=== PATIENT | male | born 1935 | race Caucasian/White ===

== ENCOUNTER 2016-08-19 02:28 | Emergency (ER) | payer MEDICARE, OTHER ==
[2016-08-19 02:38] VITALS: PULSE 72; O2SAT 96
[2016-08-19] MEDS ORDERED: ULTRAM 50 MG PO ONE (02:46)
--- NOTE | 2016-08-19 02:54 | ERPHSYRPT ---
- History of Present Illness Time Seen by Provider: 08/19/16 02:35 Source: patient Exam Limitations: no limitations Patient Subjective Stated Complaint: pt states approx 1/2 hour [employer] he was checking on something and missed a step and fell -he is co right knee pain and right upper back and scapular pain -there are no obvious signs of injury on he back and a scrape on the right knee -he is takative and ambulatory without difficulty on arr Triage Nursing Assessment: pt is awake and alert and able to answer questions- he undressed himself Physician History: ABOUT 30 MINUTES AGO PT MISSED A BASEMENT STEP AND FELL WITH RESULTANT PAIN IN THE RIGHT SHOULDER POSTERIORLY, RIGHT KNEE AND NECK. PT DENIES LOC, VOMITING, CHEST PAIN, SHORTNESS OF AIR, NUMBNESS, WEAKNESS. Allergies/Adverse Reactions: No Known Drug Allergies Allergy (Verified 08/19/16 02:45) Home Medications: Albuterol 8 gm Mdi Hfa [Ventolin Hfa MDI] 8 gm IH Q4HPRN PRN 04/12/14 [ History] Albuterol/Ipratropium cc [Combivent Inhaler COMMON CANISTER] 15 gm IH DAILY 04/12/14 [History] Ascorbic Acid [Vitamin C] 1,000 mg PO DAILY 04/12/14 [History] Aspirin 81 mg PO DAILY 04/12/14 [History] Atorvastatin Calcium [Lipitor] 10 mg PO QPM 04/12/14 [History] Calcium & Magnesium Carbonate [Antacid Gelatin Caplet] 1 each PO DAILY 04/12/14 [History] Lorazepam 0.5 mg [Ativan 0.5 MG] 0.5 mg PO HS 04/12/14 [History] Methylcellulose (with Sugar) [Citrucel Clear-Mix Powder] 539 gm PO DAILY [History] Multivitamin [Multi Vitamin Daily] 1 each PO DAILY 04/12/14 [History] Rabeprazole Sodium [Aciphex] 20 mg PO DAILY 04/12/14 [History] Hydrocodone Bit/Acetaminophen [[place] 10-325 Tablet] 1 tab DAILY PRN PRN [History] Hx Tetanus, Diphtheria Vaccination/Date Given: Yes Hx Influenza Vaccination/Date Given: Yes Hx Pneumococcal Vaccination/Date Given: Yes - Review of Systems Respiratory: No Dyspnea Cardiac: No Chest Pain Abdominal/Gastrointestinal: No Abdominal Pain, No Vomiting Musculoskeletal: Neck Pain, Joint Pain (RIGHT SHOULDER AND RIGHT KNEE PAIN ) All Other Systems: Reviewed and Negative - Past Medical History Pertinent Past Medical History: Yes Neurological History: No Pertinent History ENT History: No Pertinent History Cardiac History: No Pertinent History, Other Respiratory History: Bronchitis, COPD, Other Endocrine Medical History: No Pertinent History Musculoskeletal History: Osteoarthritis, Other GI Medical History: Hernia History: No Pertinent History Psycho-Social History: No Pertinent History Male Reproductive Disorders: No Pertinent History Other Medical History: heart murmur, Rheumatic fever - Past Surgical History Past Surgical History: Yes Neuro Surgical History: No Pertinent History Cardiac: No Pertinent History Respiratory: Other Gastrointestinal: Hernia Repair Genitourinary: No Pertinent History Musculoskeletal: No Pertinent History Male Surgical History: Prostate Surgery, Testicular Surgery Other Surgical History: sinus surgery - Social History Smoking Status: Never smoker How long have you smoked: 4 years Exposure to second hand smoke: No Drug Use: none Patient Lives Alone: No - Nursing Vital Signs Nursing Vital Signs: Initial Vital Signs Temperature 99.1 F Temperature Source Oral Pulse Rate 72 Respiratory Rate 16 Pain Intensity 4 - Debra Coma Score Best Eye Response ([place]): (4) open spontaneously Best Verbal Response ([place]): (5) oriented Best Motor Response ([place]): (6) obeys commands [place] Total: 15 - Physical Exam General Appearance: alert Head Injury: no evidence of injury Eye Exam: PERRL/EOMI, eyes nml inspection ENT Exam: airway nml, nml ext.inspection, hearing grossly normal, other ( CERUMEN OCCLUSION OF LEFT EAR) Neck Exam: trachea midline, full range of motion, No tenderness Respiratory/Chest Exam: normal breath sounds Cardiovascular Exam: normal heart sounds Gastrointestinal Exam: soft, normal bowel sounds, No tenderness Back Exam: normal range of motion Extremity Exam: normal range of motion, pelvis stable, tenderness (MILD TENDERNESS OF POSTERIOR ASPECT OF THE RIGHT SHOULDER.), No motor deficit, No pedal edema Peripheral Pulses: dorsalis-pedis (R): 3+, dorsalis-pedis (L): 3+ Neurologic Exam: alert, cooperative Skin Exam: abrasion (MILD TENDERNESS OVER AN ABRASION OF THE RIGHT KNEE) SpO2 Interpretation: normal SpO2: 96 Oxygen Delivery: Room Air - Course Nursing assessment & vital signs reviewed: Yes - Radiology Exams Right Knee X-ray Interpretation: Interpreted by me, No Fracture Right Shoulder X-ray Interpretation: Interpreted by me, No Fracture - CT Exams Cervical Spine CT Interpretation: Tele-radiologist Report (NO ACUTE OSSEOUS ABNORMALITY.) Ordered Tests: Active Orders 24 hr Category Date Time Status Cervical Collar Application STAT Care 08/19/16 03:55 Active Ear Irrigation STAT Care 08/19/16 02:46 Active Wound Care STAT Care 08/19/16 03:48 Active CERVICAL SPINE WO CONTRAST [CT] Stat Exams 08/19/16 02:48 Taken KNEE (3 VIEWS) Stat Exams 08/19/16 02:47 Taken SHOULDER Stat Exams 08/19/16 02:47 Taken Medication Summary Discontinued Medications Generic Name Dose Route Start Last Admin Trade Name Freq PRN Reason Stop Dose Admin Bacitracin Confirm 08/19/16 03:47 Baciguent Packet Administered 08/19/16 03:48 Dose 1 gm .ROUTE .STK-MED ONE Tramadol HCl 50 mg 08/19/16 02:46 08/19/16 03:21 Ultram 50 Mg PO 08/19/16 02:47 50 mg STAT ONE Administration Tramadol HCl Confirm 08/19/16 03:16 Ultram 50 Mg Administered 08/19/16 03:17 Dose 50 mg .ROUTE .STK-MED ONE - Progress Progress Note: 08/19/16 03:49 AFTER ER NURSE REMOVED CERUMEN BY IRRIGATION OF LEFT EAR LEFT TM IS WNL. - Departure Time of Disposition: 03:57 Departure Disposition: Home Clinical Impression: RIGHT SHOULDER SPRAIN, ABRASION/CONTUSION OF RIGHT KNEE, CERVICAL STRAIN, CERUMEN IMPACTION OF LEFT EAR Condition: Fair Critical Care Time: No Referrals: JESUS ALBERTO YEAGER [Primary Care Provider] - Instructions: Contusion, Prevent Falls, Cervical Strain Additional Instructions: FOLLOW UP WITH PRIVATE DOCTOR TOMORROW. NEOSPORIN & BANDAGE DAILY TO ABRASION ON RIGHT KNEE. WEAR SOFT C-COLLAR FOR 2 WEEKS ONLY WHILE AWAKE. Prescriptions: Naproxen 375 mg [Naprosyn 375 mg] 375 mg PO Q12H PRN PRN #20 tablet PRN Reason: Pain
[2016-08-19] MEDS ORDERED: ULTRAM 50 MG ONE (03:16)
[2016-08-19] MEDS ORDERED: BACIGUENT PACKET ONE (03:47)
[2016-08-19 04:22] VITALS: BP 150/80
[2016-08-19] MEDS ORDERED: BACIGUENT PACKET TP ONE (05:05)
--- NOTE | 2016-08-19 08:41 | XRAY ---
Indication: Neck and shoulder pain following fall. Multiple contiguous axial images obtained through the cervical spine. Sagittal and coronal reformatted images obtained. Comparison: April 19, 2014. Axial images again negative for acute fracture, suspicious bony lesions, or spinal canal stenosis. There remains multilevel bilateral degenerative facet arthropathy and atlantoaxial degenerative changes. Sagittal and coronal reformatted images demonstrates normal alignment. Again very minimal C5-C6 disc space narrowing. No acute compression fracture, subluxation, or jumped facet. Visualized noncontrasted soft tissues including base of the brain and lung apices are unremarkable. Impression: 1. Again negative for acute fracture/subluxation. 2. Stable multilevel degenerative changes. Comment: Preliminary interpretation was made by [facility]. No critical discrepancy. CT DI 108.27
--- NOTE | 2016-08-19 08:43 | XRAY ---
Indication: Pain following fall. Comparison: August 06, 2014 3 views of the right shoulder again demonstrates mild osteopenia and moderate AC degenerative arthropathy. No new/acute bony, articular, or soft tissue findings.
--- NOTE | 2016-08-19 08:45 | XRAY ---
Indication: Pain following fall. Comparison: September 28, 2013 3 views of the right knee again demonstrates mild osteopenia, minimal medial joint space narrowing, and tiny patellar spurring. No new/acute bony, articular, or soft tissue abnormalities.
== END 2016-08-19 04:15 | disposition home or self-care (01) ==
LOC: ED 02:28
DX: S43.401A Unspecified sprain of right shoulder joint, initial encounter (principal); S80.01XA Contusion of right knee, initial encounter; S80.211A Abrasion, right knee, initial encounter; S16.1XXA Strain of muscle, fascia and tendon at neck level, initial encounter; H61.22 Impacted cerumen, left ear; W10.9XXA Fall (on) (from) unspecified stairs and steps, initial encounter
CPT/HCPCS: 69210; 72125; 73030; 73562; 99283; 99284; L0120

== ENCOUNTER 2016-11-21 15:11 | Emergency (ER) | payer MEDICARE, OTHER ==
[2016-11-21 15:30] VITALS: BP 142/88; PULSE 50; O2SAT 98
--- NOTE | 2016-11-21 15:47 | ERPHSYRPT ---
- History of Present Illness Time Seen by Provider: 11/21/16 15:31 Source: patient Patient Subjective Stated Complaint: soreness in right ear. states if off balance Triage Nursing Assessment: right ear pain for three days. no drainage noted. states gets off balance when he has an earache. sees dr. jack. Physician History: CC: right ear pain Hx: 81 y/o patient of Dr Myrna Daly. He has some right ear pain and some vertigo when rolls in the bed. He has been on drops but not sure what they are. Has seen Dr Jack. No headache, N/T/W. Some soreness in the right ear. No chest or abd pain. No V/D. Severity: mild ENT Location: ear (R) Allergies/Adverse Reactions: No Known Drug Allergies Allergy (Verified 08/19/16 02:45) Home Medications: Albuterol 8 gm Mdi Hfa [Ventolin Hfa MDI] 8 gm IH Q4HPRN PRN 04/12/14 [ History] Albuterol/Ipratropium cc [Combivent Inhaler COMMON CANISTER] 15 gm IH DAILY 04/12/14 [History] Ascorbic Acid [Vitamin C] 1,000 mg PO DAILY 04/12/14 [History] Aspirin 81 mg PO DAILY 04/12/14 [History] Atorvastatin Calcium [Lipitor] 10 mg PO QPM 04/12/14 [History] Calcium & Magnesium Carbonate [Antacid Gelatin Caplet] 1 each PO DAILY 04/12/14 [History] Lorazepam 0.5 mg [Ativan 0.5 MG] 0.5 mg PO HS 04/12/14 [History] Methylcellulose (with Sugar) [Citrucel Clear-Mix Powder] 539 gm PO DAILY [History] Multivitamin [Multi Vitamin Daily] 1 each PO DAILY 04/12/14 [History] Rabeprazole Sodium [Aciphex] 20 mg PO DAILY 04/12/14 [History] Hydrocodone Bit/Acetaminophen [[place] 10-325 Tablet] 1 tab DAILY PRN PRN [History] Hx Tetanus, Diphtheria Vaccination/Date Given: Yes Hx Influenza Vaccination/Date Given: Yes Hx Pneumococcal Vaccination/Date Given: No - Review of Systems Constitutional: No Fever Eyes: No Symptoms Ears, Nose, & Throat: Ear Pain (right), No Nose Discharge Respiratory: Cough (on abtx for bronchitis) Abdominal/Gastrointestinal: No Abdominal Pain, No Nausea, No Vomiting Skin: No Rash Neurological: No Focal Weakness, No Headache, No Parasthesia - Past Medical History Pertinent Past Medical History: Yes Neurological History: No Pertinent History ENT History: No Pertinent History Cardiac History: No Pertinent History, Other Respiratory History: Bronchitis, COPD, Other Endocrine Medical History: No Pertinent History Musculoskeletal History: Osteoarthritis, Other GI Medical History: Hernia History: No Pertinent History Psycho-Social History: No Pertinent History Male Reproductive Disorders: No Pertinent History Other Medical History: heart murmur, Rheumatic fever - Past Surgical History Past Surgical History: Yes Neuro Surgical History: No Pertinent History Cardiac: No Pertinent History Respiratory: Other Gastrointestinal: Hernia Repair Genitourinary: No Pertinent History Musculoskeletal: No Pertinent History Male Surgical History: Prostate Surgery, Testicular Surgery Other Surgical History: sinus surgery - Social History Smoking Status: Never smoker How long have you smoked: 4 years Exposure to second hand smoke: No Drug Use: none Patient Lives Alone: No - Nursing Vital Signs Nursing Vital Signs: Initial Vital Signs Temperature 98.1 F Temperature Source Oral Pulse Rate 50 Respiratory Rate 18 Blood Pressure [Right Arm] 142/88 Pain Intensity 8 - Physical Exam General Appearance: alert Eye Exam: bilateral eye: PERRL, EOMI (no nystagmus) Throat Exam: normal Neck Exam: normal inspection, non-tender, supple Cardiovascular/Respiratory Exam: normal breath sounds Abdominal Exam: non-tender, soft Neurologic Exam: alert, oriented x 3, cooperative Skin Exam: warm, dry, No rash SpO2 Interpretation: normal SpO2: 98 Oxygen Delivery: Room Air Comments: right ear: pain with movement of the pinna. Some canal edema, erythema, debris. Not swollen shut. - Course Nursing assessment & vital signs reviewed: Yes - Progress Progress Note: 11/21/16 15:46 Normal tandem walk, normal FTN, normal exam. Will Rx right OE and he will follow up with Dr Jack. Counseled pt/family regarding: diagnosis, need for follow-up - Departure Time of Disposition: 15:46 Departure Disposition: Home Clinical Impression: Otitis externa of right ear Condition: Stable Critical Care Time: No Referrals: JESUS ALBERTO DALY [Primary Care Provider] - ALIREZA JACK MD [CONSULTING PHYSICIAN] - Instructions: Otitis Externa Additional Instructions: Nothing in ear except Rx drops. Rx antivert if needed for dizzines- no driving or operating machinery if you take it. Follow up next week with Dr Jack. Return for problems or concerns. Prescriptions: Meclizine HCl 12.5 mg PO Q8H PRN PRN #10 tablet PRN Reason: Dizziness Fernando/Baci/Poly/Hc Ear Solution* [CORTISPORIN EAR DROPS Solution 1OML] 10 ml OT UD #1 bottle
== END 2016-11-21 16:05 | disposition home or self-care (01) ==
LOC: ED 15:11
DX: H66.91 Otitis media, unspecified, right ear (principal); R05 Cough; R42 Dizziness and giddiness
CPT/HCPCS: 99281; 99283

== ENCOUNTER 2017-11-02 14:43 | Emergency (ER) | payer MEDICARE, OTHER ==
[2017-11-02 15:08] VITALS: BP 138/81; PULSE 78; O2SAT 95
[2017-11-02] MEDS ORDERED: Zofran 4 MG/2 ML VIAL IV ONE (15:15)
[2017-11-02] MEDS ORDERED: MORPHINE SULFATE 4 MG INJ IV ONE (15:15)
[2017-11-02] MEDS ORDERED: Sodium Chloride 0.9% 1000 ML 1,000 ML IV SCH (15:15)
--- NOTE | 2017-11-02 15:22 | ERPHSYRPT ---
- History of Present Illness Time Seen by Provider: 11/02/17 15:00 Historian: patient Exam Limitations: no limitations Patient Subjective Stated Complaint: pt reports abd pain upon waking this morning. states his pain comes and goes. denies any n/v or toileting difficulty. Triage Nursing Assessment: pt is aox3, pupils perrl, resps easy and non labored , radial pulses are strong and equal, abd is soft and tender with palpation to the lower left and right quadrants. abd is slightly distended. bowel sounds are present and normoactive x4. no edema appreciated. cap refill < 3 sec. skin is pink warm dry. pt afebrile. Physician History: Pt started c/o diffuse abdominal pain, distension since 8 AM today. He states, it feels like " I was ". He denies injury, no nausea, vomiting, fever, chills, no diarrhea or urinary complaints. He denies abdominal surgery in the past, but one testicle was removed because of a "nodule", but denies cancer. Timing/Duration: hour(s) (7) Activities at Onset: none Quality: fullness, pressure Abdominal Pain Onset Location: generalized abdomen Pain Radiation: no radiation Severity of Pain-Max: severe Severity of Pain-Current: moderate Modifying Factors: Improves With: nothing Associated Symptoms: denies symptoms Previous symptoms: no prior history Allergies/Adverse Reactions: No Known Drug Allergies Allergy (Verified 11/02/17 15:08) Home Medications: Albuterol 8 gm Mdi Hfa [Ventolin Hfa MDI] 8 gm IH Q4HPRN PRN 04/12/14 [ History] Albuterol/Ipratropium cc [Combivent Inhaler COMMON CANISTER] 15 gm IH DAILY 04/12/14 [History] Ascorbic Acid [Vitamin C] 1,000 mg PO DAILY 04/12/14 [History] Aspirin 81 mg PO DAILY 04/12/14 [History] Atorvastatin Calcium [Lipitor] 10 mg PO QPM 04/12/14 [History] Calcium & Magnesium Carbonate [Antacid Gelatin Caplet] 1 each PO DAILY 04/12/14 [History] Lorazepam 0.5 mg [Ativan 0.5 MG] 0.5 mg PO HS 04/12/14 [History] Methylcellulose (with Sugar) [Citrucel Clear-Mix Powder] 539 gm PO DAILY [History] Multivitamin [Multi Vitamin Daily] 1 each PO DAILY 04/12/14 [History] Rabeprazole Sodium [Aciphex] 20 mg PO DAILY 04/12/14 [History] Hydrocodone Bit/Acetaminophen [[place] 10-325 Tablet] 1 tab DAILY PRN PRN [History] Hx Tetanus, Diphtheria Vaccination/Date Given: Yes Hx Influenza Vaccination/Date Given: Yes Hx Pneumococcal Vaccination/Date Given: Yes Immunizations Up to Date: Yes - Review of Systems Constitutional: No Symptoms Abdominal/Gastrointestinal: Abdominal Pain All Other Systems: Reviewed and Negative - Past Medical History Pertinent Past Medical History: Yes Neurological History: No Pertinent History ENT History: No Pertinent History Cardiac History: No Pertinent History, Other Respiratory History: Bronchitis, COPD, Other Endocrine Medical History: No Pertinent History Musculoskeletal History: Osteoarthritis, Other GI Medical History: Hernia History: No Pertinent History Psycho-Social History: No Pertinent History Male Reproductive Disorders: No Pertinent History Other Medical History: heart murmur, Rheumatic fever - Past Surgical History Past Surgical History: Yes Neuro Surgical History: No Pertinent History Cardiac: No Pertinent History Respiratory: Other Gastrointestinal: Hernia Repair Genitourinary: No Pertinent History Musculoskeletal: No Pertinent History Male Surgical History: Prostate Surgery, Testicular Surgery Other Surgical History: sinus surgery - Social History Smoking Status: Never smoker How long have you smoked: 4 years Exposure to second hand smoke: No Drug Use: none Patient Lives Alone: No - Nursing Vital Signs Nursing Vital Signs: Initial Vital Signs Temperature 97.4 F 11/02/17 14:59 Pulse Rate 78 11/02/17 14:59 Respiratory Rate 20 11/02/17 14:59 Blood Pressure 138/81 11/02/17 14:59 O2 Sat by Pulse Oximetry 95 11/02/17 14:59 Pain Scale Pain Intensity 0 - Physical Exam General Appearance: no apparent distress Eye Exam: eyes nml inspection Ears, Nose, Throat Exam: normal ENT inspection Neck Exam: normal inspection, non-tender, supple Respiratory Exam: normal breath sounds, lungs clear, airway intact Cardiovascular Exam: regular rate/rhythm, normal heart sounds, normal peripheral pulses, No murmur Gastrointestinal/Abdomen Exam: soft, tenderness (diffuse), distention, other ( hyperactive bowel sounds), No mass, No guarding, No ecchymosis, No pulsatile mass Male Genitalia Exam: normal genitalia, testicular tenderness (mild left testicular tenderness, no mass, no scrotal edema, redness, no inguinal mass, or enlarged lynph node.), No hernia, No testicular mass, No prostate tenderness Rectal Exam: normal exam, No mass Back Exam: normal inspection, No CVA tenderness Extremity Exam: normal inspection Neurologic Exam: alert, oriented x 3, normal mood/affect Skin Exam: normal color, warm, dry, No rash Lymphatic Exam: No adenopathy SpO2 Interpretation: normal SpO2: 95 Oxygen Delivery: Room Air - Course Nursing assessment & vital signs reviewed: Yes - CT Exams Abdomen/Pelvis CT Interpretation: Other (Mild fluid distended small and large bowel loops with synchronous fluid levelinmg, ileus vs enterocolitis, no obstruction.) Ordered Tests: Active Orders 24 hr Category Date Time Status IV Insertion STAT Care 11/02/17 15:15 Active NPO (ED) STAT Care 11/02/17 15:15 Active ABDOMEN AND PELVIS W CONTRAST [CT] Stat Exams 11/02/17 15:15 Taken AMYLASE Stat Lab 11/02/17 15:00 Completed CBC W DIFF Stat Lab 11/02/17 15:00 Completed CMP Stat Lab 11/02/17 15:00 Completed LIPASE Stat Lab 11/02/17 15:00 Completed PROTIME WITH INR Stat Lab 11/02/17 15:00 Completed UA W/RFX UR CULTURE Stat Lab 11/02/17 18:12 Completed Medication Summary Generic Name Dose Route Start Last Admin Trade Name Freq PRN Reason Stop Dose Admin Sodium Chloride 1,000 mls @ 100 mls/hr 11/02/17 15:15 11/02/17 15:37 Sodium Chloride 0.9% 1000 Ml IV 12/02/17 15:14 100 mls/hr .Q10H HOMER Administration Discontinued Medications Generic Name Dose Route Start Last Admin Trade Name Freq PRN Reason Stop Dose Admin Morphine Sulfate 4 mg 11/02/17 15:15 11/02/17 15:37 Morphine Sulfate 4 Mg Inj IV 11/02/17 15:16 4 mg STAT ONE Administration Morphine Sulfate Confirm 11/02/17 15:36 Morphine Sulfate 4 Mg Inj Administered 11/02/17 15:37 Dose 4 mg .ROUTE .STK-MED ONE Ondansetron HCl 4 mg 11/02/17 15:15 11/02/17 15:37 Zofran 4 Mg/2 Ml Vial IV 11/02/17 15:16 4 mg STAT ONE Administration Ondansetron HCl Confirm 11/02/17 15:36 Zofran 4 Mg/2 Ml Vial Administered 11/02/17 15:37 Dose 4 mg .ROUTE .STK-MED ONE Lab/Rad Data: Laboratory Result Diagrams 11/02/17 15:00 11/02/17 15:00 Laboratory Results 11/02/17 11/02/17 11/02/17 Range/Units 18:12 15:00 15:00 WBC (4.0-10.5) K/mm3 RBC (4.1-5.6) M/mm3 Hgb (12.5-18.0) gm/dl Hct (42-50) % MCV (78-100) fl MCH (26-32) pg MCHC (32-36) g/dl RDW (11.5-14.0) % Plt Count (150-450) K/mm3 MPV (6-9.5) fl Gran % (36.0-66.0) % Eos # (Auto) (0-0.5) Absolute Lymphs (auto) (1.0-4.6) Absolute Monos (auto) (0.0-1.3) Lymphocytes % (24.0-44.0) % Monocytes % (0.0-12.0) % Eosinophils % (0.00-5.0) % Basophils % (0.0-0.4) % Absolute Granulocytes (1.4-6.9) Basophils # (0-0.4) PT 12.2 (8.83-12.87) SECONDS INR 1.10 (0.8-3.0) Sodium 134 L (137-145) mmol/L Potassium 3.9 (3.5-5.1) mmol/L Chloride 95 L (98-107) mmol/L Carbon Dioxide 28 (22-30) mmol/L Anion Gap 14.2 (5-15) MEQ/L BUN 16 (9-20) mg/dL Creatinine 0.66 (0.66-1.25) mg/dL Estimated GFR > 60.0 ML/MIN Glucose 125 H (74-106) mg/dL Calcium 9.3 (8.4-10.2) mg/dL Total Bilirubin 0.70 (0.2-1.3) mg/dL AST 25 (17-59) U/L ALT 21 (0-50) U/L Alkaline Phosphatase 63 (38-126) U/L Serum Total Protein 7.4 (6.3-8.2) g/dL Albumin 4.3 (3.5-5.0) g/dL Amylase 67 (30-110) U/L Lipase 65 (23-300) U/L Ur Collection Type VOID Urine Color YELLOW (YELLOW) Urine Appearance CLEAR (CLEAR) Urine pH 7.0 (5-6) Ur Specific [place] 1.010 (1.005-1.025) Urine Protein NEGATIVE (Negative) Urine Ketones NEGATIVE (NEGATIVE) Urine Blood NEGATIVE (0-5) Tino/ul Urine Nitrite NEGATIVE (NEGATIVE) Urine Bilirubin NEGATIVE (NEGATIVE) Urine Urobilinogen NORMAL (0-1) mg/dL Ur Leukocyte Esterase NEGATIVE (NEGATIVE) Urine Culture Reflexed NO (NO) Urine Glucose NEGATIVE (NEGATIVE) mg/dL Specimen Received 11/02/17 1812 11/02/17 Range/Units 15:00 WBC 15.9 H (4.0-10.5) K/mm3 RBC 4.69 (4.1-5.6) M/mm3 Hgb 14.6 (12.5-18.0) gm/dl Hct 43.3 (42-50) % MCV 92.3 (78-100) fl MCH 31.1 (26-32) pg MCHC 33.7 (32-36) g/dl RDW 13.2 (11.5-14.0) % Plt Count 241 (150-450) K/mm3 MPV 8.4 (6-9.5) fl Gran % 75.9 H (36.0-66.0) % Eos # (Auto) 0.09 (0-0.5) Absolute Lymphs (auto) 2.28 (1.0-4.6) Absolute Monos (auto) 1.41 H (0.0-1.3) Lymphocytes % 14.4 L (24.0-44.0) % Monocytes % 8.9 (0.0-12.0) % Eosinophils % 0.6 (0.00-5.0) % Basophils % 0.2 (0.0-0.4) % Absolute Granulocytes 12.05 H (1.4-6.9) Basophils # 0.03 (0-0.4) PT (8.83-12.87) SECONDS INR (0.8-3.0) Sodium (137-145) mmol/L Potassium (3.5-5.1) mmol/L Chloride (98-107) mmol/L Carbon Dioxide (22-30) mmol/L Anion Gap (5-15) MEQ/L BUN (9-20) mg/dL Creatinine (0.66-1.25) mg/dL Estimated GFR ML/MIN Glucose (74-106) mg/dL Calcium (8.4-10.2) mg/dL Total Bilirubin (0.2-1.3) mg/dL AST (17-59) U/L ALT (0-50) U/L Alkaline Phosphatase (38-126) U/L Serum Total Protein (6.3-8.2) g/dL Albumin (3.5-5.0) g/dL Amylase (30-110) U/L Lipase (23-300) U/L Ur Collection Type Urine Color (YELLOW) Urine Appearance (CLEAR) Urine pH (5-6) Ur Specific [place] (1.005-1.025) Urine Protein (Negative) Urine Ketones (NEGATIVE) Urine Blood (0-5) Tino/ul Urine Nitrite (NEGATIVE) Urine Bilirubin (NEGATIVE) Urine Urobilinogen (0-1) mg/dL Ur Leukocyte Esterase (NEGATIVE) Urine Culture Reflexed (NO) Urine Glucose (NEGATIVE) mg/dL Specimen Received - Progress Progress: improved Progress Note: 11/02/17 18:59 Pt has been afebrile, denies nausea, or vomiting, no severe pain. I explained our findings to him and his family, I called Dr Lee, discussed our results and this patient's current condition, he agreed with our plan to discharge him and to call Dr Sandoval's office in the morning for close follow up and arrangements for outpatient scrotal US. Pt and his family also agreed,. Discussed with : Rosa Will see patient in: office Counseled pt/family regarding: lab results, diagnosis, need for follow-up, rad results - Departure Time of Disposition: 19:02 Departure Disposition: Home Clinical Impression: Testicular pain, left Abdominal pain Qualifiers: Abdominal location: generalized Qualified Code(s): R10.84 - Generalized abdominal pain Condition: Stable Critical Care Time: No Referrals: JESUS ALBERTO YEAGER [Primary Care Provider] - Instructions: Acute Abdomen (Belly Pain), Adult (DC) Additional Instructions: Folloow up with your physician in 1-2 days, return if severe pain, vomiting, fever > 102 F!
[2017-11-02 15:27] LABS: BASOPHIL % 0.2 % (0.0-0.4); Basophil (Absolute #) 0.03 (0-0.4); Eosinophil % 0.6 % (0.00-5.0); Eosinophil (Absolute #) 0.09 (0-0.5); Granulocyte Absolute (ANC) 12.05 (1.4-6.9); Granulocytes % 75.9 % (36.0-66.0); Hematocrit 43.3 % (42-50); Hemoglobin 14.6 gm/dl (12.5-18.0); Lymphocyte (Absolute #) 2.28 (1.0-4.6); Lymphocytes % 14.4 % (24.0-44.0); Mean Cell Volume 92.3 fl (78-100); Mean Corpuscular Hemoglobin 31.1 pg (26-32); Mean Corpuscular Hgb Concent. 33.7 g/dl (32-36); Mean Platelet Volume 8.4 fl (6-9.5); Monocyte (Absolute #) 1.41 (0.0-1.3); Monocytes % 8.9 % (0.0-12.0); Platelet Count 241 K/mm3 (150-450); Red Blood Count 4.69 M/mm3 (4.1-5.6); Red Cell Distribution Width 13.2 % (11.5-14.0); White Blood Count 15.9 K/mm3 (4.0-10.5)
[2017-11-02] MEDS ORDERED: Sodium Chloride 0.9% 1000 ML 1,000 ML ONE (15:36)
[2017-11-02] MEDS ORDERED: Zofran 4 MG/2 ML VIAL ONE (15:36)
[2017-11-02] MEDS ORDERED: MORPHINE SULFATE 4 MG INJ ONE (15:36)
[2017-11-02 15:45] LABS: INR 1.1 (0.8-3.0)
[2017-11-02 15:53] LABS: ALBUMIN 4.3 g/dL (3.5-5.0); ALKALINE PHOSPHATASE 63 U/L (38-126); AMYLASE 67 U/L (30-110); ANION GAP 14.2 MEQ/L (5-15); BLOOD UREA NITROGEN 16 mg/dL (9-20); CHLORIDE 95 mmol/L (98-107); Calcium 9.3 mg/dL (8.4-10.2); Carbon Dioxide 28 mmol/L (22-30); Creatinine 1 0.66 mg/dL (0.66-1.25); Glucose 125 mg/dL (74-106); LIPASE 65 U/L (23-300); Potassium 3.9 mmol/L (3.5-5.1); SGOT/AST 25 U/L (17-59); SGPT/ALT 21 U/L (0-50); SODIUM 134 mmol/L (137-145); Total Protein 7.4 g/dL (6.3-8.2)
[2017-11-02 18:33] LABS: Appearance CLEAR (CLEAR); Bilirubin NEGATIVE (NEGATIVE); Blood NEGATIVE Ery/ul (0-5); Glucose NEGATIVE (NEGATIVE); Ketones NEGATIVE (NEGATIVE); Leukocyte Esterase NEGATIVE (NEGATIVE); Nitrite NEGATIVE (NEGATIVE); Protein,Urine Dip NEGATIVE (Negative); Urobilinogen NORMAL mg/dL (0-1)
--- NOTE | 2017-11-03 10:55 | XRAY ---
Indication: Abdominal pain. Constipation. Multiple contiguous axial images obtained through the abdomen and pelvis using 80 cc Isovue-370 contrast only. Comparison: April 30, 2016. Lung bases again demonstrates bibasilar fibrosis/scarring. No infiltrate or effusion. Heart is not enlarged. Noncontrasted stomach and bowel loops appear nonobstructed. There are several mild uniformly fluid distended small and large bowel loops with synchronous fluid leveling, ileus versus enterocolitis. Normal appendix. Minimal proximal sigmoid diverticulosis without diverticulitis. No free fluid/air. Stable left lobe hepatic cyst, right parapelvic renal cyst, mild urinary bladder wall thickening, enlarged prostate gland, hepatic/splenic calcified granulomas, and tiny fatty umbilical hernia. Remaining liver, gallbladder, pancreas, spleen, adrenal glands, kidneys, ureters, and bladder appear unremarkable. There remains mild aortoiliac calcifications. No AAA or pathologic retroperitoneal lymphadenopathy. Osseous structures intact again with mild lower lumbar degenerative changes. Impression: 1. Mild fluid distended small and large bowel loops with synchronous fluid leveling, ileus versus enterocolitis. 2. Minimal sigmoid diverticulosis without diverticulitis. 3. 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 CTDI 22.54
== END 2017-11-02 19:28 | disposition home or self-care (01) ==
LOC: ED 14:43
DX: N50.812 Left testicular pain (principal); R10.84 Generalized abdominal pain; Z79.82 Long term (current) use of aspirin; Z79.899 Other long term (current) drug therapy
CPT/HCPCS: 36000; 36415; 74177; 80053; 81002; 82150; 82270; 83690; 85025; 85610; 96360; 96361; 96374; 96375; 99283; 99284; J2270; J2405

== ENCOUNTER 2017-12-08 16:44 | Emergency (ER) | payer MEDICARE, OTHER ==
[2017-12-08 17:09] VITALS: BP 130/70; PULSE 86; O2SAT 96
[2017-12-08] MEDS ORDERED: Adacel Vial IM ONE ×2 (17:29→17:35)
[2017-12-08] MEDS ORDERED: TYLENOL 325 MG PO ONE (17:30)
[2017-12-08] MEDS ORDERED: TYLENOL 325 MG ONE (17:35)
--- NOTE | 2017-12-08 17:37 | ERPHSYRPT ---
- History of Present Illness Time Seen by Provider: 12/08/17 17:23 Source: patient Patient Subjective Stated Complaint: pt reports he tripped and fell a few hrs ago-reports pain to finger-skin tear to left forearm Triage Nursing Assessment: pt pink warm and far-[id number] with no limp noted-alert and answering all questions with ease Physician History: 82-year-old white male arrives with complaints of a skin tear to his left forearm, tightness in the trapezius muscle at the base of the left side of the neck and pain in his right third finger after slipping on the porch 3 hours prior to arrival denies hitting his head denies loss of consciousness. Past medical history includes COPD, bronchitis, hernia, osteoarthritis, heart murmur, rheumatic fever, Past surgical history includes hernia repair, prostate surgery, testicular surgery, sinus repair Social history patient denies tobacco alcohol or illicit drug use Timing/Duration: today (3 hours prior to arrival) Severity: moderate Modifying Factors: Improves With: nothing Associated Symptoms: No denies symptoms, No nausea, No vomiting, No abdominal pain, No heartburn, No diaphoresis, No cough, No chills, No chest pain, No fever , No headaches, No loss of appetite, No malaise, No rash, No syncope, No seizure Allergies/Adverse Reactions: No Known Drug Allergies Allergy (Verified 12/08/17 17:10) Home Medications: Albuterol 8 gm Mdi Hfa [Ventolin Hfa MDI] 8 gm IH Q4HPRN PRN 04/12/14 [ History] Albuterol/Ipratropium cc [Combivent Inhaler COMMON CANISTER] 15 gm IH DAILY 04/12/14 [History] Ascorbic Acid [Vitamin C] 1,000 mg PO DAILY 04/12/14 [History] Aspirin 81 mg PO DAILY 04/12/14 [History] Atorvastatin Calcium [Lipitor] 10 mg PO QPM 04/12/14 [History] Calcium & Magnesium Carbonate [Antacid Gelatin Caplet] 1 each PO DAILY 04/12/14 [History] Lorazepam 0.5 mg [Ativan 0.5 MG] 0.5 mg PO HS 04/12/14 [History] Methylcellulose (with Sugar) [Citrucel Clear-Mix Powder] 539 gm PO DAILY [History] Multivitamin [Multi Vitamin Daily] 1 each PO DAILY 04/12/14 [History] Rabeprazole Sodium [Aciphex] 20 mg PO DAILY 04/12/14 [History] Hydrocodone Bit/Acetaminophen [Keene 10-325 Tablet] 1 tab DAILY PRN PRN [History] Hx Tetanus, Diphtheria Vaccination/Date Given: Yes Hx Influenza Vaccination/Date Given: Yes Hx Pneumococcal Vaccination/Date Given: Yes Immunizations Up to Date: Yes - Review of Systems Constitutional: No Fever, No Chills Eyes: No Symptoms Ears, Nose, & Throat: No Symptoms Respiratory: No Cough, No Dyspnea Cardiac: No Chest Pain, No Edema, No Syncope Abdominal/Gastrointestinal: No Abdominal Pain, No Nausea, No Vomiting, No Diarrhea Genitourinary Symptoms: No Dysuria Musculoskeletal: Neck Pain (pain at trapezius at the base of the neck on the left), Other (pain right third finger) Skin: Other (skin tear left proximal forearm) Neurological: No Dizziness, No Focal Weakness, No Sensory Changes Psychological: No Symptoms Endocrine: No Symptoms All Other Systems: Reviewed and Negative - Past Medical History Pertinent Past Medical History: Yes Neurological History: No Pertinent History ENT History: No Pertinent History Cardiac History: No Pertinent History, Other Respiratory History: Bronchitis, COPD, Other Endocrine Medical History: No Pertinent History Musculoskeletal History: Osteoarthritis, Other GI Medical History: Hernia History: No Pertinent History Psycho-Social History: No Pertinent History Male Reproductive Disorders: No Pertinent History Other Medical History: heart murmur, Rheumatic fever - Past Surgical History Past Surgical History: Yes Neuro Surgical History: No Pertinent History Cardiac: No Pertinent History Respiratory: Other Gastrointestinal: Hernia Repair Genitourinary: No Pertinent History Musculoskeletal: No Pertinent History Male Surgical History: Prostate Surgery, Testicular Surgery Other Surgical History: sinus surgery - Social History Smoking Status: Never smoker How long have you smoked: 4 years Exposure to second hand smoke: No Drug Use: none Patient Lives Alone: No - Nursing Vital Signs Nursing Vital Signs: Initial Vital Signs Temperature 98.1 F 12/08/17 17:07 Pulse Rate 86 12/08/17 17:07 Respiratory Rate 18 12/08/17 17:07 Blood Pressure 130/70 12/08/17 17:07 O2 Sat by Pulse Oximetry 96 12/08/17 17:07 Pain Scale Pain Intensity 4 - Physical Exam General Appearance: mild distress Eye Exam: PERRL/EOMI, eyes nml inspection Ears, Nose, Throat Exam: normal ENT inspection, TMs normal, pharynx normal, moist mucous membranes Neck Exam: other (neck tender with palpation at trapezezius at base of neck laterally) Respiratory Exam: normal breath sounds, lungs clear, No respiratory distress Cardiovascular Exam: regular rate/rhythm, normal heart sounds, normal peripheral pulses Gastrointestinal/Abdomen Exam: soft, normal bowel sounds, No tenderness, No mass Back Exam: normal inspection, normal range of motion, No CVA tenderness, No vertebral tenderness Extremity Exam: other (pain with movement right third finger,skin tear left proximal forearm full range of motion all extremities) Neurologic Exam: alert, oriented x 3, cooperative, normal mood/affect, nml cerebellar function, nml station & gait, sensation nml, No motor deficits Skin Exam: normal color, warm, dry, No rash SpO2 Interpretation: normal (96%) SpO2: 96 Oxygen Delivery: Room Air - Radiology Exams C-Spine X-ray Interpretation: Interpreted by me, Negative, No Fracture, No Subluxation Right Hand X-ray Interpretation: Interpreted by me, Negative, No Fracture, No Subluxation Ordered Tests: Active Orders 24 hr Category Date Time Status Wound Care STAT Care 12/08/17 17:29 Active CERVICAL SPINE (2 OR 3 VIEW) Stat Exams 12/08/17 17:29 Taken HAND (MINIMUM 3 VIEWS) Stat Exams 12/08/17 17:30 Taken Medication Summary Discontinued Medications Generic Name Dose Route Start Last Admin Trade Name Teetee PRN Reason Stop Dose Admin Acetaminophen 650 mg 12/08/17 17:30 12/08/17 17:57 Tylenol 325 Mg PO 12/08/17 17:31 650 mg STAT ONE Administration Acetaminophen Confirm 12/08/17 17:35 Tylenol 325 Mg Administered 12/08/17 17:36 Dose 650 mg .ROUTE .STK-MED ONE Diphtheria/Tetanus/Acell Pertussis 0.5 ml 12/08/17 17:29 12/08/17 17:57 Adacel Vial IM 12/08/17 17:30 0.5 ml .ONCE ONE Administration Diphtheria/Tetanus/Acell Pertussis Confirm 12/08/17 17:35 Adacel Vial Administered 12/08/17 17:36 Dose 0.5 ml IM .STK-MED ONE - Progress Progress: improved Progress Note: 12/08/17 18:09 Skin tear left arm 3 cm repaired by nurse with Steri-Strips after sterile cleansing. Patient is updated on DTaP. X-rays of his cervical spine no acute fractures, no dislocation. , X-ray of patient right hand no fractures no dislocation Patient is doing well Will discharge we'll have the nurses place a splint on the patient's right third finger he has some pain and swelling at the PIP joint. - Departure Time of Disposition: 18:10 Departure Disposition: Home Clinical Impression: sprain right third finger PIP Accidental fall Qualifiers: Encounter type: initial encounter Qualified Code(s): W19.XXXA - Unspecified fall, initial encounter Cervical strain Qualifiers: Encounter type: initial encounter Qualified Code(s): S16.1XXA - Strain of muscle, fascia and tendon at neck level, initial encounter Skin tear of left forearm without complication Qualifiers: Encounter type: initial encounter Qualified Code(s): S51.812A - Laceration without foreign body of left forearm, initial encounter Condition: Fair Critical Care Time: No Referrals: JESUS ALBERTO YEAGER [Primary Care Provider] - Additional Instructions: Return home. Tylenol every 4 hours as needed for pain. Cold packs to right third finger 24-48 hours. Follow-up with your family doctor if signs of infection problems. Return for acute distress or for severe symptoms. Follow-up with your family Dr. symptoms are worse no better in 48 hours or persist longer than one week.
--- NOTE | 2017-12-09 09:47 | XRAY ---
Exam: 3 view cervical spine series from 12/08/2017. Comparison: Cervical spine films from 11/26/2016. Indication: Fall, left-sided neck pain Findings: AP, open-mouth odontoid, and lateral images of the cervical spine were obtained. I see no acute cervical spine fracture, AP traumatic subluxation, or prevertebral soft tissue swelling. There is mild relative narrowing of the C5-C6 interspace height as compared to the other cervical interspaces. Minimal anterior vertebral endplate spurring is seen throughout the cervical spine from C3-C4 through C6-C7. Advanced posterior facet joint arthropathy is seen on the lateral image. A couple nuchal ligament calcifications are seen posterior to the mid cervical spine and the lower cervical spine representing no change. The mouth is mostly edentulous. I believe there is about 1 mm anterolisthesis of C4 over C5, 2 mm anterolisthesis of C5 over C6, and about 3 mm anterolisthesis of C6 over C7 on the lateral image. I don't believe this has changed significantly from the lateral images on 11/26/2016. The AP film reveals advanced osteoarthritic changes of the apophyseal joints within the mid and lower cervical spine. No cervical ribs are seen. Some mild degenerative changes are seen within the uncovertebral joints. The open-mouth odontoid view reveals minor spurring at the lateral margin of the C1 lateral mass and the dens, right greater than left. Impression: 1. There is no evidence of acute cervical spine fracture, AP traumatic subluxation, or prevertebral soft tissue swelling. 2. I see evidence of mild degenerative disc disease at C5-C6 and extensive degenerative joint disease within the cervical facet joints/apophyseal joints. This is unchanged. 3. Approximately 1 mm anterolisthesis of C4 over C5, 2 mm anterolisthesis of C5 over C6, and 3 mm anterolisthesis of C6 over C7 are seen on the lateral image representing no change from 11/26/2016. This is probably due to arthritis.
--- NOTE | 2017-12-09 09:52 | XRAY ---
Exam: 3 views the right hand from 12/08/2017. Comparison: 3 views the right hand from 11/07/2014. Indication: Fall, pain within right third digit. Findings: AP, oblique, and lateral radiographs of the right hand were obtained. Mild periarticular bone demineralization is seen. I see no acute fracture or dislocation, particularly involving the right third finger. Mild generalized narrowing of the interphalangeal joints of the right hand is again seen, most pronounced at the DIP joint of the third finger where I note mild alignment deformity. This is unchanged. There is minor spurring at the dorsal aspect of the PIP joint of the right third finger. I again note at least moderate osteoarthritis affecting the carpal-first metacarpal joint space. Minor radial subluxation of the base of the first metacarpal is again seen. The carpal bones appear grossly intact. The radiocarpal joint space appears unremarkable. Impression: 1. I see no acute fracture or dislocation within the right hand. 2. Age-related osteopenia and some scattered degenerative osteoarthritic changes are seen, as described above. These findings appear similar to 11/07/2014.
== END 2017-12-08 18:35 | disposition home or self-care (01) ==
LOC: ED 16:44
DX: S63.632A Sprain of interphalangeal joint of right middle finger, initial encounter (principal); S51.812A Laceration without foreign body of left forearm, initial encounter; S16.1XXA Strain of muscle, fascia and tendon at neck level, initial encounter; W01.0XXA Fall on same level from slipping, tripping and stumbling without subsequent striking against object, initial encounter; J44.9 Chronic obstructive pulmonary disease, unspecified; M19.90 Unspecified osteoarthritis, unspecified site
CPT/HCPCS: 72040; 73130; 90471; 90715; 99284; A9270-GY

== ENCOUNTER 2018-06-23 09:53 | Emergency (ER) | payer MEDICARE, OTHER ==
[2018-06-23] MEDS ORDERED: Phenergan 25 MG INJ IV ONE (10:18)
--- NOTE | 2018-06-23 10:26 | ERPHSYRPT ---
- History of Present Illness Time Seen by Provider: 06/23/18 10:13 Historian: patient Exam Limitations: no limitations Patient Subjective Stated Complaint: abdominal pain for 1 1/2 days with vomiting yesterday. seen at MD office for same. low abdominal pain with BM yesterday. low grade temp Triage Nursing Assessment: alert and in no distress.. states vomiting since yesterday.. seen at MD office yesterday for same. abdomen soft slightly tender on palp. + BSx4. denies urinary sx. Physician History: 82-year-old white male with history of COPD, bronchitis, hernia, osteoarthritis , heart murmur, rheumatic fever. Patient arrives with complaint of 2 days of nausea vomiting lower abdominal pain . Patient states he had a CT of his abdomen yesterday and blood work he states that he continues to have the above noted symptoms. Pain in his abdomen is in this Lowe's bilateral suprapubic region patient is sure that he has an obstruction. Past medical history includes COPD, bronchitis, hernia, osteoarthritis, heart murmur, rheumatic fever Past surgical history includes hernia repair, prostate surgery, testicular surgery, sinus surgery Social history patient denies tobacco alcohol or illicit drug use. Timing/Duration: day(s) (2 days) Activities at Onset: none Quality: cramping Abdominal Pain Onset Location: other (bilateral lower abdomen) Pain Radiation: no radiation Severity of Pain-Max: moderate Severity of Pain-Current: moderate Modifying Factors: Improves With: vomiting. Worsens With: analgesics, antacids , breathing, coughing, defecating, eating, exercise, lying down, movement, palpation, rest, urinating, position, walking Associated Symptoms: nausea, vomiting, No back, No chest pain, No diaphoresis, No diarrhea, No fever/chills, No fatigue, No headache, No heartburn, No loss of appetite, No neck pain, No rash, No shortness of breath, No syncope, No testicular pain, No weakness Previous symptoms: recently seen (patient was CT of the abdomen and lab work yesterday) Allergies/Adverse Reactions: morphine Allergy (Verified 06/23/18 10:46) unknown rx Home Medications: Albuterol 8 gm Mdi Hfa [Ventolin Hfa MDI] 8 gm IH Q4HPRN PRN 04/12/14 [ History] Ascorbic Acid [Vitamin C] 1,000 mg PO DAILY 04/12/14 [History] Aspirin 81 mg PO DAILY 04/12/14 [History] Atorvastatin Calcium [Lipitor] 10 mg PO QPM 04/12/14 [History] Calcium & Magnesium Carbonate [Antacid Gelatin Caplet] 1 each PO DAILY 04/12/14 [History] Lorazepam 0.5 mg [Ativan 0.5 MG] 0.5 mg PO HS 04/12/14 [History] Methylcellulose (with Sugar) [Citrucel Clear-Mix Powder] 539 gm PO DAILY [History] Multivitamin [Multi Vitamin Daily] 1 each PO DAILY 04/12/14 [History] Rabeprazole Sodium [Aciphex] 20 mg PO DAILY 04/12/14 [History] Hydrocodone Bit/Acetaminophen [[place] 10-325 Tablet] 1 tab DAILY PRN PRN [History] Cefdinir 300 mg PO TID 06/23/18 [History] Naproxen 375 mg [Naprosyn 375 mg] 550 mg PO Q12H PRN PRN 06/23/18 [History ] Hx Tetanus, Diphtheria Vaccination/Date Given: Yes Hx Influenza Vaccination/Date Given: Yes Hx Pneumococcal Vaccination/Date Given: Yes - Review of Systems Constitutional: No Fever, No Chills Eyes: No Symptoms Ears, Nose, & Throat: No Symptoms Respiratory: No Cough, No Dyspnea Cardiac: No Chest Pain, No Edema, No Syncope Abdominal/Gastrointestinal: Abdominal Pain (Bilateral lower abdominal pain), Nausea, Vomiting, No Diarrhea, No Constipation, No Hematemesis, No Hematochezia , No Melena, No Dysphagia, No Appetite Changes Genitourinary Symptoms: No Dysuria Musculoskeletal: No Back Pain, No Neck Pain Skin: No Symptoms, No Rash Neurological: No Dizziness, No Focal Weakness, No Sensory Changes Psychological: No Symptoms Endocrine: No Symptoms All Other Systems: Reviewed and Negative - Past Medical History Pertinent Past Medical History: Yes Neurological History: No Pertinent History ENT History: No Pertinent History Cardiac History: No Pertinent History, Other Respiratory History: Bronchitis, COPD, Other Endocrine Medical History: No Pertinent History Musculoskeletal History: Osteoarthritis, Other GI Medical History: Hernia History: No Pertinent History Psycho-Social History: No Pertinent History Male Reproductive Disorders: No Pertinent History Other Medical History: heart murmur, Rheumatic fever - Past Surgical History Past Surgical History: Yes Neuro Surgical History: No Pertinent History Cardiac: No Pertinent History Respiratory: Other Gastrointestinal: Hernia Repair Genitourinary: No Pertinent History Musculoskeletal: No Pertinent History Male Surgical History: Prostate Surgery, Testicular Surgery Other Surgical History: sinus surgery - Social History Smoking Status: Never smoker How long have you smoked: 4 years Exposure to second hand smoke: No Drug Use: none Patient Lives Alone: No - Nursing Vital Signs Nursing Vital Signs: Initial Vital Signs Temperature 99.7 F 06/23/18 10:04 Pulse Rate 116 H 06/23/18 10:04 Respiratory Rate 18 06/23/18 10:04 Blood Pressure 142/81 06/23/18 10:04 O2 Sat by Pulse Oximetry 90 L 06/23/18 10:04 Pain Scale Pain Intensity 3 - Physical Exam General Appearance: mild distress, alert Eye Exam: PERRL/EOMI, eyes nml inspection Ears, Nose, Throat Exam: normal ENT inspection, pharynx normal, moist mucous membranes Neck Exam: normal inspection, non-tender, supple, full range of motion Respiratory Exam: normal breath sounds, lungs clear, No respiratory distress Cardiovascular Exam: regular rate/rhythm, normal heart sounds, normal peripheral pulses, capillary refill <2 sec, No murmur Gastrointestinal/Abdomen Exam: soft, normal bowel sounds, tenderness (Bilateral lower abdominal tenderness), No mass, No pulsatile mass Back Exam: normal inspection, normal range of motion, No CVA tenderness, No vertebral tenderness Extremity Exam: normal inspection, normal range of motion, pelvis stable Neurologic Exam: alert, oriented x 3, cooperative, auto brake mechanic II-XII nml as tested, normal mood/affect, nml cerebellar function, sensation nml, No motor deficits Skin Exam: normal color, warm, dry SpO2 Interpretation: normal (90%) SpO2: 90 Oxygen Delivery: Nasal Cannula - Course Nursing assessment & vital signs reviewed: Yes - Radiology Exams Abdomen X-ray Interpretation: Discussed w/ radiologist (three-view abdominal series: Impression: 1. Negative abdomen 2.new interstitial alveolar opacities left greater than right.) Ordered Tests: Active Orders 24 hr Category Date Time Status OBSTR/ACUTE ABDOMEN SERIES Stat Exams 06/23/18 10:12 Completed AMYLASE Stat Lab 06/23/18 10:47 Completed BLOOD CULTURE Stat Lab 06/23/18 12:15 Ordered CBC W DIFF Stat Lab 06/23/18 10:47 Completed CMP Stat Lab 06/23/18 10:47 Completed CULTURE,SPUTUM Stat Lab 06/23/18 11:28 Uncollected LIPASE Stat Lab 06/23/18 10:47 Completed UA W/RFX UR CULTURE Stat Lab 06/23/18 10:12 Uncollected Medication Summary Generic Name Dose Route Start Last Admin Trade Name Freq PRN Reason Stop Dose Admin Sodium Chloride 1,000 mls @ 100 mls/hr 06/23/18 10:30 06/23/18 10:35 Sodium Chloride 0.9% 1000 Ml IV 07/23/18 10:29 100 mls/hr .Q10H HOMER Administration Levofloxacin/Dextrose 750 mg in 150 mls @ 100 mls/hr 06/23/18 12:05 Levofloxacin 750mg/150ml D5w IV 06/23/18 13:34 STAT STA Discontinued Medications Generic Name Dose Route Start Last Admin Trade Name Freq PRN Reason Stop Dose Admin Promethazine HCl 12.5 mg 06/23/18 10:18 06/23/18 10:34 Phenergan 25 Mg Inj IV 06/23/18 10:19 12.5 mg STAT ONE Administration Promethazine HCl Confirm 06/23/18 10:31 Phenergan 25 Mg Inj Administered 06/23/18 10:32 Dose 25 mg .ROUTE .STK-MED ONE Lab/Rad Data: Laboratory Result Diagrams 06/23/18 10:47 06/23/18 10:47 Laboratory Results 06/23/18 06/23/18 Range/Units 10:47 10:47 WBC 20.1 H (4.0-10.5) K/mm3 RBC 4.68 (4.1-5.6) M/mm3 Hgb 14.7 (12.5-18.0) gm/dl Hct 43.2 (42-50) % MCV 92.3 (78-100) fl MCH 31.4 (26-32) pg MCHC 34.0 (32-36) g/dl RDW 12.8 (11.5-14.0) % Plt Count 262 (150-450) K/mm3 MPV 9.2 (6-9.5) fl Gran % 88.5 H (36.0-66.0) % Eos # (Auto) 0.09 (0-0.5) Absolute Lymphs (auto) 1.48 (1.0-4.6) Absolute Monos (auto) 0.73 (0.0-1.3) Lymphocytes % 7.4 L (24.0-44.0) % Monocytes % 3.6 (0.0-12.0) % Eosinophils % 0.4 (0.00-5.0) % Basophils % 0.1 (0.0-0.4) % Absolute Granulocytes 17.76 H (1.4-6.9) Basophils # 0.02 (0-0.4) Sodium 132 L (137-145) mmol/L Potassium 3.7 (3.5-5.1) mmol/L Chloride 92 L (98-107) mmol/L Carbon Dioxide 29 (22-30) mmol/L Anion Gap 16.0 H (5-15) MEQ/L BUN 11 (9-20) mg/dL Creatinine 0.67 (0.66-1.25) mg/dL Estimated GFR > 60.0 ML/MIN Glucose 137 H (74-106) mg/dL Calcium 9.4 (8.4-10.2) mg/dL Total Bilirubin 1.40 H (0.2-1.3) mg/dL AST 25 (17-59) U/L ALT 17 (0-50) U/L Alkaline Phosphatase 61 (38-126) U/L Serum Total Protein 7.4 (6.3-8.2) g/dL Albumin 4.5 (3.5-5.0) g/dL Amylase 67 (30-110) U/L Lipase 64 (23-300) U/L - Progress Progress: improved Progress Note: 06/23/18 10:23 This is a 82-year-old white male with history of COPD, bronchitis, hernia, osteoarthritis, heart murmur, rheumatic fever He arrives with complaint of 2 days of lower abdominal pain described as crampy he states he's been having multiple episodes of vomiting he had lab work yesterday from his family doctor CBC appears to be normal with a white count of 9.3 hemoglobin 13.7 hematocrit 41.1 platelets 233 Patient's chemistry yesterday sodium 131 potassium 4.1 chloride 92 bicarbonate 31 BUN 12 creatinine 0.63 glucose 108 Patient also had a CT of the abdomen done yesterday impression 1. Mild uniformly fluid distended small bowel loops with synchronous fluid leveling. Ileus versus enteritis. Small pelvic free fluid present reactive. No walled off fluid collection or free air. 2. New small hiatal hernia. 3. Stable chronic findings including right renal cyst, urinary bladder wall thickening, enlarged prostate gland, sigmoid diverticulosis, and evidence for old granulomatous disease. Patient today states he continues to have lower abdominal pain and vomiting he states he thinks he has a bowel obstruction. Will go ahead and obtain three-view abdomen, CBC CMP amylase lipase and urine. Will give patient careful fluids with normal saline 100 mL per hour and Phenergan which should help his pain in his nausea and vomiting. 06/23/18 11:28 Patient's acute abdomen series: Impression: 1. Negative abdomen 2. New interstitial alveolar opacities left greater than right. Patient is on Cefdinir which he started yesterday apparently vomited the first dose. He had just come off of a 5 day Cipro course 06/23/18 11:55 I am still waiting on a urine from this patient. I have discussed case with Dr. Yeager. Will go ahead and place patient on observation go ahead and begin Levaquin IV,. Will go ahead and continue IV fluids. 06/23/18 12:19 I've discussed the case with Dr. Lee he feels that patient needs to be were specialist care can be available for this patient. Patient has an ileus, leukocytosis he needs to be worse urging and be he also needs to be where his policy officer is available in addition his family Dr. Dr. Yeager will be available at [facility] as well. Call has been placed to [facility] one call. Levaquin 750 mg has been ordered patient is receiving IV normal saline at 100 mL per hour he is feeling better after receiving Phenergan 12.5 mg IV. Impression: 1. Lower abdominal pain 2. Vomiting 3. Ileus 4. Pneumonia. 5. Leukocytosis6. vomiting 06/23/18 12:46 Patient has been accepted to [facility] Will arrange transfer. - Departure Time of Disposition: 12:47 Departure Disposition: Transfer (Formerly [facility] Dr Georgina Yeager) Clinical Impression: Pneumonia, Ileus Abdominal pain Qualifiers: Abdominal location: lower abdomen, unspecified Qualified Code(s): R10.30 - Lower abdominal pain, unspecified Leukocytosis Qualifiers: Leukocytosis type: other Qualified Code(s): D72.828 - Other elevated white blood cell count Vomiting Qualifiers: Vomiting type: unspecified Vomiting Intractability: unspecified Nausea presence : with nausea Qualified Code(s): R11.2 - Nausea with vomiting, unspecified Condition: Fair Critical Care Time: No Referrals: JESUS ALBERTO YEAGER [Primary Care Provider] -
[2018-06-23] MEDS ORDERED: Sodium Chloride 0.9% 1000 ML 1,000 ML IV SCH (10:30)
[2018-06-23] MEDS ORDERED: Phenergan 25 MG INJ ONE (10:31)
[2018-06-23] MEDS ORDERED: Sodium Chloride 0.9% 1000 ML 1,000 ML ONE (10:32)
[2018-06-23 10:54] LABS: BASOPHIL % 0.1 % (0.0-0.4); Basophil (Absolute #) 0.02 (0-0.4); Eosinophil % 0.4 % (0.00-5.0); Eosinophil (Absolute #) 0.09 (0-0.5); Granulocyte Absolute (ANC) 17.76 (1.4-6.9); Granulocytes % 88.5 % (36.0-66.0); Hematocrit 43.2 % (42-50); Hemoglobin 14.7 gm/dl (12.5-18.0); Lymphocyte (Absolute #) 1.48 (1.0-4.6); Lymphocytes % 7.4 % (24.0-44.0); Mean Cell Volume 92.3 fl (78-100); Mean Corpuscular Hemoglobin 31.4 pg (26-32); Mean Platelet Volume 9.2 fl (6-9.5); Monocyte (Absolute #) 0.73 (0.0-1.3); Monocytes % 3.6 % (0.0-12.0); Platelet Count 262 K/mm3 (150-450); Red Blood Count 4.68 M/mm3 (4.1-5.6); Red Cell Distribution Width 12.8 % (11.5-14.0); White Blood Count 20.1 K/mm3 (4.0-10.5)
[2018-06-23 11:16] LABS: ALBUMIN 4.5 g/dL (3.5-5.0); ALKALINE PHOSPHATASE 61 U/L (38-126); AMYLASE 67 U/L (30-110); BLOOD UREA NITROGEN 11 mg/dL (9-20); CHLORIDE 92 mmol/L (98-107); Calcium 9.4 mg/dL (8.4-10.2); Carbon Dioxide 29 mmol/L (22-30); Creatinine 1 0.67 mg/dL (0.66-1.25); Glucose 137 mg/dL (74-106); LIPASE 64 U/L (23-300); Potassium 3.7 mmol/L (3.5-5.1); SGOT/AST 25 U/L (17-59); SGPT/ALT 17 U/L (0-50); SODIUM 132 mmol/L (137-145); Total Protein 7.4 g/dL (6.3-8.2)
--- NOTE | 2018-06-23 11:18 | XRAY ---
Indication: Abdomen pain. Ileus versus enteritis on CT abdomen/pelvis 1 day earlier. Comparison: Chest exam April 02, 2017. 2 views of the abdomen demonstrates nonspecific nonobstructed bowel gas pattern. No free air. Solid organs unremarkable. Osseous structures intact with mild osteopenia and degenerative changes. Single PA chest demonstrates new diffuse left lung and lesser degree right lung interstitial alveolar opacities without consolidation/effusion. Heart is not enlarged. Descending aorta remains tortuous. Bony thorax intact again with mild osteopenia and degenerative changes. Impression: 1. Negative abdomen. 2. New interstitial alveolar opacities, left lung greater than right.
[2018-06-23 11:28] VITALS: O2SAT 90
[2018-06-23] MEDS ORDERED: LEVOFLOXACIN 750MG/150ML D5W 750 MG/150 ML BAG IV STA (12:05)
[2018-06-23 12:49] VITALS: BP 142/92; PULSE 102
[2018-06-23] MEDS ORDERED: LEVOFLOXACIN 750MG/150ML D5W 750 MG/150 ML BAG IV ONE (13:03)
[2018-06-23 13:10] LABS: Appearance SLIGHTLY CLOUDY (CLEAR); Bilirubin NEGATIVE (NEGATIVE); Blood NEGATIVE Ery/ul (0-5); Glucose NEGATIVE (NEGATIVE); Ketones SMALL (NEGATIVE); Leukocyte Esterase NEGATIVE (NEGATIVE); Nitrite NEGATIVE (NEGATIVE); Protein,Urine Dip 30 (Negative); Specific Gravity 1.016 (1.005-1.025); Urobilinogen NEGATIVE mg/dL (0-1)
== END 2018-06-23 13:21 | disposition short-term general hospital (02) ==
LOC: ED 09:53
DX: K56.7 Ileus, unspecified (principal); J18.9 Pneumonia, unspecified organism; R11.2 Nausea with vomiting, unspecified; D72.829 Elevated white blood cell count, unspecified; Z79.899 Other long term (current) drug therapy; K44.9 Diaphragmatic hernia without obstruction or gangrene; K57.30 Diverticulosis of large intestine without perforation or abscess without bleeding
CPT/HCPCS: 36000; 36415; 74022; 80053; 81001; 82150; 83690; 85025; 87040; 96360; 96361; 96374; 99285; J1956; J2550

== ENCOUNTER 2018-12-02 16:04 | Emergency (ER) | payer MEDICARE, OTHER ==
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
[2018-12-02 16:22] VITALS: O2SAT 98
[2018-12-02 17:00] VITALS: BP 125/80; PULSE 64
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
== END 2018-12-02 17:00 | disposition home or self-care (01) ==
LOC: ED 16:04
DX: M62.838 Other muscle spasm (principal); M54.2 Cervicalgia; M54.6 Pain in thoracic spine; V89.0XXA Person injured in unspecified motor-vehicle accident, nontraffic, initial encounter; Y93.89 Activity, other specified; Y92.481 Parking lot as the place of occurrence of the external cause
CPT/HCPCS: 72040; 72072; 99283

== ENCOUNTER 2019-11-07 10:26 | Inpatient (IN) | payer MEDICARE, OTHER ==
--- NOTE | 2019-11-07 10:48 | ERPHSYRPT ---
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 Patient was recently diagnosed with left sided rib fracture and shingles. Patient was brought to the emergency department today because of dizziness, weakness and confusion that has been more significant in the last few days. She denies any kind at this time have chest pain he does not have abdominal pain he denies nausea vomiting or diarrhea. Patient denies head injury. Timing/Duration: day(s) (Last few days) Severity: moderate Associated Symptoms: weakness, No nausea, No vomiting, No abdominal pain, No shortness of breath, No chest pain, No fever, No loss of appetite Allergies/Adverse Reactions: morphine Allergy (Verified 12/02/18 16:22) unknown rx Home Medications: Aspirin 81 mg PO DAILY 04/12/14 [History] Atorvastatin Calcium [Lipitor] 10 mg PO QPM 04/12/14 [History] Lorazepam 0.5 mg [Ativan 0.5 MG] 0.5 mg PO HS 04/12/14 [History] Multivitamin [Multi Vitamin Daily] 1 each PO DAILY 04/12/14 [History] Rabeprazole Sodium [Aciphex] 20 mg PO DAILY 04/12/14 [History] Naproxen 375 mg [Naprosyn 375 mg] 550 mg PO Q12H PRN PRN 06/23/18 [History ] Diclofenac Sodium [Diclofenac Sodium ER] 1 tab PO DAILY 11/07/19 [History] Fluticasone/Vilanterol [Breo Ellipta 100-25 Mcg INH] 1 puff IH DAILY 11/07/19 [ History] Ipratropium/Albuterol Sulfate [Combivent Inhaler] 1 puff IH TID 11/07/19 [ History] Pep-3/Dha/Epa/Fish Oil [Pep 3 500 Softgel] 1 cap PO DAILY 11/07/19 [History] Tamsulosin HCl 0.4 mg [Flomax 0.4 MG] 1 cap PO HS 11/07/19 [History] Vit B Comp/C/Folic/Iron/Vit E [Vitamin B Complex Tablet] 0.5 tab PO DAILY [History] Hx Tetanus, Diphtheria Vaccination/Date Given: Yes Hx Influenza Vaccination/Date Given: Yes Hx Pneumococcal Vaccination/Date Given: Yes Travel Risk - International Travel Have you traveled outside of the country in past 3 weeks: No Have you or anyone close to you been diagnosed with or: No Do your reside in a community with a known COVID-19 case?: Yes If Yes where:: [facility] - Coronavirus Screening Has patient experienced Coronavirus symptoms: Yes Symptoms experienced: weakness - Review of Systems Constitutional: Weakness Eyes: No Symptoms Ears, Nose, & Throat: No Symptoms Respiratory: No Symptoms Cardiac: No Symptoms Abdominal/Gastrointestinal: No Symptoms Genitourinary Symptoms: No Symptoms Musculoskeletal: No Symptoms Skin: No Symptoms Neurological: Other (Generalized weakness) Psychological: No Symptoms Endocrine: No Symptoms Hematologic/Lymphatic: No Symptoms Immunological/Allergic: No Symptoms All Other Systems: Reviewed and Negative - Past Medical History Pertinent Past Medical History: Yes Neurological History: No Pertinent History ENT History: No Pertinent History Cardiac History: No Pertinent History, Other Respiratory History: Bronchitis, COPD, Other Endocrine Medical History: No Pertinent History Musculoskeletal History: Osteoarthritis, Other GI Medical History: Hernia History: No Pertinent History Psycho-Social History: No Pertinent History Male Reproductive Disorders: No Pertinent History Other Medical History: heart murmur, Rheumatic fever - Past Surgical History Past Surgical History: Yes Neuro Surgical History: No Pertinent History Cardiac: No Pertinent History Respiratory: Other Gastrointestinal: Hernia Repair Genitourinary: No Pertinent History Musculoskeletal: No Pertinent History Male Surgical History: Prostate Surgery, Testicular Surgery Other Surgical History: sinus surgery - Social History Smoking Status: Never smoker How long have you smoked: 4 years Exposure to second hand smoke: No Drug Use: none Patient Lives Alone: No - Nursing Vital Signs Nursing Vital Signs: Initial Vital Signs Temperature 98.6 F 11/07/19 10:27 Pulse Rate 83 11/07/19 10:27 Respiratory Rate 16 11/07/19 10:27 Blood Pressure 157/88 11/07/19 10:27 O2 Sat by Pulse Oximetry 97 11/07/19 10:27 Pain Scale Pain Intensity 2 - Physical Exam General Appearance: no apparent distress, alert, other (Weakness) Eye Exam: PERRL/EOMI, eyes nml inspection Ears, Nose, Throat Exam: normal ENT inspection, moist mucous membranes Neck Exam: normal inspection, non-tender, supple, full range of motion Respiratory Exam: normal breath sounds, lungs clear, airway intact, No chest tenderness, No respiratory distress, No accessory muscle use Cardiovascular Exam: regular rate/rhythm, normal heart sounds, normal peripheral pulses Gastrointestinal/Abdomen Exam: soft, normal bowel sounds, No tenderness Rectal Exam: not done Back Exam: normal inspection, normal range of motion, No CVA tenderness, No vertebral tenderness Extremity Exam: normal inspection, normal range of motion, pelvis stable Neurologic Exam: alert, oriented x 3, cooperative, 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 No acute ischemic changes) Ordered Tests: Active Orders 24 hr Category Date Time Status Cath for Residual-In & Out STAT Care 11/07/19 10:52 Active Clean Catch Urine Specimen STAT Care 11/07/19 10:51 Active EKG-ER Only STAT Care 11/07/19 10:51 Active IV Insertion STAT Care 11/07/19 10:51 Active Pulse Oximetry (ED) STAT Care 11/07/19 10:51 Active HEAD WITHOUT CONTRAST [CT] Stat Exams 11/07/19 11:06 Completed BNP [NT PRO BNP] Stat Lab 11/07/19 10:50 Completed CBC W DIFF Stat Lab 11/07/19 10:50 Completed CMP Stat Lab 11/07/19 10:50 Completed CULTURE,URINE Stat Lab 11/07/19 10:54 Received CULTURE,URINE Stat Lab 11/07/19 10:56 Ordered PROTIME WITH INR Stat Lab 11/07/19 10:50 Completed Sodium, Urine Stat Lab 11/07/19 11:32 Ordered TROPONIN Q3H Lab 11/07/19 10:50 Completed TROPONIN Q3H Lab 11/07/19 14:00 Ordered TROPONIN Q3H Lab 11/07/19 17:00 Ordered TROPONIN Q3H Lab 11/07/19 20:00 Ordered TROPONIN Q3H Lab 11/07/19 23:00 Ordered UA W/RFX UR CULTURE Stat Lab 11/07/19 10:54 Completed Urine Triage Profile Stat Lab 11/07/19 10:54 Completed Transfer Order Routine Transfer 11/07/19 Ordered Medication Summary Discontinued Medications Generic Name Dose Route Start Last Admin Trade Name Teet[place] PRN Reason Stop Dose Admin Sodium Chloride 1,000 mls @ 999 mls/hr 11/07/19 10:51 11/07/19 11:13 Sodium Chloride 0.9% 1000 Ml IV 11/07/19 11:51 999 mls/hr .Q1H1M STA Administration Sodium Chloride Confirm 11/07/19 11:12 Sodium Chloride 0.9% 1000 Ml Administered 11/07/19 11:13 Dose 1,000 mls @ ud .ROUTE .STK-MED ONE Lab/Rad Data: Laboratory Result Diagrams 11/07/19 10:50 11/07/19 10:50 Laboratory Results 11/07/19 11/07/19 11/07/19 Range/Units 10:54 10:54 10:50 WBC (4.0-10.5) K/mm3 RBC (4.1-5.6) M/mm3 Hgb (12.5-18.0) gm/dl Hct (42-50) % MCV (78-100) fl MCH (26-32) pg MCHC (32-36) g/dl RDW (11.5-14.0) % Plt Count (150-450) K/mm3 MPV (7.5-11.0) fl Gran % (36.0-66.0) % Eos # (Auto) (0-0.5) Absolute Lymphs (auto) (1.0-4.6) Absolute Monos (auto) (0.0-1.3) Lymphocytes % (24.0-44.0) % Monocytes % (0.0-12.0) % Eosinophils % (0.00-5.0) % Basophils % (0.0-0.4) % Absolute Granulocytes (1.4-6.9) Basophils # (0-0.4) PT (8.83-12.87) SECONDS INR (0.8-3.0) Sodium (137-145) mmol/L Potassium (3.5-5.1) mmol/L Chloride (98-107) mmol/L Carbon Dioxide (22-30) mmol/L Anion Gap (5-15) MEQ/L BUN (9-20) mg/dL Creatinine (0.66-1.25) mg/dL Estimated GFR ML/MIN Glucose (74-106) mg/dL Calcium (8.4-10.2) mg/dL Total Bilirubin (0.2-1.3) mg/dL AST (17-59) U/L ALT (0-50) U/L Alkaline Phosphatase (38-126) U/L Troponin I < 0.012 (0.000-0.034) ng/mL NT-Pro-B Natriuret Pep (0-1800) pg/mL Serum Total Protein (6.3-8.2) g/dL Albumin (3.5-5.0) g/dL Urine Color YELLOW (YELLOW) Urine Appearance CLEAR (CLEAR) Urine pH 6.0 (5-6) Ur Specific [place] 1.004 (1.005-1.025) Urine Protein 30 (Negative) Urine Ketones NEGATIVE (NEGATIVE) Urine Blood LARGE (0-5) Tino/ul Urine Nitrite NEGATIVE (NEGATIVE) Urine Bilirubin NEGATIVE (NEGATIVE) Urine Urobilinogen NEGATIVE (0-1) mg/dL Ur Leukocyte Esterase NEGATIVE (NEGATIVE) Urine WBC (Auto) 6-10 (0-5) /HPF Urine RBC (Auto) 51-100 (0-2) /HPF U Epithel Cells (Auto) NONE (FEW) /HPF Urine Bacteria (Auto) NONE SEEN (NEGATIVE) /HPF Unidentified Crystals 2-5 (NEGATIVE) /HPF Urine Mucus (Auto) SLIGHT (NEGATIVE) /HPF Urine Culture Reflexed YES (NO) Urine Glucose NEGATIVE (NEGATIVE) mg/dL Urine Opiates Level POSITIVE (NEGATIVE) Ur Methadone NEGATIVE (NEGATIVE) Urine Barbiturates NEGATIVE (NEGATIVE) Ur Phencyclidine (PCP) NEGATIVE (NEGATIVE) Urine Amphetamine NEGATIVE (NEGATIVE) U Benzodiazepine Level NEGATIVE (NEGATIVE) Urine Cocaine NEGATIVE (NEGATIVE) Urine Marijuana (THC) NEGATIVE (NEGATIVE) 11/07/19 11/07/19 11/07/19 Range/Units 10:50 10:50 10:50 WBC (4.0-10.5) K/mm3 RBC (4.1-5.6) M/mm3 Hgb (12.5-18.0) gm/dl Hct (42-50) % MCV (78-100) fl MCH (26-32) pg MCHC (32-36) g/dl RDW (11.5-14.0) % Plt Count (150-450) K/mm3 MPV (7.5-11.0) fl Gran % (36.0-66.0) % Eos # (Auto) (0-0.5) Absolute Lymphs (auto) (1.0-4.6) Absolute Monos (auto) (0.0-1.3) Lymphocytes % (24.0-44.0) % Monocytes % (0.0-12.0) % Eosinophils % (0.00-5.0) % Basophils % (0.0-0.4) % Absolute Granulocytes (1.4-6.9) Basophils # (0-0.4) PT 12.8 (8.83-12.87) SECONDS INR 1.13 (0.8-3.0) Sodium 120 L* (137-145) mmol/L Potassium 5.4 H (3.5-5.1) mmol/L Chloride 89 L (98-107) mmol/L Carbon Dioxide 20 L (22-30) mmol/L Anion Gap 16.7 H (5-15) MEQ/L BUN 37 H (9-20) mg/dL Creatinine 3.35 H (0.66-1.25) mg/dL Estimated GFR 18.7 ML/MIN Glucose 131 H (74-106) mg/dL Calcium 8.3 L (8.4-10.2) mg/dL Total Bilirubin 1.00 (0.2-1.3) mg/dL AST 39 (17-59) U/L ALT 20 (0-50) U/L Alkaline Phosphatase 80 (38-126) U/L Troponin I (0.000-0.034) ng/mL NT-Pro-B Natriuret Pep 1200 (0-1800) pg/mL Serum Total Protein 6.7 (6.3-8.2) g/dL Albumin 3.5 (3.5-5.0) g/dL Urine Color (YELLOW) Urine Appearance (CLEAR) Urine pH (5-6) Ur Specific [place] (1.005-1.025) Urine Protein (Negative) Urine Ketones (NEGATIVE) Urine Blood (0-5) Tino/ul Urine Nitrite (NEGATIVE) Urine Bilirubin (NEGATIVE) Urine Urobilinogen (0-1) mg/dL Ur Leukocyte Esterase (NEGATIVE) Urine WBC (Auto) (0-5) /HPF Urine RBC (Auto) (0-2) /HPF U Epithel Cells (Auto) (FEW) /HPF Urine Bacteria (Auto) (NEGATIVE) /HPF Unidentified Crystals (NEGATIVE) /HPF Urine Mucus (Auto) (NEGATIVE) /HPF Urine Culture Reflexed (NO) Urine Glucose (NEGATIVE) mg/dL Urine Opiates Level (NEGATIVE) Ur Methadone (NEGATIVE) Urine Barbiturates (NEGATIVE) Ur Phencyclidine (PCP) (NEGATIVE) Urine Amphetamine (NEGATIVE) U Benzodiazepine Level (NEGATIVE) Urine Cocaine (NEGATIVE) Urine Marijuana (THC) (NEGATIVE) 11/07/19 Range/Units 10:50 WBC 9.3 (4.0-10.5) K/mm3 RBC 4.34 (4.1-5.6) M/mm3 Hgb 13.0 (12.5-18.0) gm/dl Hct 36.8 L (42-50) % MCV 84.8 (78-100) fl MCH 30.0 (26-32) pg MCHC 35.3 (32-36) g/dl RDW 13.2 (11.5-14.0) % Plt Count 168 (150-450) K/mm3 MPV 8.6 (7.5-11.0) fl Gran % 76.0 H (36.0-66.0) % Eos # (Auto) 0.07 (0-0.5) Absolute Lymphs (auto) 1.06 (1.0-4.6) Absolute Monos (auto) 1.09 (0.0-1.3) Lymphocytes % 11.4 L (24.0-44.0) % Monocytes % 11.7 (0.0-12.0) % Eosinophils % 0.8 (0.00-5.0) % Basophils % 0.1 (0.0-0.4) % Absolute Granulocytes 7.07 H (1.4-6.9) Basophils # 0.01 (0-0.4) PT (8.83-12.87) SECONDS INR (0.8-3.0) Sodium (137-145) mmol/L Potassium (3.5-5.1) mmol/L Chloride (98-107) mmol/L Carbon Dioxide (22-30) mmol/L Anion Gap (5-15) MEQ/L BUN (9-20) mg/dL Creatinine (0.66-1.25) mg/dL Estimated GFR ML/MIN Glucose (74-106) mg/dL Calcium (8.4-10.2) mg/dL Total Bilirubin (0.2-1.3) mg/dL AST (17-59) U/L ALT (0-50) U/L Alkaline Phosphatase (38-126) U/L Troponin I (0.000-0.034) ng/mL NT-Pro-B Natriuret Pep (0-1800) pg/mL Serum Total Protein (6.3-8.2) g/dL Albumin (3.5-5.0) g/dL Urine Color (YELLOW) Urine Appearance (CLEAR) Urine pH (5-6) Ur Specific [place] (1.005-1.025) Urine Protein (Negative) Urine Ketones (NEGATIVE) Urine Blood (0-5) Tino/ul Urine Nitrite (NEGATIVE) Urine Bilirubin (NEGATIVE) Urine Urobilinogen (0-1) mg/dL Ur Leukocyte Esterase (NEGATIVE) Urine WBC (Auto) (0-5) /HPF Urine RBC (Auto) (0-2) /HPF U Epithel Cells (Auto) (FEW) /HPF Urine Bacteria (Auto) (NEGATIVE) /HPF Unidentified Crystals (NEGATIVE) /HPF Urine Mucus (Auto) (NEGATIVE) /HPF Urine Culture Reflexed (NO) Urine Glucose (NEGATIVE) mg/dL Urine Opiates Level (NEGATIVE) Ur Methadone (NEGATIVE) Urine Barbiturates (NEGATIVE) Ur Phencyclidine (PCP) (NEGATIVE) Urine Amphetamine (NEGATIVE) U Benzodiazepine Level (NEGATIVE) Urine Cocaine (NEGATIVE) Urine Marijuana (THC) (NEGATIVE) - Progress Progress Note: 11/07/19 11:43 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 Martinez. Patient is to be admitted into the hospital. Discussed with : Brisa Counseled pt/family regarding: lab results, diagnosis, rad results - Departure Departure Disposition: In-patient Admission Clinical Impression: Hyponatremia, Dehydration, Shingles Condition: Stable Critical Care Time: No Referrals: JESUS ALBERTO YEAGER [Primary Care Provider] -
[2019-11-07] MEDS ORDERED: Sodium Chloride 0.9% 1000 ML 1,000 ML IV STA (10:51)
[2019-11-07 11:08] LABS: Absolute Neutrophil Ct (ANC) 7.07 (1.4-6.9); BASOPHIL % 0.1 % (0.0-0.4); Basophil (Absolute #) 0.01 (0-0.4); Eosinophil % 0.8 % (0.00-5.0); Eosinophil (Absolute #) 0.07 (0-0.5); Hematocrit 36.8 % (42-50); Lymphocyte (Absolute #) 1.06 (1.0-4.6); Lymphocytes % 11.4 % (24.0-44.0); Mean Cell Volume 84.8 fl (78-100); Mean Corpuscular Hgb Concent. 35.3 g/dl (32-36); Mean Platelet Volume 8.6 fl (7.5-11.0); Monocyte (Absolute #) 1.09 (0.0-1.3); Monocytes % 11.7 % (0.0-12.0); Platelet Count 168 K/mm3 (150-450); Red Blood Count 4.34 M/mm3 (4.1-5.6); Red Cell Distribution Width 13.2 % (11.5-14.0); White Blood Count 9.3 K/mm3 (4.0-10.5)
[2019-11-07 11:12] LABS: INR 1.13 (0.8-3.0); PROTIME 12.8 SECONDS (8.83-12.87)
[2019-11-07] MEDS ORDERED: Sodium Chloride 0.9% 1000 ML 1,000 ML ONE (11:12)
[2019-11-07 11:18] LABS: ALBUMIN 3.5 g/dL (3.5-5.0); ANION GAP 16.7 MEQ/L (5-15); Calcium 8.3 mg/dL (8.4-10.2); Creatinine 1 3.35 mg/dL (0.66-1.25); Potassium 5.4 mmol/L (3.5-5.1); Total Protein 6.7 g/dL (6.3-8.2)
[2019-11-07 11:19] LABS: Appearance CLEAR (CLEAR); Bilirubin NEGATIVE (NEGATIVE); Blood LARGE Ery/ul (0-5); Glucose NEGATIVE (NEGATIVE); Ketones NEGATIVE (NEGATIVE); Leukocyte Esterase NEGATIVE (NEGATIVE); Mucus SLIGHT /HPF (NEGATIVE); Nitrite NEGATIVE (NEGATIVE); Protein,Urine Dip 30 (Negative); RBC 51-100 /HPF (0-2); Specific Gravity 1.004 (1.005-1.025); Urobilinogen NEGATIVE mg/dL (0-1)
[2019-11-07 11:28] LABS: Amphetamine,Urine NEGATIVE (NEGATIVE); Bacteria NONE SEEN /HPF (NEGATIVE); Barbiturate,Urine NEGATIVE (NEGATIVE); Benzodiazepine,Urine NEGATIVE (NEGATIVE); Cocaine,Urine NEGATIVE (NEGATIVE); Methadone,Urine NEGATIVE (NEGATIVE); Opiate,Urine POSITIVE (NEGATIVE); PCP,Urine NEGATIVE (NEGATIVE); THC,Urine NEGATIVE (NEGATIVE)
--- NOTE | 2019-11-07 11:33 | XRAY ---
Indication: Confusion. Frequent falls. Multiple contiguous axial images obtained through the head without contrast. Comparison: December 01, 2013. Again global atrophy and mild periventricular degenerative micro-ischemia bilaterally within normal limits for patient's age. No acute intracranial hemorrhage, abnormal extra-axial fluid collection, or mass effect. Fourth ventricle is midline without hydrocephalus. Bony calvarium intact. Visualized paranasal sinuses and mastoid air cells are clear. Impression: Continued nonacute senile brain.
[2019-11-07] MEDS ORDERED: Zofran 4 MG/2 ML VIAL IV PRN (13:28)
[2019-11-07] MEDS: Sodium Chloride 0.9% 1000 ML 1,000 ML IV SCH (14:59)
[2019-11-07] MEDS ORDERED: Catapres 0.1 MG PO PRN (16:33)
[2019-11-07 16:43] LABS: ANION GAP 15.5 MEQ/L (5-15); Calcium 7.8 mg/dL (8.4-10.2); Creatinine 1 3.32 mg/dL (0.66-1.25); Potassium 5.3 mmol/L (3.5-5.1)
--- NOTE | 2019-11-07 17:04 | XRAY ---
Indication: Cough. Dehydration. Comparison: April 02, 2017. Portable chest again demonstrates COPD with chronic lung markings. No focal infiltrate, consolidation, or large effusion. Heart and mediastinal structures within normal limits. Bony thorax intact again with mild osteopenia and degenerative changes. Impression: Continued nonacute chest with chronic features.
[2019-11-07] MEDS ORDERED: Combivent Inhaler COMMON CANISTER IH SCH (19:00)
[2019-11-07] MEDS: PATIENT OWN MEDICATION IH SCH ×2 (19:38)
[2019-11-07] MEDS: Ativan 0.5 MG PO SCH (21:05)
[2019-11-07] MEDS: Flomax 0.4 MG PO SCH (21:05)
[2019-11-07] MEDS: Zocor 10MG PO SCH (21:05)
[2019-11-07] MEDS: ZOVIRAX 800 MG PO SCH ×2 (21:05→23:55)
[2019-11-07] MEDS ORDERED: PATIENT OWN MEDICATION IH SCH (22:00)
[2019-11-07] MEDS ORDERED: VALACYCLOVIR HCL 1000 MG PO SCH (22:00)
[2019-11-07] MEDS ORDERED: NON-FORMULARY ITEM (Atorvastatin Calcium [Lipitor] 10 MG) PO SCH (22:00)
[2019-11-07] MEDS: TYLENOL 325 MG PO PRN (22:40)
[2019-11-07] MEDS: ANUSOL-HC 2.5% CREAM 30 GM TP SCH (23:55)
[2019-11-08] MEDS: Sodium Chloride 0.9% 1000 ML 1,000 ML IV SCH ×2 (04:52→09:31)
[2019-11-08 04:57] LABS: Absolute Neutrophil Ct (ANC) 5.04 (1.4-6.9); BASOPHIL % 0.1 % (0.0-0.4); Basophil (Absolute #) 0.01 (0-0.4); Eosinophil % 1.9 % (0.00-5.0); Eosinophil (Absolute #) 0.14 (0-0.5); Hematocrit 35.1 % (42-50); Hemoglobin 12.1 gm/dl (12.5-18.0); Lymphocyte (Absolute #) 1.35 (1.0-4.6); Lymphocytes % 18.2 % (24.0-44.0); Mean Cell Volume 86.5 fl (78-100); Mean Corpuscular Hemoglobin 29.8 pg (26-32); Mean Corpuscular Hgb Concent. 34.5 g/dl (32-36); Mean Platelet Volume 8.6 fl (7.5-11.0); Monocyte (Absolute #) 0.88 (0.0-1.3); Monocytes % 11.9 % (0.0-12.0); Neutrophil % 67.9 % (36.0-66.0); Platelet Count 180 K/mm3 (150-450); Red Blood Count 4.06 M/mm3 (4.1-5.6); Red Cell Distribution Width 13.3 % (11.5-14.0); White Blood Count 7.4 K/mm3 (4.0-10.5)
[2019-11-08 05:06] LABS: ALBUMIN 3.1 g/dL (3.5-5.0); ANION GAP 14.9 MEQ/L (5-15); BILIRUBIN,TOTAL 0.9 mg/dL (0.2-1.3); Creatinine 1 3.03 mg/dL (0.66-1.25)
[2019-11-08] MEDS: ZOVIRAX 800 MG PO SCH ×4 (06:13→20:35)
[2019-11-08] MEDS: PATIENT OWN MEDICATION IH SCH ×4 (07:12→19:55)
[2019-11-08] MEDS: ANUSOL-HC 2.5% CREAM 30 GM TP SCH ×2 (07:56→21:20)
--- NOTE | 2019-11-08 09:20 | PCM.HP ---
History of Present Illness - Chief Complaint Chief Complaint: hyponatremia, dehydration, confusion History of Present Illness: is a 84 year old male pt of Dr. Georgina Daly who was admitted through ER with hyponatremia and acute renal failure. He c/o weakness, confusion, and dizziness for about 1 week. Pt states he was dehydrated. Na in ER was 120. His BUN/Cr were 37/3.35 - (in May 2019 were 16/0.67). UA neg. WBC nl. AST/ALT wnl. He did have some elevated BP on admission so prn clonidine was ordered. This morning he says "I feel good," does seem somewhat confused at times, but is oriented to place, not quite to time (says is November 09). Has been up to bathroom. Urinating well. BUN/Cr today 36/3.03. - Review of Systems Constitutional: Weakness Skin: Other (shingles rash on L abd/chest) All Other Systems: Unable due to condition (Pt without complaints butw ith some confusion) Medications & Allergies Home Medications: Home Medication List Aspirin 81 mg PO DAILY 04/12/14 [History Confirmed 11/07/19] Atorvastatin Calcium [Lipitor] 10 mg PO QPM 04/12/14 [History Confirmed 11/07/19 ] Lorazepam 0.5 mg [Ativan 0.5 MG] 0.5 mg PO HS 04/12/14 [History Confirmed 11/07/19] Multivitamin [Multi Vitamin Daily] 1 each PO DAILY 04/12/14 [History Confirmed 11/07/19] Rabeprazole Sodium [Aciphex] 20 mg PO DAILY 04/12/14 [History Confirmed 11/07/19 ] Naproxen 375 mg [Naprosyn 375 mg] 550 mg PO Q12H PRN PRN 06/23/18 [ History Confirmed 11/07/19] Diclofenac Sodium [Diclofenac Sodium ER] 1 tab PO DAILY 11/07/19 [History Confirmed 11/07/19] Fluticasone/Vilanterol [Breo Ellipta 100-25 Mcg INH] 1 puff IH DAILY 11/07/19 [ History Confirmed 11/07/19] Gabapentin 300 mg PO DAILY 11/07/19 [History Confirmed 11/07/19] Hydrocortisone/Pramoxine [Hydrocort-Pramoxine 2.5-1% Crm] 1 gm TOP BID 11/07/19 [History Confirmed 11/07/19] Ipratropium/Albuterol Sulfate [Combivent Inhaler] 1 puff IH TID 11/07/19 [ History Confirmed 11/07/19] [place]-3/Dha/Epa/Fish Oil [[place] 3 500 Softgel] 1 cap PO DAILY 11/07/19 [History Confirmed 11/07/19] Tamsulosin HCl 0.4 mg [Flomax 0.4 MG] 1 cap PO HS 11/07/19 [History Confirmed 11/07/19] Valacyclovir HCl [Valacyclovir] 1,000 mg PO TID 11/07/19 [History Confirmed ] Vit B Comp/C/Folic/Iron/Vit E [Vitamin B Complex Tablet] 0.5 tab PO DAILY [History Confirmed 11/07/19] Allergies/Adverse Reactions: Allergies Allergy/AdvReac Type Severity Reaction Status Date / Time morphine Allergy Verified 12/02/18 16:22 - Past Medical History Past Medical History: Yes Neurological History: No Pertinent History ENT History: No Pertinent History Cardiac History: No Pertinent History, Other Respiratory History: Bronchitis, COPD, Other Endocrine Medical History: No Pertinent History Musculoskelatal History: Osteoarthritis, Other GI Medical History: Hernia History: No Pertinent History Pyscho-Social History: No Pertinent History Male Reproductive Disorders: No Pertinent History Comment: heart murmur, Rheumatic fever - Past Surgical History Past Surgical History: Yes Neuro Surgical History: No Pertinent History Cardiac History: No Pertinent History Respiratory Surgery: Other GI Surgical History: Hernia Repair Genitourinary Surgical Hx: No Pertinent History Musculskeletal Surgical Hx: No Pertinent History Male Surgical History: Prostate Surgery, Testicular Surgery Other Surgical History: sinus surgery - Social History Smoking Status: Former smoker How long have you smoked: 4 years Exposure to second hand smoke: No Alcohol: Rarely Drug Use: none - Physical Exam Vital Signs: Vital Signs - 24 hr Temp Pulse Resp BP Pulse Ox 11/08/19 07:55 96.6 F 78 17 129/87 96 11/08/19 07:17 76 18 96 11/08/19 03:35 98.3 F 74 20 137/68 94 L 11/07/19 23:27 98.4 F 71 18 143/74 96 11/07/19 19:38 76 20 97 11/07/19 19:36 97.8 F 77 20 160/82 96 11/07/19 17:57 76 16 97 11/07/19 16:00 76 16 160/92 97 11/07/19 13:31 96.6 F 86 20 183/92 97 11/07/19 12:55 78 18 171/96 97 11/07/19 11:50 78 18 171/96 96 11/07/19 11:17 80 16 140/96 97 11/07/19 10:54 97 11/07/19 10:27 98.6 F 83 16 157/88 97 General Appearance: no apparent distress, alert Neurologic Exam: cooperative, disoriented Eye Exam: eyes nml inspection Ears, Nose, Throat Exam: moist mucous membranes Neck Exam: normal inspection, non-tender, No lymphadenopathy Respiratory Exam: normal breath sounds, lungs clear, No crackles/rales, No rhonchi, No wheezing Cardiovascular Exam: regular rate/rhythm, normal heart sounds, No murmur Gastrointestinal/Abdomen Exam: soft, normal bowel sounds, No tenderness, No distention, No mass, No guarding, No rebound Back Exam: normal inspection, No rash Extremity Exam: No pedal edema, No swelling Skin Exam: normal color, warm, dry, No rash Results - Labs Lab/Micro Results: Lab Results-Last 24 Hours 11/07/19 11/07/19 11/07/19 Range/Units 10:50 10:50 10:50 WBC 9.3 (4.0-10.5) K/mm3 RBC 4.34 (4.1-5.6) M/mm3 Hgb 13.0 (12.5-18.0) gm/dl Hct 36.8 L (42-50) % MCV 84.8 (78-100) fl MCH 30.0 (26-32) pg MCHC 35.3 (32-36) g/dl RDW 13.2 (11.5-14.0) % Plt Count 168 (150-450) K/mm3 MPV 8.6 (7.5-11.0) fl Gran % 76.0 H (36.0-66.0) % Eos # (Auto) 0.07 (0-0.5) Absolute Lymphs (auto) 1.06 (1.0-4.6) Absolute Monos (auto) 1.09 (0.0-1.3) Lymphocytes % 11.4 L (24.0-44.0) % Monocytes % 11.7 (0.0-12.0) % Eosinophils % 0.8 (0.00-5.0) % Basophils % 0.1 (0.0-0.4) % Absolute Granulocytes 7.07 H (1.4-6.9) Basophils # 0.01 (0-0.4) PT 12.8 (8.83-12.87) SECONDS INR 1.13 (0.8-3.0) Sodium 120 L* (137-145) mmol/L Potassium 5.4 H (3.5-5.1) mmol/L Chloride 89 L (98-107) mmol/L Carbon Dioxide 20 L (22-30) mmol/L Anion Gap 16.7 H (5-15) MEQ/L BUN 37 H (9-20) mg/dL Creatinine 3.35 H (0.66-1.25) mg/dL Estimated GFR 18.7 ML/MIN Glucose 131 H (74-106) mg/dL Calcium 8.3 L (8.4-10.2) mg/dL Total Bilirubin 1.00 (0.2-1.3) mg/dL AST 39 (17-59) U/L ALT 20 (0-50) U/L Alkaline Phosphatase 80 (38-126) U/L Troponin I (0.000-0.034) ng/mL NT-Pro-B Natriuret Pep (0-1800) pg/mL Serum Total Protein 6.7 (6.3-8.2) g/dL Albumin 3.5 (3.5-5.0) g/dL Urine Color (YELLOW) Urine Appearance (CLEAR) Urine pH (5-6) Ur Specific [place] (1.005-1.025) Urine Protein (Negative) Urine Ketones (NEGATIVE) Urine Blood (0-5) Tino/ul Urine Nitrite (NEGATIVE) Urine Bilirubin (NEGATIVE) Urine Urobilinogen (0-1) mg/dL Ur Leukocyte Esterase (NEGATIVE) Urine WBC (Auto) (0-5) /HPF Urine RBC (Auto) (0-2) /HPF U Epithel Cells (Auto) (FEW) /HPF Urine Bacteria (Auto) (NEGATIVE) /HPF Unidentified Crystals (NEGATIVE) /HPF Urine Mucus (Auto) (NEGATIVE) /HPF Urine Culture Reflexed (NO) Urine Sodium (30-90) mmol/L Urine Glucose (NEGATIVE) mg/dL Urine Opiates Level (NEGATIVE) Ur Methadone (NEGATIVE) Urine Barbiturates (NEGATIVE) Ur Phencyclidine (PCP) (NEGATIVE) Urine Amphetamine (NEGATIVE) U Benzodiazepine Level (NEGATIVE) Urine Cocaine (NEGATIVE) Urine Marijuana (THC) (NEGATIVE) 11/07/19 11/07/19 11/07/19 Range/Units 10:50 10:50 10:54 WBC (4.0-10.5) K/mm3 RBC (4.1-5.6) M/mm3 Hgb (12.5-18.0) gm/dl Hct (42-50) % MCV (78-100) fl MCH (26-32) pg MCHC (32-36) g/dl RDW (11.5-14.0) % Plt Count (150-450) K/mm3 MPV (7.5-11.0) fl Gran % (36.0-66.0) % Eos # (Auto) (0-0.5) Absolute Lymphs (auto) (1.0-4.6) Absolute Monos (auto) (0.0-1.3) Lymphocytes % (24.0-44.0) % Monocytes % (0.0-12.0) % Eosinophils % (0.00-5.0) % Basophils % (0.0-0.4) % Absolute Granulocytes (1.4-6.9) Basophils # (0-0.4) PT (8.83-12.87) SECONDS INR (0.8-3.0) Sodium (137-145) mmol/L Potassium (3.5-5.1) mmol/L Chloride (98-107) mmol/L Carbon Dioxide (22-30) mmol/L Anion Gap (5-15) MEQ/L BUN (9-20) mg/dL Creatinine (0.66-1.25) mg/dL Estimated GFR ML/MIN Glucose (74-106) mg/dL Calcium (8.4-10.2) mg/dL Total Bilirubin (0.2-1.3) mg/dL AST (17-59) U/L ALT (0-50) U/L Alkaline Phosphatase (38-126) U/L Troponin I < 0.012 (0.000-0.034) ng/mL NT-Pro-B Natriuret Pep 1200 (0-1800) pg/mL Serum Total Protein (6.3-8.2) g/dL Albumin (3.5-5.0) g/dL Urine Color YELLOW (YELLOW) Urine Appearance CLEAR (CLEAR) Urine pH 6.0 (5-6) Ur Specific [place] 1.004 (1.005-1.025) Urine Protein 30 (Negative) Urine Ketones NEGATIVE (NEGATIVE) Urine Blood LARGE (0-5) Tino/ul Urine Nitrite NEGATIVE (NEGATIVE) Urine Bilirubin NEGATIVE (NEGATIVE) Urine Urobilinogen NEGATIVE (0-1) mg/dL Ur Leukocyte Esterase NEGATIVE (NEGATIVE) Urine WBC (Auto) 6-10 (0-5) /HPF Urine RBC (Auto) 51-100 (0-2) /HPF U Epithel Cells (Auto) NONE (FEW) /HPF Urine Bacteria (Auto) NONE SEEN (NEGATIVE) /HPF Unidentified Crystals 2-5 (NEGATIVE) /HPF Urine Mucus (Auto) SLIGHT (NEGATIVE) /HPF Urine Culture Reflexed YES (NO) Urine Sodium (30-90) mmol/L Urine Glucose NEGATIVE (NEGATIVE) mg/dL Urine Opiates Level (NEGATIVE) Ur Methadone (NEGATIVE) Urine Barbiturates (NEGATIVE) Ur Phencyclidine (PCP) (NEGATIVE) Urine Amphetamine (NEGATIVE) U Benzodiazepine Level (NEGATIVE) Urine Cocaine (NEGATIVE) Urine Marijuana (THC) (NEGATIVE) 11/07/19 11/07/19 11/07/19 Range/Units 10:54 11:32 14:15 WBC (4.0-10.5) K/mm3 RBC (4.1-5.6) M/mm3 Hgb (12.5-18.0) gm/dl Hct (42-50) % MCV (78-100) fl MCH (26-32) pg MCHC (32-36) g/dl RDW (11.5-14.0) % Plt Count (150-450) K/mm3 MPV (7.5-11.0) fl Gran % (36.0-66.0) % Eos # (Auto) (0-0.5) Absolute Lymphs (auto) (1.0-4.6) Absolute Monos (auto) (0.0-1.3) Lymphocytes % (24.0-44.0) % Monocytes % (0.0-12.0) % Eosinophils % (0.00-5.0) % Basophils % (0.0-0.4) % Absolute Granulocytes (1.4-6.9) Basophils # (0-0.4) PT (8.83-12.87) SECONDS INR (0.8-3.0) Sodium (137-145) mmol/L Potassium (3.5-5.1) mmol/L Chloride (98-107) mmol/L Carbon Dioxide (22-30) mmol/L Anion Gap (5-15) MEQ/L BUN (9-20) mg/dL Creatinine (0.66-1.25) mg/dL Estimated GFR ML/MIN Glucose (74-106) mg/dL Calcium (8.4-10.2) mg/dL Total Bilirubin (0.2-1.3) mg/dL AST (17-59) U/L ALT (0-50) U/L Alkaline Phosphatase (38-126) U/L Troponin I < 0.012 (0.000-0.034) ng/mL NT-Pro-B Natriuret Pep (0-1800) pg/mL Serum Total Protein (6.3-8.2) g/dL Albumin (3.5-5.0) g/dL Urine Color (YELLOW) Urine Appearance (CLEAR) Urine pH (5-6) Ur Specific [place] (1.005-1.025) Urine Protein (Negative) Urine Ketones (NEGATIVE) Urine Blood (0-5) Tino/ul Urine Nitrite (NEGATIVE) Urine Bilirubin (NEGATIVE) Urine Urobilinogen (0-1) mg/dL Ur Leukocyte Esterase (NEGATIVE) Urine WBC (Auto) (0-5) /HPF Urine RBC (Auto) (0-2) /HPF U Epithel Cells (Auto) (FEW) /HPF Urine Bacteria (Auto) (NEGATIVE) /HPF Unidentified Crystals (NEGATIVE) /HPF Urine Mucus (Auto) (NEGATIVE) /HPF Urine Culture Reflexed (NO) Urine Sodium 21 L (30-90) mmol/L Urine Glucose (NEGATIVE) mg/dL Urine Opiates Level POSITIVE (NEGATIVE) Ur Methadone NEGATIVE (NEGATIVE) Urine Barbiturates NEGATIVE (NEGATIVE) Ur Phencyclidine (PCP) NEGATIVE (NEGATIVE) Urine Amphetamine NEGATIVE (NEGATIVE) U Benzodiazepine Level NEGATIVE (NEGATIVE) Urine Cocaine NEGATIVE (NEGATIVE) Urine Marijuana (THC) NEGATIVE (NEGATIVE) 11/07/19 11/07/19 11/07/19 Range/Units 16:27 16:27 20:00 WBC (4.0-10.5) K/mm3 RBC (4.1-5.6) M/mm3 Hgb (12.5-18.0) gm/dl Hct (42-50) % MCV (78-100) fl MCH (26-32) pg MCHC (32-36) g/dl RDW (11.5-14.0) % Plt Count (150-450) K/mm3 MPV (7.5-11.0) fl Gran % (36.0-66.0) % Eos # (Auto) (0-0.5) Absolute Lymphs (auto) (1.0-4.6) Absolute Monos (auto) (0.0-1.3) Lymphocytes % (24.0-44.0) % Monocytes % (0.0-12.0) % Eosinophils % (0.00-5.0) % Basophils % (0.0-0.4) % Absolute Granulocytes (1.4-6.9) Basophils # (0-0.4) PT (8.83-12.87) SECONDS INR (0.8-3.0) Sodium 122 L (137-145) mmol/L Potassium 5.3 H (3.5-5.1) mmol/L Chloride 90 L (98-107) mmol/L Carbon Dioxide 22 (22-30) mmol/L Anion Gap 15.5 H (5-15) MEQ/L BUN 37 H (9-20) mg/dL Creatinine 3.32 H (0.66-1.25) mg/dL Estimated GFR 18.9 ML/MIN Glucose 114 H (74-106) mg/dL Calcium 7.8 L (8.4-10.2) mg/dL Total Bilirubin (0.2-1.3) mg/dL AST (17-59) U/L ALT (0-50) U/L Alkaline Phosphatase (38-126) U/L Troponin I < 0.012 < 0.012 (0.000-0.034) ng/mL NT-Pro-B Natriuret Pep (0-1800) pg/mL Serum Total Protein (6.3-8.2) g/dL Albumin (3.5-5.0) g/dL Urine Color (YELLOW) Urine Appearance (CLEAR) Urine pH (5-6) Ur Specific [place] (1.005-1.025) Urine Protein (Negative) Urine Ketones (NEGATIVE) Urine Blood (0-5) Tino/ul Urine Nitrite (NEGATIVE) Urine Bilirubin (NEGATIVE) Urine Urobilinogen (0-1) mg/dL Ur Leukocyte Esterase (NEGATIVE) Urine WBC (Auto) (0-5) /HPF Urine RBC (Auto) (0-2) /HPF U Epithel Cells (Auto) (FEW) /HPF Urine Bacteria (Auto) (NEGATIVE) /HPF Unidentified Crystals (NEGATIVE) /HPF Urine Mucus (Auto) (NEGATIVE) /HPF Urine Culture Reflexed (NO) Urine Sodium (30-90) mmol/L Urine Glucose (NEGATIVE) mg/dL Urine Opiates Level (NEGATIVE) Ur Methadone (NEGATIVE) Urine Barbiturates (NEGATIVE) Ur Phencyclidine (PCP) (NEGATIVE) Urine Amphetamine (NEGATIVE) U Benzodiazepine Level (NEGATIVE) Urine Cocaine (NEGATIVE) Urine Marijuana (THC) (NEGATIVE) 11/07/19 11/08/19 11/08/19 Range/Units 23:20 04:35 04:35 WBC 7.4 (4.0-10.5) K/mm3 RBC 4.06 L (4.1-5.6) M/mm3 Hgb 12.1 L (12.5-18.0) gm/dl Hct 35.1 L (42-50) % MCV 86.5 (78-100) fl MCH 29.8 (26-32) pg MCHC 34.5 (32-36) g/dl RDW 13.3 (11.5-14.0) % Plt Count 180 (150-450) K/mm3 MPV 8.6 (7.5-11.0) fl Gran % 67.9 H (36.0-66.0) % Eos # (Auto) 0.14 (0-0.5) Absolute Lymphs (auto) 1.35 (1.0-4.6) Absolute Monos (auto) 0.88 (0.0-1.3) Lymphocytes % 18.2 L (24.0-44.0) % Monocytes % 11.9 (0.0-12.0) % Eosinophils % 1.9 (0.00-5.0) % Basophils % 0.1 (0.0-0.4) % Absolute Granulocytes 5.04 (1.4-6.9) Basophils # 0.01 (0-0.4) PT (8.83-12.87) SECONDS INR (0.8-3.0) Sodium 124 L (137-145) mmol/L Potassium 5.0 (3.5-5.1) mmol/L Chloride 92 L (98-107) mmol/L Carbon Dioxide 22 (22-30) mmol/L Anion Gap 14.9 (5-15) MEQ/L BUN 36 H (9-20) mg/dL Creatinine 3.03 H (0.66-1.25) mg/dL Estimated GFR 21.0 ML/MIN Glucose 100 (74-106) mg/dL Calcium 8.0 L (8.4-10.2) mg/dL Total Bilirubin 0.90 (0.2-1.3) mg/dL AST 33 (17-59) U/L ALT 17 (0-50) U/L Alkaline Phosphatase 66 (38-126) U/L Troponin I < 0.012 (0.000-0.034) ng/mL NT-Pro-B Natriuret Pep (0-1800) pg/mL Serum Total Protein 6.0 L (6.3-8.2) g/dL Albumin 3.1 L (3.5-5.0) g/dL Urine Color (YELLOW) Urine Appearance (CLEAR) Urine pH (5-6) Ur Specific [place] (1.005-1.025) Urine Protein (Negative) Urine Ketones (NEGATIVE) Urine Blood (0-5) Tino/ul Urine Nitrite (NEGATIVE) Urine Bilirubin (NEGATIVE) Urine Urobilinogen (0-1) mg/dL Ur Leukocyte Esterase (NEGATIVE) Urine WBC (Auto) (0-5) /HPF Urine RBC (Auto) (0-2) /HPF U Epithel Cells (Auto) (FEW) /HPF Urine Bacteria (Auto) (NEGATIVE) /HPF Unidentified Crystals (NEGATIVE) /HPF Urine Mucus (Auto) (NEGATIVE) /HPF Urine Culture Reflexed (NO) Urine Sodium (30-90) mmol/L Urine Glucose (NEGATIVE) mg/dL Urine Opiates Level (NEGATIVE) Ur Methadone (NEGATIVE) Urine Barbiturates (NEGATIVE) Ur Phencyclidine (PCP) (NEGATIVE) Urine Amphetamine (NEGATIVE) U Benzodiazepine Level (NEGATIVE) Urine Cocaine (NEGATIVE) Urine Marijuana (THC) (NEGATIVE) Microbiology 11/07/19 10:54 Urine Culture - Preliminary Catherized NO GROWTH TO DATE - Radiology Impressions Radiology Exams & Impressions: Radiology Procedures Category Date Time Status CHEST 1 VIEW (PORTABLE) Routine Exams 11/07/19 16:51 Completed HEAD WITHOUT CONTRAST [CT] Stat Exams 11/07/19 11:06 Completed - Other Procedures and Tests Respiratory Therapy 11/07/19 17:57 Oxygen NASAL CANNULA 2 lpm 11/08/19 07:00 Respiratory MDI DAILY Respiratory MDI TID Respiratory Therapy Assessment DAILY Assessment/Plan (1) Acute renal failure Current Visit: Yes Status: Acute Qualifiers: Acute renal failure type: unspecified Qualified Code(s): N17.9 - Acute kidney failure, unspecified Assessment & Plan: Will increase fluids gently and recheck in a.m. - if not significantly better would do nephrology consult. (2) Hyponatremia Current Visit: Yes Status: Acute Assessment & Plan: Na is slowly improving; up to 124 this morning. Code(s): E87.1 - HYPO-OSMOLALITY AND HYPONATREMIA (3) Dehydration Current Visit: Yes Status: Acute Code(s): E86.0 - DEHYDRATION (4) Shingles Current Visit: Yes Status: Acute Qualifiers: Herpes zoster complications: without complications Qualified Code(s): B02.9 - Zoster without complications Code(s): B02.9 - ZOSTER WITHOUT COMPLICATIONS (5) Dementia Current Visit: No Status: Chronic Code(s): F03.90 - UNSPECIFIED DEMENTIA WITHOUT BEHAVIORAL DISTURBANCE
[2019-11-08] MEDS ORDERED: Sodium Chloride 0.9% 1000 ML 1,000 ML IV STA ×2 (09:25→13:28)
[2019-11-08] MEDS: Protonix 40MG Tablet PO SCH (09:31)
[2019-11-08] MEDS: NEURONTIN 300 MG PO SCH (09:31)
[2019-11-08] MEDS: ECOTRIN 81 MG PO SCH (09:31)
[2019-11-08] MEDS ORDERED: NON-FORMULARY ITEM (Fluticasone/Vilanterol [Breo Ellipta 100-25 Mcg Inh] 1 PUFF) IH SCH (10:00)
[2019-11-08] MEDS ORDERED: NON-FORMULARY ITEM (Rabeprazole Sodium [Aciphex] 20 MG) PO SCH (10:00)
[2019-11-08] MEDS ORDERED: NON-FORMULARY ITEM (Aspirin [Aspirin] 81 MG) PO SCH (10:00)
[2019-11-08] MEDS: Ativan 0.5 MG PO SCH (20:40)
[2019-11-08] MEDS: Flomax 0.4 MG PO SCH (20:40)
[2019-11-08] MEDS: Zocor 10MG PO SCH (20:40)
[2019-11-08] MEDS: TYLENOL 325 MG PO PRN (20:48)
[2019-11-09] MEDS: ZOVIRAX 800 MG PO SCH ×6 (00:17→23:47)
[2019-11-09] MEDS: Sodium Chloride 0.9% 1000 ML 1,000 ML IV SCH ×3 (01:54→21:43)
[2019-11-09] MEDS: PATIENT OWN MEDICATION IH SCH ×4 (07:50→20:55)
[2019-11-09 08:02] LABS: Hematocrit 32.7 % (42-50); Hemoglobin 12.8 gm/dl (12.5-18.0); Mean Cell Volume 87.2 fl (78-100); Mean Corpuscular Hemoglobin 34.1 pg (26-32); Mean Corpuscular Hgb Concent. 39.1 g/dl (32-36); Mean Platelet Volume 8.4 fl (7.5-11.0); Platelet Count 221 K/mm3 (150-450); Red Blood Count 3.75 M/mm3 (4.1-5.6); Red Cell Distribution Width 13.8 % (11.5-14.0); White Blood Count 8.2 K/mm3 (4.0-10.5)
[2019-11-09 08:16] LABS: ANION GAP 13.1 MEQ/L (5-15); Calcium 8.6 mg/dL (8.4-10.2); Creatinine 1 1.63 mg/dL (0.66-1.25); Potassium 4.5 mmol/L (3.5-5.1)
[2019-11-09] MEDS: TYLENOL 325 MG PO PRN ×3 (08:17→20:35)
[2019-11-09 08:29] LABS: Slide Review YES
--- NOTE | 2019-11-09 10:17 | PCM.NOTE ---
Date and Time: 11/09/19 1009 Subjective Assessment: Pt. doing well, yesterday still very dehydrated with assist of 2 today only standby of 1, Pt. notes feeling better as well, very conversive this am. - Review of Systems Constitutional: No Fever, No Chills Eyes: No Symptoms Ears, Nose, & Throat: No Symptoms Respiratory: No Cough, No Short Of Breath Cardiac: No Chest Pain, No Edema, No Syncope Abdominal/Gastrointestinal: No Abdominal Pain, No Nausea, No Vomiting, No Diarrhea Genitourinary Symptoms: No Dysuria Skin: Rash Objective Exam General Appearance: no apparent distress, alert Neurologic Exam: alert, oriented x 3, cooperative, normal mood/affect Skin Exam: normal color, warm, dry, rash (on back scabbed over shingles noted.) Eye Exam: EOMI Ears, Nose, Throat Exam: normal ENT inspection Neck Exam: normal inspection Respiratory Exam: normal breath sounds, lungs clear, No respiratory distress Cardiovascular Exam: regular rate/rhythm, normal heart sounds OBJECTIVE DATA Vital Signs: Vital Signs - 24 hr Temp Pulse Resp BP Pulse Ox 11/09/19 08:29 60 18 98 11/09/19 08:00 99.0 F 60 18 159/81 98 11/09/19 03:35 98.4 F 87 20 168/88 96 11/09/19 00:29 98.3 F 83 20 164/89 97 11/08/19 19:55 81 20 95 11/08/19 19:36 98.1 F 79 20 140/74 94 L 11/08/19 16:00 97.1 F 76 18 140/80 96 11/08/19 13:25 76 18 97 11/08/19 12:00 97.4 F 76 18 140/70 97 Pain Assessment - Last Documented Pain Intensity 7 Pain Scale Used 0-10 Pain Scale Intake and Output: Intake & Output 11/06/19 11/07/19 11/08/19 11/09/19 11:59 11:59 11:59 11:59 Intake Total 2442 8591 Output Total 400 1950 3600 Balance -002 790 5325 Weight 89.9 kg 88.2 kg Lab Results: Lab Results-Last 24 Hours 11/09/19 11/09/19 Range/Units 07:40 07:40 WBC 8.2 (4.0-10.5) K/mm3 RBC 3.75 L (4.1-5.6) M/mm3 Hgb 12.8 (12.5-18.0) gm/dl Hct 32.7 L (42-50) % MCV 87.2 (78-100) fl MCH 34.1 H (26-32) pg MCHC 39.1 H (32-36) g/dl RDW 13.8 (11.5-14.0) % Plt Count 221 (150-450) K/mm3 MPV 8.4 (7.5-11.0) fl Sodium 135 L D (137-145) mmol/L Potassium 4.5 (3.5-5.1) mmol/L Chloride 105 D (98-107) mmol/L Carbon Dioxide 21 L (22-30) mmol/L Anion Gap 13.1 (5-15) MEQ/L BUN 27 H (9-20) mg/dL Creatinine 1.63 H (0.66-1.25) mg/dL Estimated GFR 43.0 ML/MIN Glucose 85 (74-106) mg/dL Calcium 8.6 (8.4-10.2) mg/dL Slides for Path Review YES Radiology Exams: Radiology Procedures Category Date Time Status CHEST 1 VIEW (PORTABLE) Routine Exams 11/07/19 16:51 Completed HEAD WITHOUT CONTRAST [CT] Stat Exams 11/07/19 11:06 Completed Assessment/Plan (1) Acute renal failure Current Visit: Yes Status: Acute Qualifiers: Acute renal failure type: unspecified Qualified Code(s): N17.9 - Acute kidney failure, unspecified Assessment & Plan: improved, bolus X2 yesterday now much improved. (2) Dehydration Current Visit: Yes Status: Acute Assessment & Plan: resolved Code(s): E86.0 - DEHYDRATION (3) Hyponatremia Current Visit: Yes Status: Acute Assessment & Plan: improved to 135, recheck in am Code(s): E87.1 - HYPO-OSMOLALITY AND HYPONATREMIA (4) Shingles Current Visit: Yes Status: Acute Qualifiers: Herpes zoster complications: without complications Qualified Code(s): B02.9 - Zoster without complications Code(s): B02.9 - ZOSTER WITHOUT COMPLICATIONS
[2019-11-09] MEDS: NEURONTIN 300 MG PO SCH (10:21)
[2019-11-09] MEDS: Protonix 40MG Tablet PO SCH (10:21)
[2019-11-09] MEDS: ECOTRIN 81 MG PO SCH (10:21)
[2019-11-09] MEDS: ANUSOL-HC 2.5% CREAM 30 GM TP SCH ×2 (10:32→19:58)
[2019-11-09] MEDS ORDERED: Artificial Tears 15 ML OP ONE (16:05)
[2019-11-09] MEDS: Artificial Tears 15 ML OP PRN ×2 (16:08→20:02)
[2019-11-09] MEDS: Ativan 0.5 MG PO SCH (20:01)
[2019-11-09] MEDS: Zocor 10MG PO SCH (20:02)
[2019-11-09] MEDS: Flomax 0.4 MG PO SCH (20:02)
[2019-11-10] MEDS: Ativan 0.5 MG PO SCH ×2 (02:08→21:26)
[2019-11-10] MEDS: TYLENOL 325 MG PO PRN ×2 (04:39→16:15)
[2019-11-10 04:46] LABS: Absolute Neutrophil Ct (ANC) 11.07 (1.4-6.9); BASOPHIL % 0.2 % (0.0-0.4); Basophil (Absolute #) 0.02 (0-0.4); Eosinophil % 0.6 % (0.00-5.0); Eosinophil (Absolute #) 0.07 (0-0.5); Hematocrit 34.4 % (42-50); Hemoglobin 11.6 gm/dl (12.5-18.0); Lymphocyte (Absolute #) 0.39 (1.0-4.6); Lymphocytes % 3.2 % (24.0-44.0); Mean Cell Volume 88.7 fl (78-100); Mean Corpuscular Hemoglobin 29.9 pg (26-32); Mean Corpuscular Hgb Concent. 33.7 g/dl (32-36); Monocyte (Absolute #) 0.64 (0.0-1.3); Monocytes % 5.3 % (0.0-12.0); Neutrophil % 90.7 % (36.0-66.0); Platelet Count 189 K/mm3 (150-450); Red Blood Count 3.88 M/mm3 (4.1-5.6); White Blood Count 12.2 K/mm3 (4.0-10.5)
[2019-11-10 04:56] LABS: ANION GAP 12.6 MEQ/L (5-15); BLOOD UREA NITROGEN 15 mg/dL (9-20); CHLORIDE 100 mmol/L (98-107); Calcium 8.1 mg/dL (8.4-10.2); Carbon Dioxide 24 mmol/L (22-30); Glucose 113 mg/dL (74-106); Potassium 4.2 mmol/L (3.5-5.1); SODIUM 132 mmol/L (137-145)
[2019-11-10] MEDS: ZOVIRAX 800 MG PO SCH ×5 (06:46→21:26)
[2019-11-10] MEDS: Sodium Chloride 0.9% 1000 ML 1,000 ML IV SCH ×2 (08:05→20:30)
--- NOTE | 2019-11-10 08:43 | PCM.NOTE ---
Date and Time: 11/10/19 0840 Subjective Assessment: Pt. feeling good today, no complaints. - Review of Systems Constitutional: No Symptoms Eyes: No Symptoms Ears, Nose, & Throat: No Symptoms Respiratory: No Cough, No Short Of Breath Cardiac: No Chest Pain, No Edema, No Syncope Abdominal/Gastrointestinal: No Abdominal Pain, No Nausea, No Vomiting, No Diarrhea Genitourinary Symptoms: Frequency Musculoskeletal: No Back Pain, No Neck Pain Skin: Rash Objective Exam General Appearance: no apparent distress Neurologic Exam: alert, cooperative Skin Exam: normal color, warm, dry, rash (scabbed rash of shingles noted on lower left back) Ears, Nose, Throat Exam: normal ENT inspection Neck Exam: normal inspection, non-tender, supple, full range of motion Respiratory Exam: normal breath sounds Cardiovascular Exam: regular rate/rhythm, normal heart sounds Gastrointestinal/Abdomen Exam: soft, normal bowel sounds OBJECTIVE DATA Vital Signs: Vital Signs - 24 hr Temp Pulse Resp BP Pulse Ox 11/10/19 07:13 98.8 F 103 H 24 143/73 95 11/10/19 05:44 106 H 20 92 L 11/10/19 04:25 100.0 F 105 H 21 174/100 97 11/10/19 01:58 105 H 20 97 11/10/19 00:04 98.9 F 89 18 186/86 98 11/09/19 21:45 92 H 20 93 L 11/09/19 20:56 104 H 22 95 11/09/19 19:09 98.5 F 97 H 18 150/88 94 L 11/09/19 19:00 11 L 11/09/19 18:00 18 11/09/19 17:46 96 H 17 96 11/09/19 17:00 17 11/09/19 16:00 90 17 94 L 11/09/19 15:00 15 11/09/19 14:54 97.3 F 82 12 136/61 96 11/09/19 14:00 81 18 93 L 11/09/19 13:16 75 18 96 11/09/19 13:00 17 11/09/19 12:00 9 L 11/09/19 10:56 98.0 F 72 16 154/84 92 L Pain Assessment - Last Documented Pain Intensity 6 Pain Scale Used 0-10 Pain Scale Intake and Output: Intake & Output 0411/08/19 11/09/19 11/10/19 11:59 11:59 11:59 11:59 Intake Total 4120 6150 0422 Output Total 400 2091 1164 2208 Balance -805 894 [id number] 2742 7552 Weight 89.9 kg 88.2 kg 87 kg 88.8 kg Lab Results: Lab Results-Last 24 Hours 11/07/19 11/10/19 11/10/19 Range/Units 11:00 04:30 04:30 WBC 12.2 H (4.0-10.5) K/mm3 RBC 3.88 L (4.1-5.6) M/mm3 Hgb 11.6 L (12.5-18.0) gm/dl Hct 34.4 L (42-50) % MCV 88.7 (78-100) fl MCH 29.9 (26-32) pg MCHC 33.7 (32-36) g/dl RDW 14.0 (11.5-14.0) % Plt Count 189 (150-450) K/mm3 MPV 8.0 (7.5-11.0) fl Gran % 90.7 H (36.0-66.0) % Eos # (Auto) 0.07 (0-0.5) Absolute Lymphs (auto) 0.39 L (1.0-4.6) Absolute Monos (auto) 0.64 (0.0-1.3) Lymphocytes % 3.2 L (24.0-44.0) % Monocytes % 5.3 (0.0-12.0) % Eosinophils % 0.6 (0.00-5.0) % Basophils % 0.2 (0.0-0.4) % Absolute Granulocytes 11.07 H (1.4-6.9) Basophils # 0.02 (0-0.4) Sodium 132 L (137-145) mmol/L Potassium 4.2 (3.5-5.1) mmol/L Chloride 100 (98-107) mmol/L Carbon Dioxide 24 (22-30) mmol/L Anion Gap 12.6 (5-15) MEQ/L BUN 15 (9-20) mg/dL Creatinine 1.10 (0.66-1.25) mg/dL Estimated GFR > 60.0 ML/MIN Glucose 113 H (74-106) mg/dL Serum Osmolality 255 L (282-304) mOsm/kg Calcium 8.1 L (8.4-10.2) mg/dL Slides for Path Review Multi-Disciplinary Progress Notes: Multi-Disciplinary Progress Notes 11/09/19 10:32 Case Management Note by Lexi Cornejo NO CHANGE IN DC PLANS AT THIS TIME. CURRENTLY IN UNION FOR R/O COVID-19. WHEN S/W FAMILY 11/07-HILDA WAS ADAMENTLY AGAINST CUSTODIAL PLACEMENT. THEY HAVE LOTS OF FAMILY SUPPORT TO HELP CARE FOR THEM. HOWEVER D/T CURRENT COVID CONCERNS WILL CONTINUE TO FOLLOW AND EVALUATE. Initialized on 11/09/19 10:32 - END OF NOTE Assessment/Plan (1) Acute renal failure Current Visit: Yes Status: Acute Qualifiers: Acute renal failure type: unspecified Qualified Code(s): N17.9 - Acute kidney failure, unspecified Assessment & Plan: resolved with ivf (2) Dehydration Current Visit: Yes Status: Acute Assessment & Plan: resolved with ivf Code(s): E86.0 - DEHYDRATION (3) Hyponatremia Current Visit: Yes Status: Acute Assessment & Plan: overall improved, Code(s): E87.1 - HYPO-OSMOLALITY AND HYPONATREMIA (4) Shingles Current Visit: Yes Status: Acute Qualifiers: Herpes zoster complications: without complications Qualified Code(s): B02.9 - Zoster without complications Assessment & Plan: tmax of 100 with urinary frequency last night will check u/a, decreased ivf, and recheck cxr Code(s): B02.9 - ZOSTER WITHOUT COMPLICATIONS
[2019-11-10] MEDS: ECOTRIN 81 MG PO SCH (09:47)
[2019-11-10] MEDS: Protonix 40MG Tablet PO SCH (09:47)
[2019-11-10] MEDS: NEURONTIN 300 MG PO SCH (09:47)
[2019-11-10] MEDS: Artificial Tears 15 ML OP PRN ×2 (09:48→21:42)
[2019-11-10] MEDS: ANUSOL-HC 2.5% CREAM 30 GM TP SCH ×2 (09:48→21:42)
[2019-11-10 11:43] LABS: Appearance CLEAR (CLEAR); Bacteria FEW /HPF (NEGATIVE); Bilirubin NEGATIVE (NEGATIVE); Blood SMALL Ery/ul (0-5); Glucose NEGATIVE (NEGATIVE); Ketones TRACE (NEGATIVE); Leukocyte Esterase NEGATIVE (NEGATIVE); Mucus SLIGHT /HPF (NEGATIVE); Nitrite NEGATIVE (NEGATIVE); Protein,Urine Dip NEGATIVE (Negative); Urobilinogen NEGATIVE mg/dL (0-1)
[2019-11-10] MEDS: PATIENT OWN MEDICATION IH SCH ×3 (13:39→20:19)
[2019-11-10] MEDS: Zocor 10MG PO SCH (21:25)
[2019-11-10] MEDS: Flomax 0.4 MG PO SCH (21:26)
[2019-11-11] MEDS: Ativan 0.5 MG PO SCH ×2 (02:51→21:22)
[2019-11-11 06:11] LABS: Absolute Neutrophil Ct (ANC) 12.44 (1.4-6.9); BASOPHIL % 0.1 % (0.0-0.4); Basophil (Absolute #) 0.02 (0-0.4); Eosinophil % 2.1 % (0.00-5.0); Hematocrit 31.3 % (42-50); Hemoglobin 10.5 gm/dl (12.5-18.0); Lymphocyte (Absolute #) 0.75 (1.0-4.6); Lymphocytes % 5.2 % (24.0-44.0); Mean Cell Volume 89.2 fl (78-100); Mean Corpuscular Hemoglobin 29.9 pg (26-32); Mean Corpuscular Hgb Concent. 33.5 g/dl (32-36); Mean Platelet Volume 8.1 fl (7.5-11.0); Monocyte (Absolute #) 0.78 (0.0-1.3); Monocytes % 5.5 % (0.0-12.0); Neutrophil % 87.1 % (36.0-66.0); Platelet Count 177 K/mm3 (150-450); Red Blood Count 3.51 M/mm3 (4.1-5.6); Red Cell Distribution Width 14.2 % (11.5-14.0); White Blood Count 14.3 K/mm3 (4.0-10.5)
[2019-11-11] MEDS: PATIENT OWN MEDICATION IH SCH ×4 (07:58→19:16)
--- NOTE | 2019-11-11 09:47 | PCM.NOTE ---
Date and Time: 11/11/19943 Subjective Assessment: Pt. feeling good, would like to go home, covid test negative. - Review of Systems Constitutional: No Fever, No Chills Ears, Nose, & Throat: No Symptoms Respiratory: No Cough, No Short Of Breath Cardiac: No Chest Pain, No Edema, No Syncope Abdominal/Gastrointestinal: No Abdominal Pain, No Nausea, No Vomiting, No Diarrhea Genitourinary Symptoms: No Dysuria Skin: No Rash Objective Exam General Appearance: no apparent distress Neurologic Exam: alert, cooperative Skin Exam: normal color, warm, dry Eye Exam: EOMI, eyes nml inspection Ears, Nose, Throat Exam: normal ENT inspection Neck Exam: normal inspection Respiratory Exam: normal breath sounds Cardiovascular Exam: regular rate/rhythm, normal heart sounds OBJECTIVE DATA Vital Signs: Vital Signs - 24 hr Temp Pulse Resp BP Pulse Ox 11/11/19 09:00 100 H 16 95 11/11/19 08:00 18 11/11/19 07:59 95 H 18 97 11/11/19 07:00 98.5 F 109 H 18 132/71 96 11/11/19 06:48 18 11/11/19 06:00 18 11/11/19 05:45 112 H 18 95 11/11/19 05:00 21 11/11/19 04:55 104 H 24 96 11/11/19 03:47 27 H 11/11/19 03:46 97.9 F 108 H 17 120/60 94 L 11/11/19 03:00 27 H 11/11/19 02:57 109 H 27 H 96 11/11/19 02:00 15 11/11/19 01:50 105 H 28 H 96 11/11/19 00:52 108 H 20 95 11/11/19 00:00 14 11/10/19 23:59 98.2 F 104 H 26 H 122/75 96 11/10/19 23:00 104 H 19 96 11/10/19 22:15 104 H 25 H 98 11/10/19 22:00 18 11/10/19 21:49 91 H 18 96 11/10/19 21:00 18 11/10/19 20:41 88 16 96 11/10/19 20:02 98.6 F 101 H 17 118/74 95 11/10/19 20:00 16 11/10/19 19:59 98.6 F 101 H 17 118/74 95 11/10/19 19:00 16 11/10/19 18:00 100 H 24 95 11/10/19 17:55 94 H 22 96 11/10/19 17:00 18 11/10/19 16:00 101.3 F 106 H 22 142/74 97 11/10/19 15:00 12 11/10/19 14:00 108 H 22 95 11/10/19 13:39 95 H 16 97 11/10/19 13:00 17 11/10/19 12:00 21 11/10/19 11:50 97.6 F 97 H 19 136/79 97 11/10/19 11:00 22 11/10/19 10:00 21 Oxygen-Last 24 hours Oxygen Flowrate (L/min)-RT 2 Pain Assessment - Last Documented Pain Intensity 0 Pain Scale Used 0-10 Pain Scale Intake and Output: Intake & Output 11/08/19 11/09/19 11/10/19 11/11/19 11:59 11:59 11:59 11:59 Intake Total 2442 8591 5361 5401 Output Total 1950 3600 2600 1850 Balance 492 4991 9981 3551 Weight 88.2 kg 87 kg 88.8 kg 88.8 kg Lab Results: Lab Results-Last 24 Hours 11/09/19 11/10/19 11/11/19 Range/Units 11:34 08:39 05:30 WBC 14.3 H (4.0-10.5) K/mm3 RBC 3.51 L (4.1-5.6) M/mm3 Hgb 10.5 L (12.5-18.0) gm/dl Hct 31.3 L (42-50) % MCV 89.2 (78-100) fl MCH 29.9 (26-32) pg MCHC 33.5 (32-36) g/dl RDW 14.2 H (11.5-14.0) % Plt Count 177 (150-450) K/mm3 MPV 8.1 (7.5-11.0) fl Gran % 87.1 H (36.0-66.0) % Eos # (Auto) 0.30 (0-0.5) Absolute Lymphs (auto) 0.75 L (1.0-4.6) Absolute Monos (auto) 0.78 (0.0-1.3) Lymphocytes % 5.2 L (24.0-44.0) % Monocytes % 5.5 (0.0-12.0) % Eosinophils % 2.1 (0.00-5.0) % Basophils % 0.1 (0.0-0.4) % Absolute Granulocytes 12.44 H (1.4-6.9) Basophils # 0.02 (0-0.4) Urine Color YELLOW (YELLOW) Urine Appearance CLEAR (CLEAR) Urine pH 5.0 (5-6) Ur Specific Sulphur 1.010 (1.005-1.025) Urine Protein NEGATIVE (Negative) Urine Ketones TRACE (NEGATIVE) Urine Blood SMALL (0-5) Tino/ul Urine Nitrite NEGATIVE (NEGATIVE) Urine Bilirubin NEGATIVE (NEGATIVE) Urine Urobilinogen NEGATIVE (0-1) mg/dL Ur Leukocyte Esterase NEGATIVE (NEGATIVE) Urine WBC (Auto) 6-10 (0-5) /HPF Urine RBC (Auto) 3-5 (0-2) /HPF U Epithel Cells (Auto) NONE (FEW) /HPF Urine Bacteria (Auto) FEW (NEGATIVE) /HPF Urine Mucus (Auto) SLIGHT (NEGATIVE) /HPF Urine Culture Reflexed YES (NO) Urine Glucose NEGATIVE (NEGATIVE) mg/dL COVID-19 (BERT) SEE SEPARATE REPORT Radiology Exams: Radiology Procedures Category Date Time Status CHEST 1 VIEW (PORTABLE) DAILY Exams 11/11/19 09:45 Ordered CHEST 1 VIEW (PORTABLE) Routine Exams 11/11/19 08:30 Taken Multi-Disciplinary Progress Notes: Multi-Disciplinary Progress Notes 11/10/19 10:16 Case Management Note by Lexi Cornejo S/W PATIENT'S DAUGHTER HILDA- SHE REPORTS THEY CONTINUE TO PLAN TO TAKE PATIENT HOME AT TIME OF DC WITH HOME HEALTHCARE AND FAMILY TO HELP. PATIENT'S 'S COVID RESULTS ARE NOT BACK AT THIS TIME. THEY PLAN FOR PATIENT TO STAY AT HIS DAUGHTERS HOUSE TO ISOLATE AWAY FROM HIS IF NEEDED. [facility] WILL NEED CONTACTED AT TIME OF DC AND FAXED DC PAPERWORK AT THAT TIME. THIS INFORMATION IS ON REPORT SHEET Initialized on 11/10/19 10:16 - END OF NOTE Assessment/Plan (1) Acute renal failure Current Visit: Yes Status: Acute Qualifiers: Acute renal failure type: unspecified Qualified Code(s): N17.9 - Acute kidney failure, unspecified Assessment & Plan: resolved (2) Dehydration Current Visit: Yes Status: Acute Code(s): E86.0 - DEHYDRATION (3) Hyponatremia Current Visit: Yes Status: Acute Code(s): E87.1 - HYPO-OSMOLALITY AND HYPONATREMIA (4) Shingles Current Visit: Yes Status: Acute Qualifiers: Herpes zoster complications: without complications Qualified Code(s): B02.9 - Zoster without complications Code(s): B02.9 - ZOSTER WITHOUT COMPLICATIONS (5) Pneumonia Current Visit: No Status: Acute Onset Date: 12/01/13 Assessment & Plan: add levaquin 750, recheck cxr and labs in am, covid negative, if improved will be able to treat op with patient living with daughter that is a nurse. Code(s): J18.9 - PNEUMONIA, UNSPECIFIED ORGANISM
[2019-11-11] MEDS: Protonix 40MG Tablet PO SCH (12:06)
[2019-11-11] MEDS: ECOTRIN 81 MG PO SCH (12:06)
[2019-11-11] MEDS: NEURONTIN 300 MG PO SCH (12:06)
[2019-11-11] MEDS: ZOVIRAX 800 MG PO SCH ×4 (12:06→21:23)
[2019-11-11] MEDS: LEVOFLOXACIN 750MG/150ML D5W 750 MG/150 ML BAG IV SCH (12:07)
[2019-11-11] MEDS: Sodium Chloride 0.9% 1000 ML 1,000 ML IV SCH (12:07)
--- NOTE | 2019-11-11 20:02 | XRAY ---
Indication: Cough. Suspect COVID 19. Comparison: November 07, 2019. Portable chest again demonstrates COPD and chronic lung markings. New left base interstitial alveolar opacity without consolidation/large effusion. Heart is not enlarged. Bony thorax intact again with mild osteopenia and degenerative changes. Impression: 1. New left base interstitial alveolar opacity. Correlate clinically. 2. Stable COPD and CIPD. Comment: Preliminary interpretation was made by [facility]. No critical discrepancy.
[2019-11-11] MEDS: Zocor 10MG PO SCH (21:22)
[2019-11-11] MEDS: Flomax 0.4 MG PO SCH (21:23)
[2019-11-12] MEDS: ZOVIRAX 800 MG PO SCH ×3 (00:06→11:48)
[2019-11-12] MEDS: Ativan 0.5 MG PO SCH (02:26)
[2019-11-12] MEDS: Sodium Chloride 0.9% 1000 ML 1,000 ML IV SCH ×2 (02:26→08:19)
[2019-11-12] MEDS: TYLENOL 325 MG PO PRN ×2 (02:35→12:28)
[2019-11-12 05:42] LABS: Absolute Neutrophil Ct (ANC) 8.68 (1.4-6.9); BASOPHIL % 0.2 % (0.0-0.4); Basophil (Absolute #) 0.02 (0-0.4); Eosinophil % 4.8 % (0.00-5.0); Eosinophil (Absolute #) 0.53 (0-0.5); Lymphocyte (Absolute #) 1.03 (1.0-4.6); Lymphocytes % 9.3 % (24.0-44.0); Mean Cell Volume 89.6 fl (78-100); Mean Corpuscular Hemoglobin 29.9 pg (26-32); Mean Corpuscular Hgb Concent. 33.3 g/dl (32-36); Mean Platelet Volume 8.4 fl (7.5-11.0); Monocyte (Absolute #) 0.87 (0.0-1.3); Monocytes % 7.8 % (0.0-12.0); Neutrophil % 77.9 % (36.0-66.0); Platelet Count 199 K/mm3 (150-450); Red Blood Count 3.35 M/mm3 (4.1-5.6); Red Cell Distribution Width 14.2 % (11.5-14.0); White Blood Count 11.1 K/mm3 (4.0-10.5)
[2019-11-12 05:54] LABS: ANION GAP 10.1 MEQ/L (5-15); BLOOD UREA NITROGEN 12 mg/dL (9-20); CHLORIDE 101 mmol/L (98-107); Calcium 7.4 mg/dL (8.4-10.2); Carbon Dioxide 22 mmol/L (22-30); Creatinine 1 0.74 mg/dL (0.66-1.25); Glucose 112 mg/dL (74-106); Potassium 3.1 mmol/L (3.5-5.1); SODIUM 130 mmol/L (137-145)
[2019-11-12 07:25] VITALS: BP 100/66; O2SAT 95
[2019-11-12] MEDS: PATIENT OWN MEDICATION IH SCH ×2 (08:16)
[2019-11-12 08:18] VITALS: PULSE 78
[2019-11-12] MEDS: ANUSOL-HC 2.5% CREAM 30 GM TP SCH (08:19)
[2019-11-12] MEDS: Protonix 40MG Tablet PO SCH (09:15)
[2019-11-12] MEDS: NEURONTIN 300 MG PO SCH (09:15)
[2019-11-12] MEDS: ECOTRIN 81 MG PO SCH (09:15)
[2019-11-12] MEDS: LEVOFLOXACIN 750MG/150ML D5W 750 MG/150 ML BAG IV SCH ×2 (09:18→10:04)
[2019-11-12] MEDS ORDERED: Naprosyn 500 MG PO ONE (09:55)
[2019-11-12] MEDS: Macrobid 100MG Capsule PO SCH ×2 (10:00→10:04)
[2019-11-12] MEDS ORDERED: Klor Con 10 MEQ PO SCH (11:54)
--- NOTE | 2019-11-12 13:18 | PCM.DS ---
Discharge Summary Date of Admission: 11/07/19 13:23 Admitting Physician: ELKE POPE Primary Care Provider: JESUS ALBERTO YEAGER Allergies Allergies morphine Allergy (Verified 12/02/18 16:22) unknown rx Hospital Summary - Hospital Course Hospital Course: is a 84 year old male pt of Dr. Georgina Yeager who was admitted through ER with hyponatremia and acute renal failure. He c/o weakness, confusion, and dizziness for about 1 week. Na in ER was 120 and his BUN/Cr were 37/3.[address] head non acute on admission. He was rehydrated, at first gently then more aggressively and his renal function improved to eGFR>60. He was moved to the COVID unit when his was taken to a hospital in [place] to be tested for COVID-19 (pt's and 's COVID tests were negative). HOwever yesterday pt's CXR showed L base alveolar opacity, so he was started on IV levaquin. He also was found to have UTI and urine culture returned Enterococcus , resistant to levaquin, so last night he was started on po macrobid as well. Pt had shingles on admission, and was noted to have small amounts of exudate from the lesions on his back so was on airborne precautions throughout his stay. Pt is feeling good today; west po although his appetite is diminished. Up and to the bathroom by himself. He'll be living with his daughter and granddaughter currently, and will be sent home on po levaquin and macrobid. I instructed him to eat a container of yogurt daily in an effort to prevent diarrhea. - Vitals & Intake/Output Vital Signs: Vital Signs Temperature 98.8 F 11/12/19 12:00 Pulse Rate 78 11/12/19 12:00 Respiratory Rate 18 11/12/19 12:00 Blood Pressure 100/66 11/12/19 12:00 O2 Sat by Pulse Oximetry 95 11/12/19 12:00 Intake & Output: Intake & Output 11/10/19 11/11/19 11/12/19 11/13/19 11:59 11:59 11:59 11:59 Intake Total 5361 5401 2420 240 Output Total 2600 1850 1500 500 Balance 2761 3551 920 -260 Weight 88.8 kg 88.8 kg 88.8 kg - Lab Result Diagrams: 11/12/19 05:15 11/12/19 05:15 Lab Results-Last 24 Hrs: Lab Results-Last 24 Hours 11/12/19 11/12/19 Range/Units 05:15 05:15 WBC 11.1 H (4.0-10.5) K/mm3 RBC 3.35 L (4.1-5.6) M/mm3 Hgb 10.0 L (12.5-18.0) gm/dl Hct 30.0 L (42-50) % MCV 89.6 (78-100) fl MCH 29.9 (26-32) pg MCHC 33.3 (32-36) g/dl RDW 14.2 H (11.5-14.0) % Plt Count 199 (150-450) K/mm3 MPV 8.4 (7.5-11.0) fl Gran % 77.9 H (36.0-66.0) % Eos # (Auto) 0.53 H (0-0.5) Absolute Lymphs (auto) 1.03 (1.0-4.6) Absolute Monos (auto) 0.87 (0.0-1.3) Lymphocytes % 9.3 L (24.0-44.0) % Monocytes % 7.8 (0.0-12.0) % Eosinophils % 4.8 (0.00-5.0) % Basophils % 0.2 (0.0-0.4) % Absolute Granulocytes 8.68 H (1.4-6.9) Basophils # 0.02 (0-0.4) Sodium 130 L (137-145) mmol/L Potassium 3.1 L (3.5-5.1) mmol/L Chloride 101 (98-107) mmol/L Carbon Dioxide 22 (22-30) mmol/L Anion Gap 10.1 (5-15) MEQ/L BUN 12 (9-20) mg/dL Creatinine 0.74 (0.66-1.25) mg/dL Estimated GFR > 60.0 ML/MIN Glucose 112 H (74-106) mg/dL Calcium 7.4 L (8.4-10.2) mg/dL Micro Results-Entire Visit: Microbiology 11/10/19 08:39 Urine Culture - Final Clean Catch Midstream Enterococcus Faecium 11/07/19 10:54 Urine Culture - Final Catherized NO GROWTH - Radiology Exams Ordered Rad Exams-Entire Visit: Radiology Procedures Category Date Time Status CHEST 1 VIEW (PORTABLE) Routine Exams 11/11/19 08:30 Completed - Procedures and Test Procedures and Tests throughout Hospitalization: Therapy Orders & Screens 11/07/19 17:57 Oxygen NASAL CANNULA 2 lpm Comment: at night Diagnosis: hyponatremia, dehydration, confusion 11/08/19 07:00 Respiratory MDI DAILY Comment: BREO DAILY Diagnosis: hyponatremia, dehydration, confusion Respiratory MDI TID Comment: COMBIVENT TID Diagnosis: hyponatremia, dehydration, confusion Respiratory Therapy Assessment DAILY Comment: at night Diagnosis: hyponatremia, dehydration, confusion Discharge Exam General Appearance: no apparent distress, alert Neurologic Exam: oriented x 3, cooperative Eye Exam: eyes nml inspection Ears, Nose, Throat Exam: moist mucous membranes Neck Exam: normal inspection Respiratory Exam: normal breath sounds, lungs clear, No crackles/rales, No rhonchi, No wheezing Cardiovascular Exam: regular rate/rhythm, normal heart sounds, No murmur Skin Exam: warm, dry, rash (on L mid back extending around to inferior to L breast; on the back there are some lesions that are open with yellow base) Final Diagnosis/Problem List - Final Discharge Diagnosis/Problem (1) Pneumonia Current Visit: Yes Status: Acute Assessment & Plan: Breathing is good and he is not on O2. Home on levaquin. Code(s): J18.9 - PNEUMONIA, UNSPECIFIED ORGANISM (2) UTI (urinary tract infection) Current Visit: Yes Status: Acute Assessment & Plan: Enterococcus, resistant to levoquin. Home on macrobid. Code(s): N39.0 - URINARY TRACT INFECTION, SITE NOT SPECIFIED (3) Acute renal failure Current Visit: Yes Status: Resolved (4) Hyponatremia Current Visit: Yes Status: Chronic Assessment & Plan: I believe this is likely chronic; Na back down to 130 today. Highest it's been here is 135. Code(s): E87.1 - HYPO-OSMOLALITY AND HYPONATREMIA (5) Dehydration Current Visit: Yes Status: Resolved Code(s): E86.0 - DEHYDRATION (6) Shingles Current Visit: Yes Status: Acute Code(s): B02.9 - ZOSTER WITHOUT COMPLICATIONS (7) Dementia Current Visit: No Status: Chronic Priority: Low Code(s): F03.90 - UNSPECIFIED DEMENTIA WITHOUT BEHAVIORAL DISTURBANCE (8) Hypokalemia Current Visit: Yes Status: Acute Assessment & Plan: likely due to poor po intake, was fine earlier in his stay. On discharge, take potassium at home x 3d. Code(s): E87.6 - HYPOKALEMIA - Discharge Disposition: Home, Self-Care Condition: Stable Prescriptions: New Potassium Chloride 10 Meq Tab* [Klor Con 10 MEQ] 20 meq PO BID #6 tab Levofloxacin [Levaquin] 750 mg PO DAILY #5 tablet Nitrofurantoin Macro 100 mg [Macrobid 100MG Capsule] 100 mg PO BIDWM # 12 capsule Continue Multivitamin [Multi-Vitamin Daily] 1 each PO DAILY Aspirin 81 mg PO DAILY Rabeprazole Sodium [Aciphex] 20 mg PO DAILY Lorazepam 0.5 mg [Ativan 0.5 MG] 0.5 mg PO HS Atorvastatin Calcium [Lipitor] 10 mg PO QPM Vit B Comp/C/Folic/Iron/Vit E [Vitamin B Complex Tablet] 0.5 tab PO DAILY Tamsulosin HCl 0.4 mg [Flomax 0.4 MG] 1 cap PO HS Heth-3/Dha/Epa/Fish Oil [Heth 3 500 Softgel] 1 cap PO DAILY Diclofenac Sodium [Diclofenac Sodium ER] 1 tab PO DAILY Ipratropium/Albuterol Sulfate [Combivent Inhaler] 1 puff IH TID Fluticasone/Vilanterol [Breo Ellipta 100-25 Mcg INH] 1 puff IH DAILY Valacyclovir HCl [Valacyclovir] 1,000 mg PO TID Hydrocortisone/Pramoxine [Hydrocort-Pramoxine 2.5-1% Crm] 1 gm TOP BID Gabapentin 300 mg PO DAILY Carboxymethylcellulose Sodium [Thera Tears] 2 drops OP Q4HPRN PRN PRN Reason: dry eyes Discontinued Naproxen 375 mg [Naprosyn 375 mg] 550 mg PO Q12H PRN PRN PRN Reason: Pain Instructions: Shingles (DC), Preventing Falls Additional Instructions: [facility] WILL BE IN CONTACT TO MAKE A VISIT. THEIR PHONE NUMBER IS [phone]. Eat a serving of yogurt daily in order to avoid severe diarrhea - report severe , watery diarrhea to primary care provider as soon as possible. Follow up with: ELKE POPE [ACTIVE STAFF] - Call for Appointment
== END 2019-11-12 14:02 | disposition home or self-care (01) | DRG 194 ==
LOC: ED 10:26 → MED SURG 13:23 → ICU 11-11 14:04
PROVIDERS: ADMIT Family Medicine; ATTEND Family Medicine
DX: J18.9 Pneumonia, unspecified organism (principal); N17.9 Acute kidney failure, unspecified; N39.0 Urinary tract infection, site not specified; E87.1 Hypo-osmolality and hyponatremia; E86.0 Dehydration; R41.0 Disorientation, unspecified; B95.2 Enterococcus as the cause of diseases classified elsewhere; B02.9 Zoster without complications; R42 Dizziness and giddiness; J44.9 Chronic obstructive pulmonary disease, unspecified; R53.1 Weakness; F03.90 Unspecified dementia, unspecified severity, without behavioral disturbance, psychotic disturbance, mood disturbance, and anxiety; Z79.899 Other long term (current) drug therapy
CPT/HCPCS: 36000; 36415; 51701; 70450; 71045; 80048; 80053; 80307; 81001; 83880; 83930; 83935; 84300; 84484; 85025; 85027; 85610; 87077; 87086; 87186; 93005; 93041; 94640; 94760; 94762; 96360; 99285; U0002; J1956; A9270-GY

== ENCOUNTER 2020-01-19 16:47 | Emergency (ER) | payer MEDICARE, OTHER ==
--- NOTE | 2020-01-19 16:59 | ERPHSYRPT ---
- History of Present Illness Time Seen by Provider: 01/19/20 16:59 Source: patient, family Exam Limitations: no limitations Physician History: This is an 84-year-old white male who actually took his 's medication earlier today. It is been approximately 1 hour. He has no symptoms. Patient took a folic acid pill, Flexeril 5 mg pill, a 400 mg Neurontin instead of his usual 300 mg, and a 7.5 mg [place] instead of his 5 mg [place], Eliquis 5 mg and to 81 mg aspirin instead of 1 that he normally takes. Again, patient is asymptomatic. Timing/Duration: today Associated Symptoms: denies symptoms Allergies/Adverse Reactions: morphine Allergy (Verified 12/02/18 16:22) unknown rx Home Medications: Aspirin 81 mg PO DAILY 04/12/14 [History] Atorvastatin Calcium [Lipitor] 10 mg PO QPM 04/12/14 [History] Lorazepam 0.5 mg [Ativan 0.5 MG] 0.5 mg PO HS 04/12/14 [History] Multivitamin [Multi-Vitamin Daily] 1 each PO DAILY 04/12/14 [History] Rabeprazole Sodium [Aciphex] 20 mg PO DAILY 04/12/14 [History] Diclofenac Sodium [Diclofenac Sodium ER] 1 tab PO DAILY 11/07/19 [History] Fluticasone/Vilanterol [Breo Ellipta 100-25 Mcg INH] 1 puff IH DAILY 11/07/19 [History] Gabapentin 300 mg PO DAILY 11/07/19 [History] Hydrocortisone/Pramoxine [Hydrocort-Pramoxine 2.5-1% Crm] 1 gm TOP BID 11/07/19 [History] Ipratropium/Albuterol Sulfate [Combivent Inhaler] 1 puff IH TID 11/07/19 [History] Mccarley-3/Dha/Epa/Fish Oil [Mccarley 3 500 Softgel] 1 cap PO DAILY 11/07/19 [History] Tamsulosin HCl 0.4 mg [Flomax 0.4 MG] 1 cap PO HS 11/07/19 [History] Valacyclovir HCl [Valacyclovir] 1,000 mg PO TID 11/07/19 [History] Vit B Comp/C/Folic/Iron/Vit E [Vitamin B Complex Tablet] 0.5 tab PO DAILY 11/07/19 [History] Carboxymethylcellulose Sodium [Thera Tears] 2 drops OP Q4HPRN PRN 11/09/19 [History] Hx Tetanus, Diphtheria Vaccination/Date Given: Yes Hx Influenza Vaccination/Date Given: Yes Hx Pneumococcal Vaccination/Date Given: Yes Travel Risk - International Travel Have you traveled outside of the country in past 3 weeks: No - Coronavirus Screening Are you exhibiting any of the following symptoms?: No Close contact with a COVID-19 positive Pt in past 14-21 Days: No - Review of Systems Constitutional: No Symptoms Eyes: No Symptoms Ears, Nose, & Throat: No Symptoms Respiratory: No Symptoms Cardiac: No Symptoms Abdominal/Gastrointestinal: No Symptoms Genitourinary Symptoms: No Symptoms Musculoskeletal: No Symptoms Skin: No Symptoms Neurological: No Symptoms Psychological: No Symptoms Endocrine: No Symptoms Hematologic/Lymphatic: No Symptoms Immunological/Allergic: No Symptoms All Other Systems: Reviewed and Negative - Past Medical History Pertinent Past Medical History: Yes Neurological History: No Pertinent History ENT History: No Pertinent History Cardiac History: No Pertinent History, Other Respiratory History: Bronchitis, COPD, Other Endocrine Medical History: No Pertinent History Musculoskeletal History: Osteoarthritis, Other GI Medical History: Hernia History: No Pertinent History Psycho-Social History: No Pertinent History Male Reproductive Disorders: No Pertinent History Other Medical History: heart murmur, Rheumatic fever - Past Surgical History Past Surgical History: Yes Neuro Surgical History: No Pertinent History Cardiac: No Pertinent History Respiratory: Other Gastrointestinal: Hernia Repair Genitourinary: No Pertinent History Musculoskeletal: No Pertinent History Male Surgical History: Prostate Surgery, Testicular Surgery Other Surgical History: sinus surgery - Social History Smoking Status: Former smoker How long have you smoked: 4 years Exposure to second hand smoke: No Drug Use: none Patient Lives Alone: No - Nursing Vital Signs Nursing Vital Signs: Initial Vital Signs Temperature 97.2 F 01/19/20 16:56 Pulse Rate 73 01/19/20 16:56 Respiratory Rate 16 01/19/20 16:56 Blood Pressure 151/84 01/19/20 16:56 O2 Sat by Pulse Oximetry 98 01/19/20 16:56 Pain Scale Pain Intensity 0 - Physical Exam General Appearance: no apparent distress, alert Eye Exam: PERRL/EOMI, eyes nml inspection Ears, Nose, Throat Exam: normal ENT inspection, moist mucous membranes Neck Exam: normal inspection, non-tender, supple, full range of motion Respiratory Exam: normal breath sounds, lungs clear, airway intact, No chest tenderness, No respiratory distress Cardiovascular Exam: regular rate/rhythm, normal heart sounds, normal peripheral pulses Gastrointestinal/Abdomen Exam: No tenderness Rectal Exam: not done Back Exam: normal inspection, normal range of motion, No CVA tenderness, No vertebral tenderness Extremity Exam: normal inspection, normal range of motion, pelvis stable Neurologic Exam: alert, oriented x 3, cooperative, normal mood/affect, nml cerebellar function, nml station & gait, sensation nml Skin Exam: normal color, warm, dry Lymphatic Exam: No adenopathy SpO2 Interpretation: normal O2 Delivery: Room Air - Course Nursing assessment & vital signs reviewed: Yes - Progress Progress: unchanged Counseled pt/family regarding: diagnosis - Departure Departure Disposition: Home Clinical Impression: Accidental medication error, Encounter for medical screening examination Condition: Stable Critical Care Time: No Additional Instructions: Take your medication as prescribed. Follow-up with your primary care physician as needed. Observe for signs of bleeding or increased drowsiness. May return to the emergency department if needed.
[2020-01-19 17:20] VITALS: BP 151/84; PULSE 73; O2SAT 98
== END 2020-01-19 17:32 | disposition home or self-care (01) ==
LOC: ED 16:47
DX: T45.8X1A Poisoning by other primarily systemic and hematological agents, accidental (unintentional), initial encounter (principal); T48.1X1A Poisoning by skeletal muscle relaxants [neuromuscular blocking agents], accidental (unintentional), initial encounter; T42.6X1A Poisoning by other antiepileptic and sedative-hypnotic drugs, accidental (unintentional), initial encounter; T40.2X1A Poisoning by other opioids, accidental (unintentional), initial encounter; T45.511A Poisoning by anticoagulants, accidental (unintentional), initial encounter; T39.011A Poisoning by aspirin, accidental (unintentional), initial encounter; Z79.899 Other long term (current) drug therapy
CPT/HCPCS: 99283

== ENCOUNTER 2021-05-09 12:50 | Inpatient (IN) | payer MEDICARE, OTHER ==
--- NOTE | 2021-05-09 13:01 | ERPHSYRPT ---
- History of Present Illness Time Seen by Provider: 05/09/21 13:01 Source: patient Exam Limitations: no limitations Physician History: This is a 85-year-old white male patient of Dr. Mckinney who in the last few days has had increasing weakness and was found to have fever today. Patient presented to the emergency department via EMS with a temperature of 102 F. Patient has a history of COPD and bronchitis. He also has a history of elevated cholesterol, gastroesophageal reflux disease. Family told the nurse that he has been feeding raccoons and was scratched approximately a month ago. Patient does use home oxygen therapy via nasal cannula and presents to the emergency department with 97% oxygenation on 2 L nasal cannula. Patient states he has no pain whatsoever. Patient also states he has not been eating or drinking well as did his family. Timing/Duration: day(s) Severity: mild Associated Symptoms: fever, weakness Allergies/Adverse Reactions: morphine Allergy (Verified 05/09/21 13:00) unknown rx Home Medications: Aspirin 81 mg PO DAILY 04/12/14 [History] Lorazepam 0.5 mg [Ativan 0.5 MG] 0.5 mg PO HS 04/12/14 [History] Multivitamin [Multi-Vitamin Daily] 1 each PO DAILY 04/12/14 [History] Rabeprazole Sodium [Aciphex] 20 mg PO DAILY 04/12/14 [History] Fluticasone/Vilanterol [Breo Ellipta 100-25 Mcg INH] 1 puff IH DAILY 11/07/19 [History] Gabapentin 300 mg PO DAILY 11/07/19 [History] Ipratropium/Albuterol Sulfate [Combivent Inhaler] 1 puff IH TID 11/07/19 [History] [place]-3/Dha/Epa/Fish Oil [[place] 3 500 Softgel] 1 cap PO DAILY 11/07/19 [History] Tamsulosin HCl 0.4 mg [Flomax 0.4 MG] 1 cap PO HS 11/07/19 [History] Vit B Comp/C/Folic/Iron/Vit E [Vitamin B Complex Tablet] 0.5 tab PO DAILY 11/07/19 [History] Carboxymethylcellulose Sodium [Thera Tears] 2 drops OP Q4HPRN PRN 11/09/19 [History] Hx Tetanus, Diphtheria Vaccination/Date Given: Yes Hx Influenza Vaccination/Date Given: Yes Hx Pneumococcal Vaccination/Date Given: Yes Travel Risk - International Travel Have you traveled outside of the country in past 3 weeks: No - Coronavirus Screening Are you exhibiting any of the following symptoms?: No Close contact with a COVID-19 positive Pt in past 14-21 Days: No - Review of Systems Constitutional: Weakness Eyes: No Symptoms Ears, Nose, & Throat: No Symptoms Respiratory: No Symptoms Cardiac: No Symptoms Abdominal/Gastrointestinal: No Symptoms Genitourinary Symptoms: No Symptoms Musculoskeletal: No Symptoms Skin: No Symptoms Neurological: No Symptoms Psychological: No Symptoms Endocrine: No Symptoms Hematologic/Lymphatic: No Symptoms Immunological/Allergic: No Symptoms All Other Systems: Reviewed and Negative - Past Medical History Pertinent Past Medical History: Yes Neurological History: No Pertinent History ENT History: No Pertinent History Cardiac History: No Pertinent History, Other Respiratory History: Bronchitis, COPD, Other Endocrine Medical History: No Pertinent History Musculoskeletal History: Osteoarthritis, Other GI Medical History: Hernia History: No Pertinent History Psycho-Social History: No Pertinent History Male Reproductive Disorders: No Pertinent History Other Medical History: heart murmur, Rheumatic fever - Past Surgical History Past Surgical History: Yes Neuro Surgical History: No Pertinent History Cardiac: No Pertinent History Respiratory: Other Gastrointestinal: Hernia Repair Genitourinary: No Pertinent History Musculoskeletal: No Pertinent History Male Surgical History: Prostate Surgery, Testicular Surgery Other Surgical History: sinus surgery - Social History Smoking Status: Former smoker How long have you smoked: 4 years Exposure to second hand smoke: No Drug Use: none Patient Lives Alone: No - Nursing Vital Signs Nursing Vital Signs: Initial Vital Signs O2 Sat by Pulse Oximetry 97 05/09/21 12:51 Pain Scale Pain Intensity 0 - Physical Exam General Appearance: no apparent distress, alert Eye Exam: PERRL/EOMI, eyes nml inspection Ears, Nose, Throat Exam: normal ENT inspection, dry mucous membranes Neck Exam: normal inspection, non-tender, supple, full range of motion Respiratory Exam: normal breath sounds, lungs clear, airway intact, No chest tenderness, No respiratory distress Cardiovascular Exam: tachycardia Gastrointestinal/Abdomen Exam: soft, normal bowel sounds, No tenderness (Mild), No guarding, No rebound Rectal Exam: not done Back Exam: normal inspection, normal range of motion, No CVA tenderness, No vertebral tenderness Extremity Exam: normal inspection, normal range of motion, pelvis stable Neurologic Exam: alert, oriented x 3, cooperative, 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 as tested, normal mood/affect, nml cerebellar function, nml station & gait, sensation nml Skin Exam: normal color, warm, dry Lymphatic Exam: No adenopathy SpO2 Interpretation: normal O2 Delivery: Room Air Ordered Tests: Active Orders 24 hr Category Date Time Status EKG-ER Only STAT Care 05/09/21 13:14 Active IV Insertion STAT Care 05/09/21 13:14 Active Isolation, Initiate & Maintain STAT Care 05/09/21 13:14 Active Oxygen-ED Only Nasal Cannula 2 lpm Care 05/09/21 13:14 Active Pulse Oximetry (ED) STAT Care 05/09/21 13:14 Active CHEST 1 VIEW (PORTABLE) Stat Exams 05/09/21 13:15 Completed CHEST WITH CONTRAST [CT] Stat Exams 05/09/21 14:52 Completed BLOOD CULTURE Stat Lab 05/09/21 13:50 Received CBC W DIFF Stat Lab 05/09/21 13:14 Completed CMP Stat Lab 05/09/21 13:14 Completed D-DIMER QUANTITATIVE Stat Lab 05/09/21 13:14 Completed Ferritin Stat Lab 05/09/21 13:14 Completed INFLUENZA A+B TOMASZ Stat Lab 05/09/21 13:50 Completed LDH-LACTATE DEHYDROGENASE Stat Lab 05/09/21 13:14 Completed Lactic Acid Stat Lab 05/09/21 13:[address] [place] Screen Stat Lab 05/09/21 13:00 Completed NT PRO BNP Stat Lab 05/09/21 13:14 Completed TROPONIN Q3H Lab 05/09/21 13:30 Completed TROPONIN Q3H Lab 05/09/21 16:30 Completed TROPONIN Q3H Lab 05/09/21 18:30 Received TROPONIN Q3H Lab 05/09/21 22:30 Ordered TROPONIN Q3H Lab 05/10/21 01:30 Ordered UA W/RFX UR CULTURE Stat Lab 05/09/21 14:38 Completed Transfer Order Routine Transfer 05/09/21 Ordered Medication Summary Discontinued Medications Generic Name Dose Route Start Last Admin Trade Name Freq PRN Reason Stop Dose Admin Acetaminophen 325 mg 05/09/21 13:42 05/09/21 13:55 Acetaminophen 325 Mg Tablet PO 05/09/21 13:43 325 mg STAT STA Administration Acetaminophen Confirm 05/09/21 13:44 Acetaminophen 325 Mg Tablet Administered 05/09/21 13:45 Dose 325 mg .ROUTE .STK-MED ONE Sodium Chloride 1,000 mls @ 999 mls/hr 05/09/21 13:14 05/09/21 16:14 Sodium Chloride 0.9% 1000 Ml IV 05/09/21 14:14 Infused .Q1H1M STA Infusion Sodium Chloride Confirm 05/09/21 13:41 Sodium Chloride 0.9% 1000 Ml Administered 05/09/21 13:42 Dose 1,000 mls @ ud .ROUTE .STK-MED ONE Ceftriaxone Sodium/Dextrose 1 g in 50 mls @ 100 mls/hr 05/09/21 14:53 05/09/21 16:14 Rocephin 1 Gm-D5w 50 Ml Bag IV 05/09/21 15:22 Infused STAT STA Infusion Ceftriaxone Sodium/Dextrose Confirm 05/09/21 14:56 Rocephin 1 Gm-D5w 50 Ml Bag Administered 05/09/21 14:57 Dose 1 g in 50 mls @ ud IV .STK-MED ONE Lab/Rad Data: Laboratory Result Diagrams 05/09/21 13:14 05/09/21 13:14 Laboratory Results 05/09/21 05/09/21 05/09/21 Range/Units 16:30 15:16 14:38 WBC (4.0-10.5) K/mm3 RBC (4.1-5.6) M/mm3 Hgb (12.5-18.0) gm/dl Hct (42-50) % MCV (78-100) fl MCH (26-32) pg MCHC (32-36) g/dl RDW (11.5-14.0) % Plt Count (150-450) K/mm3 MPV (7.5-11.0) fl Gran % (36.0-66.0) % Eos # (Auto) (0-0.5) Absolute Lymphs (auto) (1.0-4.6) Absolute Monos (auto) (0.0-1.3) Lymphocytes % (24.0-44.0) % Monocytes % (0.0-12.0) % Eosinophils % (0.00-5.0) % Basophils % (0.0-0.4) % Absolute Granulocytes (1.4-6.9) Basophils # (0-0.4) D-Dimer (215-500) ng/mL Sodium (137-145) mmol/L Potassium (3.5-5.1) mmol/L Chloride (98-107) mmol/L Carbon Dioxide (22-30) mmol/L Anion Gap (5-15) MEQ/L BUN (9-20) mg/dL Creatinine (0.66-1.25) mg/dL Estimated GFR ML/MIN Glucose (74-106) mg/dL Lactic Acid (0.4-2.0) Calcium (8.4-10.2) mg/dL Ferritin (17.9-464) ng/mL Total Bilirubin (0.2-1.3) mg/dL AST (17-59) U/L ALT (0-50) U/L Alkaline Phosphatase (38-126) U/L Lactate Dehydrogenase (120-246) U/L Troponin I < 0.012 (0.000-0.034) ng/mL NT-Pro-B Natriuret Pep (0-1800) pg/mL Serum Total Protein (6.3-8.2) g/dL Albumin (3.5-5.0) g/dL Urine Color YELLOW (YELLOW) Urine Appearance CLEAR (CLEAR) Urine pH 8.0 (5-6) Ur Specific [place] 1.013 (1.005-1.025) Urine Protein NEGATIVE (Negative) Urine Ketones NEGATIVE (NEGATIVE) Urine Blood NEGATIVE (0-5) Tino/ul Urine Nitrite NEGATIVE (NEGATIVE) Urine Bilirubin NEGATIVE (NEGATIVE) Urine Urobilinogen NEGATIVE (0-1) mg/dL Ur Leukocyte Esterase NEGATIVE (NEGATIVE) Urine WBC (Auto) NONE (0-5) /HPF Urine RBC (Auto) NONE (0-2) /HPF Urine Mucus (Auto) SLIGHT (NEGATIVE) /HPF Urine Culture Reflexed NO (NO) Urine Glucose NEGATIVE (NEGATIVE) mg/dL Monoscreen (Negative) Influenza Type A Ag (NEGATIVE) Influenza Type B Ag (NEGATIVE) SARS-CoV-2 (PCR) NEGATIVE (NEGATIVE) Group A Strep Antibody (NEGATIVE) 05/09/21 05/09/21 05/09/21 Range/Units 13:50 13:50 13:30 WBC (4.0-10.5) K/mm3 RBC (4.1-5.6) M/mm3 Hgb (12.5-18.0) gm/dl Hct (42-50) % MCV (78-100) fl MCH (26-32) pg MCHC (32-36) g/dl RDW (11.5-14.0) % Plt Count (150-450) K/mm3 MPV (7.5-11.0) fl Gran % (36.0-66.0) % Eos # (Auto) (0-0.5) Absolute Lymphs (auto) (1.0-4.6) Absolute Monos (auto) (0.0-1.3) Lymphocytes % (24.0-44.0) % Monocytes % (0.0-12.0) % Eosinophils % (0.00-5.0) % Basophils % (0.0-0.4) % Absolute Granulocytes (1.4-6.9) Basophils # (0-0.4) D-Dimer (215-500) ng/mL Sodium (137-145) mmol/L Potassium (3.5-5.1) mmol/L Chloride (98-107) mmol/L Carbon Dioxide (22-30) mmol/L Anion Gap (5-15) MEQ/L BUN (9-20) mg/dL Creatinine (0.66-1.25) mg/dL Estimated GFR ML/MIN Glucose (74-106) mg/dL Lactic Acid (0.4-2.0) Calcium (8.4-10.2) mg/dL Ferritin (17.9-464) ng/mL Total Bilirubin (0.2-1.3) mg/dL AST (17-59) U/L ALT (0-50) U/L Alkaline Phosphatase (38-126) U/L Lactate Dehydrogenase (120-246) U/L Troponin I < 0.012 (0.000-0.034) ng/mL NT-Pro-B Natriuret Pep (0-1800) pg/mL Serum Total Protein (6.3-8.2) g/dL Albumin (3.5-5.0) g/dL Urine Color (YELLOW) Urine Appearance (CLEAR) Urine pH (5-6) Ur Specific [place] (1.005-1.025) Urine Protein (Negative) Urine Ketones (NEGATIVE) Urine Blood (0-5) Tino/ul Urine Nitrite (NEGATIVE) Urine Bilirubin (NEGATIVE) Urine Urobilinogen (0-1) mg/dL Ur Leukocyte Esterase (NEGATIVE) Urine WBC (Auto) (0-5) /HPF Urine RBC (Auto) (0-2) /HPF Urine Mucus (Auto) (NEGATIVE) /HPF Urine Culture Reflexed (NO) Urine Glucose (NEGATIVE) mg/dL Monoscreen (Negative) Influenza Type A Ag NEGATIVE (NEGATIVE) Influenza Type B Ag NEGATIVE (NEGATIVE) SARS-CoV-2 (PCR) (NEGATIVE) Group A Strep Antibody NOT DETECTED (NEGATIVE) 05/09/21 05/09/21 05/09/21 Range/Units 13:14 13:14 13:14 WBC (4.0-10.5) K/mm3 RBC (4.1-5.6) M/mm3 Hgb (12.5-18.0) gm/dl Hct (42-50) % MCV (78-100) fl MCH (26-32) pg MCHC (32-36) g/dl RDW (11.5-14.0) % Plt Count (150-450) K/mm3 MPV (7.5-11.0) fl Gran % (36.0-66.0) % Eos # (Auto) (0-0.5) Absolute Lymphs (auto) (1.0-4.6) Absolute Monos (auto) (0.0-1.3) Lymphocytes % (24.0-44.0) % Monocytes % (0.0-12.0) % Eosinophils % (0.00-5.0) % Basophils % (0.0-0.4) % Absolute Granulocytes (1.4-6.9) Basophils # (0-0.4) D-Dimer 1032 H* (215-500) ng/mL Sodium 137 (137-145) mmol/L Potassium 3.8 (3.5-5.1) mmol/L Chloride 99 (98-107) mmol/L Carbon Dioxide 27 (22-30) mmol/L Anion Gap 15.4 H (5-15) MEQ/L BUN 12 (9-20) mg/dL Creatinine 0.64 L (0.66-1.25) mg/dL Estimated GFR > 60.0 ML/MIN Glucose 99 (74-106) mg/dL Lactic Acid (0.4-2.0) Calcium 9.1 (8.4-10.2) mg/dL Ferritin 28.3 (17.9-464) ng/mL Total Bilirubin 1.50 H (0.2-1.3) mg/dL AST 24 (17-59) U/L ALT 11 (0-50) U/L Alkaline Phosphatase 67 (38-126) U/L Lactate Dehydrogenase 138 (120-246) U/L Troponin I (0.000-0.034) ng/mL NT-Pro-B Natriuret Pep 546 (0-1800) pg/mL Serum Total Protein 7.7 (6.3-8.2) g/dL Albumin 4.4 (3.5-5.0) g/dL Urine Color (YELLOW) Urine Appearance (CLEAR) Urine pH (5-6) Ur Specific [place] (1.005-1.025) Urine Protein (Negative) Urine Ketones (NEGATIVE) Urine Blood (0-5) Tino/ul Urine Nitrite (NEGATIVE) Urine Bilirubin (NEGATIVE) Urine Urobilinogen (0-1) mg/dL Ur Leukocyte Esterase (NEGATIVE) Urine WBC (Auto) (0-5) /HPF Urine RBC (Auto) (0-2) /HPF Urine Mucus (Auto) (NEGATIVE) /HPF Urine Culture Reflexed (NO) Urine Glucose (NEGATIVE) mg/dL Monoscreen (Negative) Influenza Type A Ag (NEGATIVE) Influenza Type B Ag (NEGATIVE) SARS-CoV-2 (PCR) (NEGATIVE) Group A Strep Antibody (NEGATIVE) 05/09/21 05/09/21 05/09/21 Range/Units 13:14 13:14 13:00 WBC 9.0 (4.0-10.5) K/mm3 RBC 4.45 (4.1-5.6) M/mm3 Hgb 13.0 (12.5-18.0) gm/dl Hct 41.0 L (42-50) % MCV 92.1 (78-100) fl MCH 29.2 (26-32) pg MCHC 31.7 L (32-36) g/dl RDW 14.8 H (11.5-14.0) % Plt Count 178 (150-450) K/mm3 MPV 9.4 (7.5-11.0) fl Gran % 86.6 H (36.0-66.0) % Eos # (Auto) 0.05 (0-0.5) Absolute Lymphs (auto) 0.60 L (1.0-4.6) Absolute Monos (auto) 0.53 (0.0-1.3) Lymphocytes % 6.7 L (24.0-44.0) % Monocytes % 5.9 (0.0-12.0) % Eosinophils % 0.6 (0.00-5.0) % Basophils % 0.2 (0.0-0.4) % Absolute Granulocytes 7.82 H (1.4-6.9) Basophils # 0.02 (0-0.4) D-Dimer (215-500) ng/mL Sodium (137-145) mmol/L Potassium (3.5-5.1) mmol/L Chloride (98-107) mmol/L Carbon Dioxide (22-30) mmol/L Anion Gap (5-15) MEQ/L BUN (9-20) mg/dL Creatinine (0.66-1.25) mg/dL Estimated GFR ML/MIN Glucose (74-106) mg/dL Lactic Acid 1.6 (0.4-2.0) Calcium (8.4-10.2) mg/dL Ferritin (17.9-464) ng/mL Total Bilirubin (0.2-1.3) mg/dL AST (17-59) U/L ALT (0-50) U/L Alkaline Phosphatase (38-126) U/L Lactate Dehydrogenase (120-246) U/L Troponin I (0.000-0.034) ng/mL NT-Pro-B Natriuret Pep (0-1800) pg/mL Serum Total Protein (6.3-8.2) g/dL Albumin (3.5-5.0) g/dL Urine Color (YELLOW) Urine Appearance (CLEAR) Urine pH (5-6) Ur Specific [place] (1.005-1.025) Urine Protein (Negative) Urine Ketones (NEGATIVE) Urine Blood (0-5) Tino/ul Urine Nitrite (NEGATIVE) Urine Bilirubin (NEGATIVE) Urine Urobilinogen (0-1) mg/dL Ur Leukocyte Esterase (NEGATIVE) Urine WBC (Auto) (0-5) /HPF Urine RBC (Auto) (0-2) /HPF Urine Mucus (Auto) (NEGATIVE) /HPF Urine Culture Reflexed (NO) Urine Glucose (NEGATIVE) mg/dL Monoscreen NEGATIVE (Negative) Influenza Type A Ag (NEGATIVE) Influenza Type B Ag (NEGATIVE) SARS-CoV-2 (PCR) (NEGATIVE) Group A Strep Antibody (NEGATIVE) - Progress Progress: improved, re-examined Progress Note: 05/09/21 15:01 Chest x-ray performed today shows a new diffuse left lung and right infrahilar hazy interstitial alveolar opacities without consolidation or effusions. 05/09/21 15:01 Medical decision making: This patient has at least bilateral pneumonias. This will account for his fever, weakness and decreased appetite. His troponin is normal. However, his D-dimer is elevated and we will be performing a CAT scan of the chest with contrast to evaluate for pulmonary emboli. Likely it is elevated because of the pneumonia/lung infection. I spoke with Dr. Mckinney, the patient's primary care physician. He agrees that we should admit him in the hospital, check his COVID-19 status and if this is negative we will continue intravenous antibiotics. If it is positive we will contact the Covid 19 hospitalist and admit him to that service with the appropriate admission orders. 05/09/21 18:48 CAT scan of the chest with contrast shows no pulmonary embolus. There is new right middle lobe spiculated mass like opacity concerning for malignancy. There is new bilateral airspace disease. Discussed with : Gus Counseled pt/family regarding: lab results, diagnosis, need for follow-up, rad results - Departure Departure Disposition: In-patient Admission Clinical Impression: Bilateral pulmonary infiltrates on chest x-ray, Mass of right lung Condition: Fair Critical Care Time: No Referrals: JAVIER MCKINNEY MD [Primary Care Provider] -
[2021-05-09] MEDS ORDERED: Sodium Chloride 0.9% 1000 ML 1,000 ML IV STA (13:14)
[2021-05-09 13:34] LABS: Absolute Neutrophil Ct (ANC) 7.82 (1.4-6.9); BASOPHIL % 0.2 % (0.0-0.4); Basophil (Absolute #) 0.02 (0-0.4); Eosinophil % 0.6 % (0.00-5.0); Eosinophil (Absolute #) 0.05 (0-0.5); Lymphocytes % 6.7 % (24.0-44.0); Mean Cell Volume 92.1 fl (78-100); Mean Corpuscular Hemoglobin 29.2 pg (26-32); Mean Corpuscular Hgb Concent. 31.7 g/dl (32-36); Mean Platelet Volume 9.4 fl (7.5-11.0); Monocyte (Absolute #) 0.53 (0.0-1.3); Monocytes % 5.9 % (0.0-12.0); Neutrophil % 86.6 % (36.0-66.0); Platelet Count 178 K/mm3 (150-450); Red Blood Count 4.45 M/mm3 (4.1-5.6); Red Cell Distribution Width 14.8 % (11.5-14.0)
[2021-05-09] MEDS ORDERED: Sodium Chloride 0.9% 1000 ML 1,000 ML ONE (13:41)
[2021-05-09] MEDS ORDERED: TYLENOL 325 MG PO STA (13:42)
[2021-05-09] MEDS ORDERED: TYLENOL 325 MG ONE (13:44)
--- NOTE | 2021-05-09 13:48 | XRAY ---
Indication: Fever. Comparison: January 28, 2021. 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 New diffuse left lung and right infrahilar hazy interstitial alveolar opacity without consolidation/large effusion. Heart not enlarged. Bony thorax intact again with osteopenia and degenerative changes.
[2021-05-09 13:50] LABS: ALBUMIN 4.4 g/dL (3.5-5.0); ALKALINE PHOSPHATASE 67 U/L (38-126); ANION GAP 15.4 MEQ/L (5-15); BLOOD UREA NITROGEN 12 mg/dL (9-20); CHLORIDE 99 mmol/L (98-107); Calcium 9.1 mg/dL (8.4-10.2); Carbon Dioxide 27 mmol/L (22-30); Creatinine 1 0.64 mg/dL (0.66-1.25); EST GLOMERULAR FILTRATION RATE > 60.0 ML/MIN; Glucose 99 mg/dL (74-106); LDH-LACTATE DEHYDROGENASE 138 U/L (120-246); NT PRO BNP 546 pg/mL (0-1800); Potassium 3.8 mmol/L (3.5-5.1); SGOT/AST 24 U/L (17-59); SGPT/ALT 11 U/L (0-50); SODIUM 137 mmol/L (137-145); Total Protein 7.7 g/dL (6.3-8.2)
[2021-05-09 14:27] LABS: INFLUENZA A NEGATIVE (NEGATIVE); INFLUENZA B NEGATIVE (NEGATIVE)
[2021-05-09 14:45] LABS: Appearance CLEAR (CLEAR); Bilirubin NEGATIVE (NEGATIVE); Blood NEGATIVE Ery/ul (0-5); Glucose NEGATIVE (NEGATIVE); Ketones NEGATIVE (NEGATIVE); Leukocyte Esterase NEGATIVE (NEGATIVE); Mucus SLIGHT /HPF (NEGATIVE); Nitrite NEGATIVE (NEGATIVE); Protein,Urine Dip NEGATIVE (Negative); Specific Gravity 1.013 (1.005-1.025); Urobilinogen NEGATIVE mg/dL (0-1)
[2021-05-09] MEDS ORDERED: ROCEPHIN 1 Gm-D5w 50 ml Bag** 1 G/50 ML IVPB IV STA (14:53)
[2021-05-09] MEDS ORDERED: ROCEPHIN 1 Gm-D5w 50 ml Bag** 1 G/50 ML IVPB IV ONE (14:56)
--- NOTE | 2021-05-09 18:34 | XRAY ---
Indication: Hypoxia. Elevated d-dimer. Multiple contiguous axial images obtained through the chest using 100 cc Isovue 370 contrast and PE protocol. Comparison: September 25, 2015. There is good opacification of the pulmonary arteries to include the lobar and segmental branches. No pulmonary embolus. Heart not enlarged. Aorta again minimally arteriosclerotic without aneurysm/dissection. Stable tiny mediastinal and left hilar calcified nodes. No pathologic mediastinal/hilar lymphadenopathy. Lungs are again hyperinflated with new diffuse bilateral lower lobe and lesser degree posterior bilateral upper lobe airspace disease. Also new tiny bilateral pleural effusions. Inferior right middle lobe demonstrates new 1.9 x 2.2 x 0.9 cm spiculated masslike opacity. There remains a few scattered tiny calcified granulomas. Bony thorax intact again with osteopenia and flowing osteophytes throughout the spine. Limited upper abdomen again demonstrates tiny splenic calcified granulomas. New diffuse fatty liver. Impression: 1. Negative pulmonary embolus. 2. New bilateral airspace disease with new tiny bilateral effusions as detailed. 3. New right middle lobe spiculated masslike opacity. Malignancy is of primary concern. 4. New fatty liver.
[2021-05-09] MEDS ORDERED: TYLENOL 325 MG PO PRN (20:11)
[2021-05-09] MEDS ORDERED: Zofran 4 MG/2 ML VIAL IV PRN (20:11)
[2021-05-09] MEDS: Sodium Chloride 0.9% 1000 ML 1,000 ML IV SCH (20:32)
[2021-05-09] MEDS ORDERED: DUONEB 0.5-3 MG/3 ml Neb IH ONE (20:43)
[2021-05-09] MEDS: DUONEB 0.5-3 MG/3 ml Neb IH SCH (20:45)
[2021-05-09] MEDS ORDERED: NORCO 7.5/325 MG TAB PO PRN (22:43)
[2021-05-09] MEDS ORDERED: Ativan 0.5 MG PO SCH (23:00)
[2021-05-09] MEDS: NEURONTIN 300 MG PO SCH (23:39)
[2021-05-09] MEDS: Zocor 10MG PO SCH (23:39)
[2021-05-10] MEDS: DUONEB 0.5-3 MG/3 ml Neb IH SCH ×4 (04:37→18:58)
[2021-05-10 06:04] LABS: Absolute Neutrophil Ct (ANC) 9.42 (1.4-6.9); BASOPHIL % 0.2 % (0.0-0.4); Basophil (Absolute #) 0.02 (0-0.4); Eosinophil % 1.4 % (0.00-5.0); Eosinophil (Absolute #) 0.17 (0-0.5); Hematocrit 36.4 % (42-50); Hemoglobin 11.4 gm/dl (12.5-18.0); Lymphocytes % 12.3 % (24.0-44.0); Mean Cell Volume 92.4 fl (78-100); Mean Corpuscular Hemoglobin 28.9 pg (26-32); Mean Corpuscular Hgb Concent. 31.3 g/dl (32-36); Mean Platelet Volume 8.9 fl (7.5-11.0); Monocyte (Absolute #) 1.12 (0.0-1.3); Monocytes % 9.2 % (0.0-12.0); Neutrophil % 76.9 % (36.0-66.0); Platelet Count 167 K/mm3 (150-450); Red Blood Count 3.94 M/mm3 (4.1-5.6); Red Cell Distribution Width 14.8 % (11.5-14.0); White Blood Count 12.2 K/mm3 (4.0-10.5)
[2021-05-10] MEDS ORDERED: DUONEB 0.5-3 MG/3 ml Neb IH ONE (06:46)
[2021-05-10 06:47] LABS: ALBUMIN 3.6 g/dL (3.5-5.0); ALKALINE PHOSPHATASE 54 U/L (38-126); ANION GAP 11.7 MEQ/L (5-15); BLOOD UREA NITROGEN 11 mg/dL (9-20); CHLORIDE 100 mmol/L (98-107); Calcium 8.7 mg/dL (8.4-10.2); Carbon Dioxide 26 mmol/L (22-30); Creatinine 1 0.56 mg/dL (0.66-1.25); EST GLOMERULAR FILTRATION RATE > 60.0 ML/MIN; Glucose 98 mg/dL (74-106); Potassium 3.8 mmol/L (3.5-5.1); SGOT/AST 24 U/L (17-59); SGPT/ALT 11 U/L (0-50); SODIUM 134 mmol/L (137-145); Total Protein 6.5 g/dL (6.3-8.2)
[2021-05-10] MEDS ORDERED: NON-FORMULARY ITEM (Carboxymethylcellulose Sodium [Thera Tears] 30 ML Drops) OP PRN (08:44)
[2021-05-10] MEDS ORDERED: DHA PO SCH (08:45)
[2021-05-10] MEDS ORDERED: FISH OIL PO SCH (08:45)
[2021-05-10] MEDS ORDERED: OMEGA PO SCH (08:45)
[2021-05-10] MEDS ORDERED: NON-FORMULARY ITEM (Multivitamin [Multi-Vitamin Daily] 1 EACH Tablet) PO SCH (08:45)
[2021-05-10] MEDS ORDERED: EPA PO SCH (08:45)
[2021-05-10] MEDS ORDERED: Artificial Tears 15 ML OP PRN (09:17)
[2021-05-10] MEDS ORDERED: Flomax 0.4 MG PO SCH (10:00)
[2021-05-10] MEDS ORDERED: VITA-BEE WITH C PO SCH (10:00)
[2021-05-10] MEDS ORDERED: Zithromax 500 MG/ 250 ML NaCl Premix 500 MG/250 ML IVPB IV SCH (10:00)
[2021-05-10] MEDS ORDERED: [UNRECOGNIZED DRUG - OTHER] PO SCH (10:00)
[2021-05-10] MEDS ORDERED: VIT B COMP PO SCH (10:00)
[2021-05-10] MEDS ORDERED: ROCEPHIN 1 Gm-D5w 50 ml Bag** 1 G/50 ML IVPB IV SCH (10:00)
[2021-05-10] MEDS ORDERED: FOLIC PO SCH (10:00)
[2021-05-10] MEDS ORDERED: IRON PO SCH (10:00)
[2021-05-10] MEDS ORDERED: VIT E PO SCH (10:00)
[2021-05-10] MEDS ORDERED: NON-FORMULARY ITEM (Fluticasone/Vilanterol [Breo Ellipta 100-25 Mcg Inh] 1 EACH Blst.W.Dev IH SCH (10:00)
[2021-05-10] MEDS: NEURONTIN 300 MG PO SCH ×3 (10:07→20:59)
[2021-05-10] MEDS: Protonix 40MG Tablet PO SCH ×2 (10:07→20:59)
[2021-05-10] MEDS ORDERED: ECOTRIN 81 MG PO SCH (12:00)
[2021-05-10] MEDS ORDERED: NON-FORMULARY ITEM (Aspirin [Aspirin] 81 MG Tablet) PO SCH (12:00)
[2021-05-10] MEDS: Advair Hfa 115/21 Common canister IH SCH ×2 (12:38→18:58)
--- NOTE | 2021-05-10 13:48 | PCM.HP ---
History of Present Illness - Chief Complaint Chief Complaint: pneumonia History of Present Illness: is a 85 year old male pt of Dr. Morris with BPH, COPD, hyperlipidemia, and moderate dementia who was admitted through ER yesterday with pneumonia and RML mass. He was feeling fine until yesterday when he started having chills and asked to be taken to the ER (which is very unusual for him). He denies cough, CP, or SOB. Does c/o weight loss of about 20 lb over the past 6 mo. He had fever to 102.1 in the ER. CXR with COPD and new diffuse L and R infrahilar hazy interstitial alveolar opcities w/o consolidation or large effusion. CT chest (after d-dimer was 1032) showed bilat airspace dz, with new right middle lobe spiculated masslike opacity. He was started on zithromax and rocephin. Feeling well today. Would like to go home. - Review of Systems Constitutional: Fever, Chills, Weight Loss All Other Systems: Reviewed and Negative Medications & Allergies Home Medications: Home Medication List Aspirin 81 mg PO LUNCH 04/12/14 [History Confirmed 05/09/21] Lorazepam 0.5 mg [Ativan 0.5 MG] 0.5 mg PO BID 04/12/14 [History Confirmed 05/09/21] Multivitamin [Multi-Vitamin Daily] 1 each PO 3XW 04/12/14 [History Confirmed 05/09/21] Rabeprazole Sodium [Aciphex] 20 mg PO BID 04/12/14 [History Confirmed 05/09/21] Fluticasone/Vilanterol [Breo Ellipta 100-25 Mcg INH] 1 puff IH DAILY 11/07/19 [History Confirmed 05/09/21] Gabapentin 300 mg PO TID 11/07/19 [History Confirmed 05/09/21] Ipratropium/Albuterol Sulfate [Combivent Inhaler] 1 puff IH TID 11/07/19 [History Confirmed 05/09/21] [place]-3/Dha/Epa/Fish Oil [[place] 3 500 Softgel] 1 cap PO 3XW 11/07/19 [History Confirmed 05/09/21] Tamsulosin HCl 0.4 mg [Flomax 0.4 MG] 1 cap PO DAILY 11/07/19 [History Confirmed 05/09/21] Vit B Comp/C/Folic/Iron/Vit E [Vitamin B Complex Tablet] 0.5 tab PO DAILY 11/07/19 [History Confirmed 05/09/21] Albuterol 2.5 mg/3 ml Neb [Proventil 2.5 mg/3 ml Neb] 6 ml IH BID 05/09/21 [History Confirmed 05/09/21] Atorvastatin Calcium [Lipitor] 10 mg PO HS 05/09/21 [History Confirmed 05/09/21] Carboxymethylcellulose Sodium [Thera Tears] 2 drops OP Q2H/PRN PRN 05/09/21 [History Confirmed 05/09/21] Hydrocodone/Acetaminophen [Hydrocodone-Acetamin 7.5-325] 1 tab PO Q8H PRN 05/09/21 [History Confirmed 05/09/21] Omeprazole 40 mg PO LUNCH 05/09/21 [History Confirmed 05/09/21] Allergies/Adverse Reactions: Allergies Allergy/AdvReac Type Severity Reaction Status Date / Time morphine Allergy Verified 05/09/21 13:00 - Past Medical History Past Medical History: Yes Neurological History: No Pertinent History ENT History: No Pertinent History Cardiac History: No Pertinent History, Other Respiratory History: Bronchitis, COPD, Pneumonia, Other Endocrine Medical History: No Pertinent History Musculoskelatal History: Osteoarthritis, Other GI Medical History: Hernia History: No Pertinent History Pyscho-Social History: No Pertinent History Male Reproductive Disorders: Prostate Problems Comment: heart murmur, Rheumatic fever - Past Surgical History Past Surgical History: Yes Neuro Surgical History: No Pertinent History Cardiac History: No Pertinent History Respiratory Surgery: Other GI Surgical History: Hernia Repair Genitourinary Surgical Hx: No Pertinent History Musculskeletal Surgical Hx: No Pertinent History Male Surgical History: Prostate Surgery, Testicular Surgery Other Surgical History: sinus surgery - Social History Smoking Status: Former smoker How long have you smoked: 4 years Exposure to second hand smoke: No Alcohol: Rarely Drug Use: none - Physical Exam Vital Signs: Vital Signs - 24 hr Temp Pulse Resp BP Pulse Ox 05/10/21 12:41 92 H 18 94 L 05/10/21 12:00 98 F 97 H 18 122/84 96 05/10/21 07:23 98.6 F 73 20 146/69 92 L 10/30/21 07:07 95 H 20 92 L 05/10/21 03:43 98.2 F 84 19 135/85 99 05/10/21 00:00 98.6 F 88 18 129/79 94 L 05/09/21 20:47 99.1 F 78 18 152/78 98 05/09/21 20:45 79 18 96 05/09/21 18:00 82 18 141/73 99 05/09/21 15:10 99.9 F 106 H 16 138/99 97 05/09/21 14:58 105 H 16 140/90 98 General Appearance: no apparent distress, alert Neurologic Exam: oriented x 3, cooperative Eye Exam: eyes nml inspection Ears, Nose, Throat Exam: moist mucous membranes Neck Exam: normal inspection, non-tender, No lymphadenopathy Respiratory Exam: normal breath sounds, lungs clear, No crackles/rales, No rhonchi, No wheezing Cardiovascular Exam: regular rate/rhythm, normal heart sounds, No murmur Gastrointestinal/Abdomen Exam: soft, normal bowel sounds, No tenderness, No distention, No mass, No guarding, No rebound Back Exam: normal inspection, No CVA tenderness, No rash Extremity Exam: normal inspection, No pedal edema, No swelling Skin Exam: normal color, warm, dry, No rash Results - Labs Lab/Micro Results: Lab Results-Last 24 Hours 05/09/21 05/09/21 05/09/21 Range/Units 13:00 13:14 13:14 WBC (4.0-10.5) K/mm3 RBC (4.1-5.6) M/mm3 Hgb (12.5-18.0) gm/dl Hct (42-50) % MCV (78-100) fl MCH (26-32) pg MCHC (32-36) g/dl RDW (11.5-14.0) % Plt Count (150-450) K/mm3 MPV (7.5-11.0) fl Gran % (36.0-66.0) % Eos # (Auto) (0-0.5) Absolute Lymphs (auto) (1.0-4.6) Absolute Monos (auto) (0.0-1.3) Lymphocytes % (24.0-44.0) % Monocytes % (0.0-12.0) % Eosinophils % (0.00-5.0) % Basophils % (0.0-0.4) % Absolute Granulocytes (1.4-6.9) Basophils # (0-0.4) D-Dimer 1032 H* (215-500) ng/mL Sodium 137 (137-145) mmol/L Potassium 3.8 (3.5-5.1) mmol/L Chloride 99 (98-107) mmol/L Carbon Dioxide 27 (22-30) mmol/L Anion Gap 15.4 H (5-15) MEQ/L BUN 12 (9-20) mg/dL Creatinine 0.64 L (0.66-1.25) mg/dL Estimated GFR > 60.0 ML/MIN Glucose 99 (74-106) mg/dL Calcium 9.1 (8.4-10.2) mg/dL Ferritin (17.9-464) ng/mL Total Bilirubin 1.50 H (0.2-1.3) mg/dL AST 24 (17-59) U/L ALT 11 (0-50) U/L Alkaline Phosphatase 67 (38-126) U/L Lactate Dehydrogenase 138 (120-246) U/L Troponin I (0.000-0.034) ng/mL NT-Pro-B Natriuret Pep 546 (0-1800) pg/mL Serum Total Protein 7.7 (6.3-8.2) g/dL Albumin 4.4 (3.5-5.0) g/dL Urine Color (YELLOW) Urine Appearance (CLEAR) Urine pH (5-6) Ur Specific Hardy (1.005-1.025) Urine Protein (Negative) Urine Ketones (NEGATIVE) Urine Blood (0-5) Tino/ul Urine Nitrite (NEGATIVE) Urine Bilirubin (NEGATIVE) Urine Urobilinogen (0-1) mg/dL Ur Leukocyte Esterase (NEGATIVE) Urine WBC (Auto) (0-5) /HPF Urine RBC (Auto) (0-2) /HPF Urine Mucus (Auto) (NEGATIVE) /HPF Urine Culture Reflexed (NO) Urine Glucose (NEGATIVE) mg/dL Monoscreen NEGATIVE (Negative) Influenza Type A Ag (NEGATIVE) Influenza Type B Ag (NEGATIVE) SARS-CoV-2 (PCR) (NEGATIVE) Group A Strep Antibody (NEGATIVE) 05/09/21 05/09/2105/09/21 Range/Units 13:14 13:30 13:50 WBC (4.0-10.5) K/mm3 RBC (4.1-5.6) M/mm3 Hgb (12.5-18.0) gm/dl Hct (42-50) % MCV (78-100) fl MCH (26-32) pg MCHC (32-36) g/dl RDW (11.5-14.0) % Plt Count (150-450) K/mm3 MPV (7.5-11.0) fl Gran % (36.0-66.0) % Eos # (Auto) (0-0.5) Absolute Lymphs (auto) (1.0-4.6) Absolute Monos (auto) (0.0-1.3) Lymphocytes % (24.0-44.0) % Monocytes % (0.0-12.0) % Eosinophils % (0.00-5.0) % Basophils % (0.0-0.4) % Absolute Granulocytes (1.4-6.9) Basophils # (0-0.4) D-Dimer (215-500) ng/mL Sodium (137-145) mmol/L Potassium (3.5-5.1) mmol/L Chloride (98-107) mmol/L Carbon Dioxide (22-30) mmol/L Anion Gap (5-15) MEQ/L BUN (9-20) mg/dL Creatinine (0.66-1.25) mg/dL Estimated GFR ML/MIN Glucose (74-106) mg/dL Calcium (8.4-10.2) mg/dL Ferritin 28.3 (17.9-464) ng/mL Total Bilirubin (0.2-1.3) mg/dL AST (17-59) U/L ALT (0-50) U/L Alkaline Phosphatase (38-126) U/L Lactate Dehydrogenase (120-246) U/L Troponin I < 0.012 (0.000-0.034) ng/mL NT-Pro-B Natriuret Pep (0-1800) pg/mL Serum Total Protein (6.3-8.2) g/dL Albumin (3.5-5.0) g/dL Urine Color (YELLOW) Urine Appearance (CLEAR) Urine pH (5-6) Ur Specific Hardy (1.005-1.025) Urine Protein (Negative) Urine Ketones (NEGATIVE) Urine Blood (0-5) Tino/ul Urine Nitrite (NEGATIVE) Urine Bilirubin (NEGATIVE) Urine Urobilinogen (0-1) mg/dL Ur Leukocyte Esterase (NEGATIVE) Urine WBC (Auto) (0-5) /HPF Urine RBC (Auto) (0-2) /HPF Urine Mucus (Auto) (NEGATIVE) /HPF Urine Culture Reflexed (NO) Urine Glucose (NEGATIVE) mg/dL Monoscreen (Negative) Influenza Type A Ag NEGATIVE (NEGATIVE) Influenza Type B Ag NEGATIVE (NEGATIVE) SARS-CoV-2 (PCR) (NEGATIVE) Group A Strep Antibody (NEGATIVE) 05/09/21 05/09/21 05/09/21 Range/Units 13:50 14:38 15:16 WBC (4.0-10.5) K/mm3 RBC (4.1-5.6) M/mm3 Hgb (12.5-18.0) gm/dl Hct (42-50) % MCV (78-100) fl MCH (26-32) pg MCHC (32-36) g/dl RDW (11.5-14.0) % Plt Count (150-450) K/mm3 MPV (7.5-11.0) fl Gran % (36.0-66.0) % Eos # (Auto) (0-0.5) Absolute Lymphs (auto) (1.0-4.6) Absolute Monos (auto) (0.0-1.3) Lymphocytes % (24.0-44.0) % Monocytes % (0.0-12.0) % Eosinophils % (0.00-5.0) % Basophils % (0.0-0.4) % Absolute Granulocytes (1.4-6.9) Basophils # (0-0.4) D-Dimer (215-500) ng/mL Sodium (137-145) mmol/L Potassium (3.5-5.1) mmol/L Chloride (98-107) mmol/L Carbon Dioxide (22-30) mmol/L Anion Gap (5-15) MEQ/L BUN (9-20) mg/dL Creatinine (0.66-1.25) mg/dL Estimated GFR ML/MIN Glucose (74-106) mg/dL Calcium (8.4-10.2) mg/dL Ferritin (17.9-464) ng/mL Total Bilirubin (0.2-1.3) mg/dL AST (17-59) U/L ALT (0-50) U/L Alkaline Phosphatase (38-126) U/L Lactate Dehydrogenase (120-246) U/L Troponin I (0.000-0.034) ng/mL NT-Pro-B Natriuret Pep (0-1800) pg/mL Serum Total Protein (6.3-8.2) g/dL Albumin (3.5-5.0) g/dL Urine Color YELLOW (YELLOW) Urine Appearance CLEAR (CLEAR) Urine pH 8.0 (5-6) Ur Specific Hardy 1.013 (1.005-1.025) Urine Protein NEGATIVE (Negative) Urine Ketones NEGATIVE (NEGATIVE) Urine Blood NEGATIVE (0-5) Tino/ul Urine Nitrite NEGATIVE (NEGATIVE) Urine Bilirubin NEGATIVE (NEGATIVE) Urine Urobilinogen NEGATIVE (0-1) mg/dL Ur Leukocyte Esterase NEGATIVE (NEGATIVE) Urine WBC (Auto) NONE (0-5) /HPF Urine RBC (Auto) NONE (0-2) /HPF Urine Mucus (Auto) SLIGHT (NEGATIVE) /HPF Urine Culture Reflexed NO (NO) Urine Glucose NEGATIVE (NEGATIVE) mg/dL Monoscreen (Negative) Influenza Type A Ag (NEGATIVE) Influenza Type B Ag (NEGATIVE) SARS-CoV-2 (PCR) NEGATIVE (NEGATIVE) Group A Strep Antibody NOT DETECTED (NEGATIVE) 05/09/21 05/09/21 05/09/21 Range/Units 16:30 18:30 22:40 WBC (4.0-10.5) K/mm3 RBC (4.1-5.6) M/mm3 Hgb (12.5-18.0) gm/dl Hct (42-50) % MCV (78-100) fl MCH (26-32) pg MCHC (32-36) g/dl RDW (11.5-14.0) % Plt Count (150-450) K/mm3 MPV (7.5-11.0) fl Gran % (36.0-66.0) % Eos # (Auto) (0-0.5) Absolute Lymphs (auto) (1.0-4.6) Absolute Monos (auto) (0.0-1.3) Lymphocytes % (24.0-44.0) % Monocytes % (0.0-12.0) % Eosinophils % (0.00-5.0) % Basophils % (0.0-0.4) % Absolute Granulocytes (1.4-6.9) Basophils # (0-0.4) D-Dimer (215-500) ng/mL Sodium (137-145) mmol/L Potassium (3.5-5.1) mmol/L Chloride (98-107) mmol/L Carbon Dioxide (22-30) mmol/L Anion Gap (5-15) MEQ/L BUN (9-20) mg/dL Creatinine (0.66-1.25) mg/dL Estimated GFR ML/MIN Glucose (74-106) mg/dL Calcium (8.4-10.2) mg/dL Ferritin (17.9-464) ng/mL Total Bilirubin (0.2-1.3) mg/dL AST (17-59) U/L ALT (0-50) U/L Alkaline Phosphatase (38-126) U/L Lactate Dehydrogenase (120-246) U/L Troponin I < 0.012 < 0.012 < 0.012 (0.000-0.034) ng/mL NT-Pro-B Natriuret Pep (0-1800) pg/mL Serum Total Protein (6.3-8.2) g/dL Albumin (3.5-5.0) g/dL Urine Color (YELLOW) Urine Appearance (CLEAR) Urine pH (5-6) Ur Specific Hardy (1.005-1.025) Urine Protein (Negative) Urine Ketones (NEGATIVE) Urine Blood (0-5) Tino/ul Urine Nitrite (NEGATIVE) Urine Bilirubin (NEGATIVE) Urine Urobilinogen (0-1) mg/dL Ur Leukocyte Esterase (NEGATIVE) Urine WBC (Auto) (0-5) /HPF Urine RBC (Auto) (0-2) /HPF Urine Mucus (Auto) (NEGATIVE) /HPF Urine Culture Reflexed (NO) Urine Glucose (NEGATIVE) mg/dL Monoscreen (Negative) Influenza Type A Ag (NEGATIVE) Influenza Type B Ag (NEGATIVE) SARS-CoV-2 (PCR) (NEGATIVE) Group A Strep Antibody (NEGATIVE) 05/10/21 05/10/21 05/10/21 Range/Units 01:30 05:37 05:37 WBC 12.2 H (4.0-10.5) K/mm3 RBC 3.94 L (4.1-5.6) M/mm3 Hgb 11.4 L (12.5-18.0) gm/dl Hct 36.4 L (42-50) % MCV 92.4 (78-100) fl MCH 28.9 (26-32) pg MCHC 31.3 L (32-36) g/dl RDW 14.8 H (11.5-14.0) % Plt Count 167 (150-450) K/mm3 MPV 8.9 (7.5-11.0) fl Gran % 76.9 H (36.0-66.0) % Eos # (Auto) 0.17 (0-0.5) Absolute Lymphs (auto) 1.50 (1.0-4.6) Absolute Monos (auto) 1.12 (0.0-1.3) Lymphocytes % 12.3 L (24.0-44.0) % Monocytes % 9.2 (0.0-12.0) % Eosinophils % 1.4 (0.00-5.0) % Basophils % 0.2 (0.0-0.4) % Absolute Granulocytes 9.42 H (1.4-6.9) Basophils # 0.02 (0-0.4) D-Dimer (215-500) ng/mL Sodium 134 L (137-145) mmol/L Potassium 3.8 (3.5-5.1) mmol/L Chloride 100 (98-107) mmol/L Carbon Dioxide 26 (22-30) mmol/L Anion Gap 11.7 (5-15) MEQ/L BUN 11 (9-20) mg/dL Creatinine 0.56 L (0.66-1.25) mg/dL Estimated GFR > 60.0 ML/MIN Glucose 98 (74-106) mg/dL Calcium 8.7 (8.4-10.2) mg/dL Ferritin (17.9-464) ng/mL Total Bilirubin 1.50 H (0.2-1.3) mg/dL AST 24 (17-59) U/L ALT 11 (0-50) U/L Alkaline Phosphatase 54 (38-126) U/L Lactate Dehydrogenase (120-246) U/L Troponin I < 0.012 (0.000-0.034) ng/mL NT-Pro-B Natriuret Pep (0-1800) pg/mL Serum Total Protein 6.5 (6.3-8.2) g/dL Albumin 3.6 (3.5-5.0) g/dL Urine Color (YELLOW) Urine Appearance (CLEAR) Urine pH (5-6) Ur Specific Hardy (1.005-1.025) Urine Protein (Negative) Urine Ketones (NEGATIVE) Urine Blood (0-5) Tino/ul Urine Nitrite (NEGATIVE) Urine Bilirubin (NEGATIVE) Urine Urobilinogen (0-1) mg/dL Ur Leukocyte Esterase (NEGATIVE) Urine WBC (Auto) (0-5) /HPF Urine RBC (Auto) (0-2) /HPF Urine Mucus (Auto) (NEGATIVE) /HPF Urine Culture Reflexed (NO) Urine Glucose (NEGATIVE) mg/dL Monoscreen (Negative) Influenza Type A Ag (NEGATIVE) Influenza Type B Ag (NEGATIVE) SARS-CoV-2 (PCR) (NEGATIVE) Group A Strep Antibody (NEGATIVE) Microbiology 05/09/21 13:50 Blood Culture - Preliminary Blood NO GROWTH TO DATE 05/09/21 13:30 Blood Culture - Preliminary Blood NO GROWTH TO DATE - Radiology Impressions Radiology Exams & Impressions: Radiology Procedures Category Date Time Status CHEST 1 VIEW (PORTABLE) Stat Exams 05/09/21 13:15 Completed CHEST WITH CONTRAST [CT] Stat Exams 05/09/21 14:52 Completed - Other Procedures and Tests Respiratory Therapy 05/09/21 20:11 Oxygen Nasal Cannula 2 lpm 05/09/21 21:00 Respiratory Therapy Assessment DAILY Assessment/Plan (1) Pneumonia Current Visit: No Status: Acute Qualifiers: Pneumonia type: due to unspecified organism Laterality: bilateral Lung location: lower lobe of lung Qualified Code(s): J18.9 - Pneumonia, unspecified organism Assessment & Plan: on rocephin and zithromax. if he is afebrile until tomorrow, may be able to send him home on po antibiotics as clinically he is looking very good. Code(s): J18.9 - PNEUMONIA, UNSPECIFIED ORGANISM (2) Mass of right lung Current Visit: Yes Status: Acute Assessment & Plan: Will need to discuss with pt and family prior to discharge so they can work on appropriate follow up. Did not discuss at today's visit. Code(s): R91.8 - OTHER NONSPECIFIC ABNORMAL FINDING OF LUNG FIELD
[2021-05-10] MEDS: Sodium Chloride 0.9% 1000 ML 1,000 ML IV SCH (17:18)
[2021-05-10] MEDS: Zocor 10MG PO SCH (20:59)
[2021-05-10] MEDS: Ativan 0.5 MG PO SCH (20:59)
[2021-05-11] MEDS: Ativan 0.5 MG PO SCH (05:51)
[2021-05-11] MEDS: Advair Hfa 115/21 Common canister IH SCH (06:39)
[2021-05-11] MEDS: DUONEB 0.5-3 MG/3 ml Neb IH SCH (06:39)
[2021-05-11 06:54] VITALS: O2SAT 95
[2021-05-11 07:05] VITALS: BP 132/81; PULSE 83
--- NOTE | 2021-05-11 08:25 | PCM.DS ---
Discharge Summary Date of Admission: 05/09/21 20:06 Admitting Physician: JAVIER MCKINNEY Primary Care Provider: JAVIER MCKINNEY Allergies Allergies morphine Allergy (Verified 05/09/21 13:00) unknown rx Hospital Summary - Hospital Course Hospital Course: Pt is 85 yo male pt of Dr. Mckinney with COPD, hyperlipidemia, and GERD who was admitted through ER with fever and pneumonia, with new finding of RML mass. He had WBC of 12.2. D-dimer was 1032 so CTA chest was done showing neg PE, bilat airspace disease, and new RML spiculated masslike opacity. Also, new fatty live r. He was started on IV rocephin and zithromax. Fever to 102.1 on admission, but afebrile since then. Denies shortness of breath and in fact played several tunes for me on his harmonica to demonstrate this. Feeling well and would like to discharge to home today. He will f/u with Dr. Mckinney in 1 week about the PNA and the new RML mass. Pt has had 20 lb weight loss over 6 mo. I discussed this with his son, who is POA. Likely f/u with pulmonology regarding the mass, but this will have to be arranged by Dr. Mckinney. - Vitals & Intake/Output Vital Signs: Vital Signs Temperature 98.1 F 05/11/21 07:04 Pulse Rate 83 05/11/21 07:04 Respiratory Rate 16 05/11/21 07:04 Blood Pressure 132/81 05/11/21 07:04 O2 Sat by Pulse Oximetry 95 05/11/21 07:04 Intake & Output: Intake & Output 05/08/21 05/09/21 05/10/21 05/11/21 11:59 11:59 11:59 11:59 Intake Total 779 2518 Balance 779 2518 Weight 75.2 kg 75 kg - Lab Result Diagrams: 05/10/21 05:37 05/10/21 05:37 Micro Results-Entire Visit: Microbiology 05/09/21 13:50 Blood Culture - Preliminary Blood NO GROWTH TO DATE 05/09/21 13:30 Blood Culture - Preliminary Blood NO GROWTH TO DATE - Radiology Exams Ordered Rad Exams-Entire Visit: Radiology Procedures Category Date Time Status CHEST 1 VIEW (PORTABLE) Stat Exams 05/09/21 13:15 Completed CHEST WITH CONTRAST [CT] Stat Exams 05/09/21 14:52 Completed - Procedures and Test Procedures and Tests throughout Hospitalization: Therapy Orders & Screens 05/09/21 20:11 Oxygen Nasal Cannula 2 lpm Comment: 05/09/21 21:00 Respiratory Therapy Assessment DAILY Comment: 05/09/21 21:01 Respiratory MDI BID Comment: Discharge Exam General Appearance: no apparent distress, alert Neurologic Exam: oriented x 3, cooperative Eye Exam: eyes nml inspection Ears, Nose, Throat Exam: moist mucous membranes Neck Exam: normal inspection Respiratory Exam: normal breath sounds, lungs clear, No crackles/rales, No rhonchi, No wheezing Cardiovascular Exam: regular rate/rhythm, normal heart sounds, No murmur Gastrointestinal/Abdomen Exam: soft, normal bowel sounds, No tenderness, No distention, No mass, No guarding, No rebound Extremity Exam: normal inspection, No pedal edema, No swelling Skin Exam: warm, dry, No rash Final Diagnosis/Problem List - Final Discharge Diagnosis/Problem (1) Pneumonia Current Visit: No Status: Acute Assessment & Plan: Doing better - now afebrile and has not had O2 requirement. On rocephin and zithromax. Will discharge to home on augmentin. F/u with Dr. Mckinney in 1 week. Code(s): J18.9 - PNEUMONIA, UNSPECIFIED ORGANISM (2) Mass of right lung Current Visit: Yes Status: Acute Assessment & Plan: Discussed with son, who is POA. Per son, pt perseverates on bad news so they will discuss with him when they are ready to go to the pig farm [facility]. I have sent a message in the EMR to Dr. Mckinney's staff about pt's need for pulmonology appt. Code(s): R91.8 - OTHER NONSPECIFIC ABNORMAL FINDING OF LUNG FIELD - Discharge Disposition: Home, Self-Care Condition: Good Prescriptions: New Lactobacillus Acidophilus [Acidophilus TABLET] 1 tab PO BID #14 tablet Amox Tr/Potass Clav. 875 mg [Augmentin 875-125 Tablet] 875 mg PO BID #14 tablet Continue Multivitamin [Multi-Vitamin Daily] 1 each PO 3XW Aspirin 81 mg PO LUNCH Rabeprazole Sodium [Aciphex] 20 mg PO BID Lorazepam 0.5 mg [Ativan 0.5 MG] 0.5 mg PO BID Vit B Comp/C/Folic/Iron/Vit E [Vitamin B Complex Tablet] 0.5 tab PO DAILY Tamsulosin HCl 0.4 mg [Flomax 0.4 MG] 1 cap PO DAILY [place]-3/Dha/Epa/Fish Oil [[place] 3 500 Softgel] 1 cap PO 3XW Ipratropium/Albuterol Sulfate [Combivent Inhaler] 1 puff IH TID Fluticasone/Vilanterol [Breo Ellipta 100-25 Mcg INH] 1 puff IH DAILY Gabapentin 300 mg PO TID Hydrocodone/Acetaminophen [Hydrocodone-Acetamin 7.5-325] 1 tab PO Q8H PRN PRN Reason: Pain Omeprazole 40 mg PO LUNCH Atorvastatin Calcium [Lipitor] 10 mg PO HS Albuterol 2.5 mg/3 ml Neb [Proventil 2.5 mg/3 ml Neb] 6 ml IH BID Carboxymethylcellulose Sodium [Thera Tears] 2 drops OP Q2H/PRN PRN PRN Reason: DRY EYES Instructions: Pneumonia, Adult (DC) Follow up with: JAVIER MCKINNEY MD [Primary Care Provider] - 05/20/21 10:30 am
[2021-05-11] MEDS ORDERED: FISH OIL 1,000 MG CAPSULE PO SCH (09:30)
[2021-05-11] MEDS ORDERED: THERAGRAN MULTIVITAMIN PO SCH (09:30)
[2021-05-11] MEDS ORDERED: ENOXAPARIN SODIUM SQ SCH (10:00)
== END 2021-05-11 09:20 | disposition home or self-care (01) | DRG 195 ==
LOC: ED 12:50 → MED SURG 20:06
PROVIDERS: ADMIT Family Medicine; ATTEND Family Medicine
DX: J18.9 Pneumonia, unspecified organism (principal); R91.8 Other nonspecific abnormal finding of lung field; Z99.81 Dependence on supplemental oxygen; R53.1 Weakness; J44.9 Chronic obstructive pulmonary disease, unspecified; E78.5 Hyperlipidemia, unspecified; K21.9 Gastro-esophageal reflux disease without esophagitis; Z79.899 Other long term (current) drug therapy; Z20.822 Contact with and (suspected) exposure to COVID-19
CPT/HCPCS: 36000; 36415; 71045; 71260; 80053; 81001; 82728; 83605; 83615; 83880; 84484; 85025; 85379; 86308; 87040; 87400; 87651; 93005; 94640; 94760; 96365; 99285; U0003; 86790; J0456; J0696; A9270-GY

== ENCOUNTER 2021-06-24 18:09 | Emergency (ER) | payer MEDICARE, OTHER ==
[2021-06-24] MEDS ORDERED: Sodium Chloride 0.9% 500 ML 500 ML IV ONE ×2 (18:42→19:39)
--- NOTE | 2021-06-24 19:17 | ERPHSYRPT ---
- History of Present Illness Time Seen by Provider: 06/24/21 18:14 Historian: patient Patient Subjective Stated Complaint: weakness, abdominal pain beginning today Triage Nursing Assessment: Pt brought to the the ER via EMS, tachycardic, febrile, rates abdominal pain as 5/10, had bowel movement today, lethargic, pulses normal, sleep apnea, N&V Physician History: 85 years old male presented in the ER with chief complaint of lower abdominal pain by EMS. As per family patient has been more sleepy tired and having lower abdominal pain since morning, took [place] and since then more sleepy. He did have nausea and 2 episodes of nonprojectile, nonbilious vomiting. Currently patient report his abdominal pain is much improved. Denies any diarrhea. Does have low-grade fever on presentation in the ER without cough or shortness of breath. Not a good historian and history is limited. Timing/Duration: today, intermittent, gradual onset, improved Activities at Onset: rest Quality: cramping Abdominal Pain Onset Location: RLQ, LLQ, periumbilical, suprapubic Pain Radiation: no radiation Severity of Pain-Max: moderate Severity of Pain-Current: mild Modifying Factors: Improves With: nothing Associated Symptoms: nausea, vomiting Previous symptoms: no prior history Allergies/Adverse Reactions: morphine Allergy (Verified 06/24/21 18:37) unknown rx Home Medications: Aspirin 81 mg PO LUNCH 04/12/14 [History] Lorazepam 0.5 mg [Ativan 0.5 MG] 0.5 mg PO BID 04/12/14 [History] Multivitamin [Multi-Vitamin Daily] 1 each PO 3XW 04/12/14 [History] Rabeprazole Sodium [Aciphex] 20 mg PO BID 04/12/14 [History] Fluticasone/Vilanterol [Breo Ellipta 100-25 Mcg INH] 1 puff IH DAILY 11/07/19 [History] Gabapentin 300 mg PO TID 11/07/19 [History] Ipratropium/Albuterol Sulfate [Combivent Inhaler] 1 puff IH TID 11/07/19 [History] Etna-3/Dha/Epa/Fish Oil [Etna 3 500 Softgel] 1 cap PO 3XW 11/07/19 [History] Tamsulosin HCl 0.4 mg [Flomax 0.4 MG] 1 cap PO DAILY 11/07/19 [History] Vit B Comp/C/Folic/Iron/Vit E [Vitamin B Complex Tablet] 0.5 tab PO DAILY 11/07/19 [History] Albuterol 2.5 mg/3 ml Neb [Proventil 2.5 mg/3 ml Neb] 6 ml IH BID 05/09/21 [History] Atorvastatin Calcium [Lipitor] 10 mg PO HS 05/09/21 [History] Carboxymethylcellulose Sodium [Thera Tears] 2 drops OP Q2H/PRN PRN 05/09/21 [History] Hydrocodone/Acetaminophen [Hydrocodone-Acetamin 7.5-325] 1 tab PO Q8H PRN 05/09/21 [History] Omeprazole 40 mg PO LUNCH 05/09/21 [History] Hx Tetanus, Diphtheria Vaccination/Date Given: Yes Hx Influenza Vaccination/Date Given: Yes Hx Pneumococcal Vaccination/Date Given: Yes Travel Risk - International Travel Have you traveled outside of the country in past 3 weeks: No - Coronavirus Screening Are you exhibiting any of the following symptoms?: No - Vaccine Status Have you recieved a Covid-19 vaccination: Yes Medical Review Coordinator: Moderna - Vaccination Dates Date of 2cond Vaccination (if applicable): unknown - Review of Systems Constitutional: Fever, Chills, Fatigue, Weakness Eyes: No Symptoms Ears, Nose, & Throat: No Symptoms Respiratory: No Symptoms Cardiac: No Symptoms Abdominal/Gastrointestinal: Abdominal Pain, Nausea, Vomiting Genitourinary Symptoms: No Symptoms Musculoskeletal: Myalgias Skin: No Symptoms Neurological: No Symptoms Psychological: No Symptoms Endocrine: No Symptoms Hematologic/Lymphatic: No Symptoms Immunological/Allergic: No Symptoms - Past Medical History Pertinent Past Medical History: Yes Neurological History: No Pertinent History ENT History: No Pertinent History Cardiac History: No Pertinent History, Other Respiratory History: Bronchitis, COPD, Pneumonia, Other Endocrine Medical History: No Pertinent History Musculoskeletal History: Osteoarthritis, Other GI Medical History: Hernia History: No Pertinent History Psycho-Social History: No Pertinent History Male Reproductive Disorders: Prostate Problems Other Medical History: heart murmur, Rheumatic fever - Past Surgical History Past Surgical History: Yes Neuro Surgical History: No Pertinent History Cardiac: No Pertinent History Respiratory: Other Gastrointestinal: Hernia Repair Genitourinary: No Pertinent History Musculoskeletal: No Pertinent History Male Surgical History: Prostate Surgery, Testicular Surgery Other Surgical History: sinus surgery - Social History Smoking Status: Former smoker How long have you smoked: 4 years Exposure to second hand smoke: No Drug Use: none Patient Lives Alone: No - Nursing Vital Signs Nursing Vital Signs: Initial Vital Signs Temperature 100.1 F 06/24/21 18:21 Pulse Rate 104 H 06/24/21 18:21 Respiratory Rate 19 06/24/21 18:21 Blood Pressure 132/72 06/24/21 18:21 O2 Sat by Pulse Oximetry 95 06/24/21 18:21 Pain Scale Pain Intensity 0 - Physical Exam General Appearance: no apparent distress, alert Eye Exam: PERRL/EOMI, eyes nml inspection Ears, Nose, Throat Exam: normal ENT inspection, TMs normal, pharynx normal Neck Exam: normal inspection, supple, full range of motion Respiratory Exam: normal breath sounds, lungs clear Cardiovascular Exam: regular rate/rhythm, normal heart sounds Gastrointestinal/Abdomen Exam: soft, normal bowel sounds, tenderness (Minimal tenderness suprapubic area without guarding or rebound tenderness) Back Exam: normal inspection, normal range of motion, No CVA tenderness Extremity Exam: normal inspection, normal range of motion Neurologic Exam: alert, oriented x 3, cooperative, 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 car 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 II-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 nml as tested Skin Exam: normal color SpO2 Interpretation: normal SpO2: 95 O2 Delivery: Room Air Ordered Tests: Active Orders 24 hr Category Date Time Status IV Insertion STAT Care 06/24/21 18:41 Active NPO (ED) STAT Care 06/24/21 18:41 Active ABDOMEN AND PELVIS W/0 CONTRAS [CT] Stat Exams 06/24/21 18:42 Taken BLOOD CULTURE Stat Lab 06/24/21 19:21 Received CBC W DIFF Stat Lab 06/24/21 19:21 Completed CMP Stat Lab 06/24/21 19:21 Completed CULTURE,URINE Stat Lab 06/24/21 20:07 Received LIPASE Stat Lab 06/24/21 19:21 Completed PT INR [PROTIME WITH INR] Stat Lab 06/24/21 22:24 Ordered UA W/RFX UR CULTURE Stat Lab 06/24/21 20:05 Completed Medication Summary Generic Name Dose Route Start Last Admin Trade Name Freq PRN Reason Stop Dose Admin Potassium Chloride/Sodium Chloride 1,000 mls @ 125 mls/hr 06/24/21 20:30 06/24/21 20:33 Sodium Chloride 0.9% W/ 20 Meq Kcl/Liter IV 07/24/21 20:29 125 mls/hr .Q8H HOMER Administration Discontinued Medications Generic Name Dose Route Start Last Admin Trade Name Teetee PRN Reason Stop Dose Admin Acetaminophen 975 mg 06/24/21 19:51 06/24/21 19:57 Acetaminophen 325 Mg Tablet PO 06/24/21 19:52 975 mg STAT STA Administration Acetaminophen Confirm 06/24/21 19:50 Acetaminophen 325 Mg Tablet Administered 06/24/21 19:51 Dose 975 mg .ROUTE .STK-MED ONE Sodium Chloride 500 mls @ 500 mls/hr 06/24/21 18:42 06/24/21 19:41 Sodium Chloride 0.9% 500 Ml IV 06/24/21 19:41 500 mls/hr .Q1H ONE Administration Sodium Chloride Confirm 06/24/21 19:39 Sodium Chloride 0.9% 500 Ml Administered 06/24/21 19:40 Dose 500 mls @ ud IV .STK-MED ONE Piperacillin Sod/Tazobactam 100 mls @ 200 mls/hr 06/24/21 20:15 06/24/21 20:30 Sod 3.375 gm/ Sodium Chloride IV 06/24/21 20:44 200 mls/hr STAT ONE Administration Sodium Chloride Confirm 06/24/21 20:23 Sodium Chloride 100ml Mini-Bag Plus Administered 06/24/21 20:24 Dose 100 mls @ ud IV .STK-MED ONE Piperacillin Sod/Tazobactam Sod Confirm 06/24/21 20:23 Piperacillin/Tazobactam Sodium 3.375 Gm Vial Administered 06/24/21 20:24 Dose 3.375 gm IV .STK-MED ONE Lab/Rad Data: Laboratory Result Diagrams 06/24/21 19:21 06/24/21 19:21 Laboratory Results 06/24/21 06/24/21 06/24/21 Range/Units 20:05 19:21 19:21 WBC 11.0 H (4.0-10.5) K/mm3 RBC 3.83 L (4.1-5.6) M/mm3 Hgb 11.2 L (12.5-18.0) gm/dl Hct 36.2 L (42-50) % MCV 94.5 (78-100) fl MCH 29.2 (26-32) pg MCHC 30.9 L (32-36) g/dl RDW 13.8 (11.5-14.0) % Plt Count 186 (150-450) K/mm3 MPV 9.0 (7.5-11.0) fl Gran % 94.6 H (36.0-66.0) % Eos # (Auto) 0.02 (0-0.5) Absolute Lymphs (auto) 0.26 L (1.0-4.6) Absolute Monos (auto) 0.30 (0.0-1.3) Lymphocytes % 2.4 L (24.0-44.0) % Monocytes % 2.7 (0.0-12.0) % Eosinophils % 0.2 (0.00-5.0) % Basophils % 0.1 (0.0-0.4) % Absolute Granulocytes 10.44 H (1.4-6.9) Basophils # 0.01 (0-0.4) Sodium 137 (137-145) mmol/L Potassium 3.3 L (3.5-5.1) mmol/L Chloride 102 (98-107) mmol/L Carbon Dioxide 27 (22-30) mmol/L Anion Gap 11.3 (5-15) MEQ/L BUN 15 (9-20) mg/dL Creatinine 0.59 L (0.66-1.25) mg/dL Estimated GFR > 60.0 ML/MIN Glucose 97 (74-106) mg/dL Calcium 8.5 (8.4-10.2) mg/dL Total Bilirubin 2.20 H (0.2-1.3) mg/dL AST 613 H (17-59) U/L ALT 278 H (0-50) U/L Alkaline Phosphatase 201 H (38-126) U/L Serum Total Protein 6.8 (6.3-8.2) g/dL Albumin 3.8 (3.5-5.0) g/dL Lipase 127 (23-300) U/L Urine Color ISIS (YELLOW) Urine Appearance CLEAR (CLEAR) Urine pH 7.0 (5-6) Ur Specific [place] 1.014 (1.005-1.025) Urine Protein NEGATIVE (Negative) Urine Ketones NEGATIVE (NEGATIVE) Urine Blood NEGATIVE (0-5) Tino/ul Urine Nitrite NEGATIVE (NEGATIVE) Urine Bilirubin NEGATIVE (NEGATIVE) Urine Urobilinogen NEGATIVE (0-1) mg/dL Ur Leukocyte Esterase NEGATIVE (NEGATIVE) Urine WBC (Auto) NONE (0-5) /HPF Urine RBC (Auto) 11-15 (0-2) /HPF U Epithel Cells (Auto) NONE (FEW) /HPF Urine Bacteria (Auto) NONE (NEGATIVE) /HPF Urine Mucus (Auto) SLIGHT (NEGATIVE) /HPF Urine Culture Reflexed ORDERED SEPARATELY (NO) Urine Glucose NEGATIVE (NEGATIVE) mg/dL - Progress Progress: improved, re-examined Progress Note: 06/24/21 20:17 85 years old is evaluated for abdominal pain and low-grade fever with vomiting. Given fluids, Tylenol, work-up showed white count of 11 with elevated liver enzymes. CT abdomen pelvis without contrast showed gallbladder wall thickening, pericholecystic fluid 06/24/21 22:[address] Amanda Peterson general surgeon on-call who recommended transfer to higher level of care. I have discussed with [facility] ER physician and no beds are available and also no one is available to do ERCP. I have discussed with Dr. Valdez and At , reviewed history, work-up, agreed with transfer. Discussed with : Isidro Weber Will see patient in: hospital (observation) Counseled pt/family regarding: lab results, diagnosis, rad results - Departure Departure Disposition: Transfer Clinical Impression: Acute acalculous cholecystitis Condition: Stable Critical Care Time: No Referrals: JAVIER MCKINNEY MD [Primary Care Provider] - Follow up/PCP as directed
[2021-06-24 19:31] LABS: Absolute Neutrophil Ct (ANC) 10.44 (1.4-6.9); BASOPHIL % 0.1 % (0.0-0.4); Basophil (Absolute #) 0.01 (0-0.4); Eosinophil % 0.2 % (0.00-5.0); Eosinophil (Absolute #) 0.02 (0-0.5); Hematocrit 36.2 % (42-50); Hemoglobin 11.2 gm/dl (12.5-18.0); Lymphocyte (Absolute #) 0.26 (1.0-4.6); Lymphocytes % 2.4 % (24.0-44.0); Mean Cell Volume 94.5 fl (78-100); Mean Corpuscular Hemoglobin 29.2 pg (26-32); Mean Corpuscular Hgb Concent. 30.9 g/dl (32-36); Monocytes % 2.7 % (0.0-12.0); Neutrophil % 94.6 % (36.0-66.0); Platelet Count 186 K/mm3 (150-450); Red Blood Count 3.83 M/mm3 (4.1-5.6); Red Cell Distribution Width 13.8 % (11.5-14.0)
[2021-06-24] MEDS ORDERED: TYLENOL 325 MG ONE (19:50)
[2021-06-24] MEDS ORDERED: TYLENOL 325 MG PO STA (19:51)
[2021-06-24 19:58] LABS: ALBUMIN 3.8 g/dL (3.5-5.0); ALKALINE PHOSPHATASE 201 U/L (38-126); ANION GAP 11.3 MEQ/L (5-15); BLOOD UREA NITROGEN 15 mg/dL (9-20); CHLORIDE 102 mmol/L (98-107); Calcium 8.5 mg/dL (8.4-10.2); Carbon Dioxide 27 mmol/L (22-30); Creatinine 1 0.59 mg/dL (0.66-1.25); EST GLOMERULAR FILTRATION RATE > 60.0 ML/MIN; Glucose 97 mg/dL (74-106); LIPASE 127 U/L (23-300); Potassium 3.3 mmol/L (3.5-5.1); SGOT/AST 613 U/L (17-59); SGPT/ALT 278 U/L (0-50); SODIUM 137 mmol/L (137-145); Total Protein 6.8 g/dL (6.3-8.2)
[2021-06-24] MEDS ORDERED: Zosyn 3.375 GM Vial 3.375 GM in Sodium Chloride 100ML MINI-BAG PLUS 100 ML IV ONE (20:15)
[2021-06-24 20:19] LABS: Appearance CLEAR (CLEAR); Bilirubin NEGATIVE (NEGATIVE); Blood NEGATIVE Ery/ul (0-5); Glucose NEGATIVE (NEGATIVE); Ketones NEGATIVE (NEGATIVE); Leukocyte Esterase NEGATIVE (NEGATIVE); Mucus SLIGHT /HPF (NEGATIVE); Nitrite NEGATIVE (NEGATIVE); Protein,Urine Dip NEGATIVE (Negative); Specific Gravity 1.014 (1.005-1.025); Urobilinogen NEGATIVE mg/dL (0-1)
[2021-06-24] MEDS ORDERED: Zosyn 3.375 GM Vial IV ONE (20:23)
[2021-06-24] MEDS ORDERED: Sodium Chloride 0.9% W/ 20 mEq KCl/LITER 1,000 ML IV ONE (20:23)
[2021-06-24] MEDS ORDERED: Sodium Chloride 100ML MINI-BAG PLUS 100 ML IV ONE (20:23)
[2021-06-24] MEDS ORDERED: Sodium Chloride 0.9% W/ 20 mEq KCl/LITER 1,000 ML IV SCH (20:30)
[2021-06-24 22:38] LABS: INR 1.24 (0.8-3.0); PROTIME 14.6 SECONDS (9.4-12.5)
[2021-06-24 23:24] LABS: COVID AG -BINAX NOW RAPID TEST NEGATIVE (NEGATIVE)
[2021-06-24 23:47] LABS: Slide Review 1 YES
[2021-06-25 02:25] VITALS: O2SAT 96
[2021-06-25 03:15] VITALS: BP 110/62; PULSE 80
[2021-06-25] MEDS ORDERED: Sodium Chloride 0.9% 1000 ML 1,000 ML ONE (03:48)
[2021-06-25] MEDS ORDERED: Sodium Chloride 0.9% 1000 ML 1,000 ML IV SCH (04:00)
--- NOTE | 2021-06-25 08:53 | XRAY ---
Indication: Abdomen pain. Multiple contiguous axial images obtained through the abdomen and pelvis without contrast. Comparison: June 22, 2018. Patient's arms now produces mild beam artifact. Lung bases again demonstrates scattered fibrosis/scarring and tiny right base calcified granuloma. Heart not enlarged. Noncontrasted stomach and bowel loops nonobstructed with normal appendix. There remains mild sigmoid diverticulosis without diverticulitis. Gallbladder is now abnormally distended with mild wall thickening and tiny pericholecystic fluid concerning for acalculous cholecystitis. No walled off fluid collection or free air. Stable tiny hepatic/splenic calcified granulomas, right renal parapelvic cyst, and enlarged prostate gland. Remaining liver, pancreas, spleen, adrenal glands, kidneys, ureters, and bladder are unremarkable for noncontrast exam. Again mild scattered aortoiliac calcifications without AAA. Osseous structures intact again with osteopenia and minimal/mild degenerative changes throughout the spine and both hips. Impression: 1. New distended gallbladder with wall thickening and tiny pericholecystic fluid. Rule out acalculous cholecystitis. Gallbladder sonogram may yield further information. 2. Again incidental right renal cyst, sigmoid diverticulosis, enlarged prostate gland, chronic bony findings, and old granulomatous disease.
== END 2021-06-25 04:20 | disposition short-term general hospital (02) ==
LOC: ED 18:09
DX: K81.0 Acute cholecystitis (principal); R11.2 Nausea with vomiting, unspecified; R50.9 Fever, unspecified; Z79.891 Long term (current) use of opiate analgesic
CPT/HCPCS: 36000; 36415; 74176; 80053; 81001; 83690; 85025; 85610; 87040; 87086; 96360; 96365; 99000; 99285; P9612; 87077; 87186; A9270-GY

== ENCOUNTER 2021-09-02 17:16 | Emergency (ER) | payer MEDICARE, OTHER ==
[2021-09-02 18:30] LABS: Absolute Neutrophil Ct (ANC) 2.55 (1.4-6.9); Basophil (Absolute #) 0.02 (0-0.4); Eosinophil % 4.4 % (0.00-5.0); Eosinophil (Absolute #) 0.21 (0-0.5); Hemoglobin 11.4 gm/dl (12.5-18.0); Lymphocyte (Absolute #) 1.38 (1.0-4.6); Lymphocytes % 28.7 % (24.0-44.0); Mean Corpuscular Hemoglobin 29.5 pg (26-32); Mean Corpuscular Hgb Concent. 31.7 g/dl (32-36); Mean Platelet Volume 8.7 fl (7.5-11.0); Monocyte (Absolute #) 0.65 (0.0-1.3); Monocytes % 13.5 % (0.0-12.0); Platelet Count 213 K/mm3 (150-450); Red Blood Count 3.87 M/mm3 (4.1-5.6); Red Cell Distribution Width 13.5 % (11.5-14.0); White Blood Count 4.8 K/mm3 (4.0-10.5)
[2021-09-02 18:40] LABS: ALBUMIN 3.7 g/dL (3.5-5.0); ALKALINE PHOSPHATASE 83 U/L (38-126); ANION GAP 12.6 MEQ/L (5-15); BLOOD UREA NITROGEN 17 mg/dL (9-20); CHLORIDE 99 mmol/L (98-107); Calcium 8.8 mg/dL (8.4-10.2); Carbon Dioxide 28 mmol/L (22-30); Creatinine 1 0.58 mg/dL (0.66-1.25); EST GLOMERULAR FILTRATION RATE > 60.0 ML/MIN; Glucose 93 mg/dL (74-106); Potassium 4.4 mmol/L (3.5-5.1); SGOT/AST 28 U/L (17-59); SGPT/ALT 14 U/L (0-50); SODIUM 135 mmol/L (137-145); Total Protein 7.1 g/dL (6.3-8.2)
[2021-09-02 20:08] VITALS: O2SAT 98
--- NOTE | 2021-09-02 20:58 | ERPHSYRPT ---
- History of Present Illness Time Seen by Provider: 09/02/21 17:50 Source: patient Exam Limitations: no limitations Patient Subjective Stated Complaint: Pt normally wears oxygen when he is sleeping but yesterday when he was walking he couldn't catch his breath and has been wearing it at 2L since then, pt had an ERCP done on the 16th Triage Nursing Assessment: Pt brought to the ER by his daughters, vitals wnl, denies pain, pulses normal, skin n/w/d, 2L NC, states that he normally does not wear oxygen except to sleep or watch TV, doesn't appear to be in any distress Physician History: Patient is a 86-year-old male presents to our ED for evaluation of shortness of breath. Patient states that he normally wears oxygen only when he sleeps however yesterday patient felt very short of breath upon ambulation. Patient states he could not catch his breath. No associated chest pain. No nausea vomiting or diaphoresis. Patient advises that he had an ERCP performed on 216. No history of clots. Patient states that he has been wearing his oxygen during ambulation since the onset of shortness of breath. No other complaints. No fever. No obvious Covid exposures. Patient voices no other complaints or concerns at this time. Timing/Duration: yesterday Severity: moderate Modifying Factors: Improves With: nothing Associated Symptoms: denies symptoms Allergies/Adverse Reactions: morphine Allergy (Verified 09/02/21 17:50) unknown rx Home Medications: Aspirin 81 mg PO LUNCH 04/12/14 [History] Lorazepam 0.5 mg [Ativan 0.5 MG] 0.5 mg PO BID 04/12/14 [History] Rabeprazole Sodium [Aciphex] 20 mg PO BID 04/12/14 [History] Gabapentin 300 mg PO TID 11/07/19 [History] [place]-3/Dha/Epa/Fish Oil [[place] 3 500 Softgel] 1 cap PO 3XW 11/07/19 [History] Tamsulosin HCl 0.4 mg [Flomax 0.4 MG] 1 cap PO DAILY 11/07/19 [History] Atorvastatin Calcium [Lipitor] 10 mg PO HS 05/09/21 [History] Hydrocodone/Acetaminophen [Hydrocodone-Acetamin 7.5-325] 0.5 tab PO BID 05/09/21 [History] Famotidine 40 mg PO DAILY 09/02/21 [History] Hx Tetanus, Diphtheria Vaccination/Date Given: Yes Hx Influenza Vaccination/Date Given: Yes Hx Pneumococcal Vaccination/Date Given: Yes Travel Risk - International Travel Have you traveled outside of the country in past 3 weeks: No - Coronavirus Screening Are you exhibiting any of the following symptoms?: No - Vaccine Status Have you recieved a Covid-19 vaccination: Yes Fur Weigher: Moderna - Vaccination Dates Date of 2cond Vaccination (if applicable): unknown - Review of Systems Constitutional: No Symptoms, No Fever, No Chills Eyes: No Symptoms Ears, Nose, & Throat: No Symptoms Respiratory: No Symptoms, No Cough, No Dyspnea Cardiac: No Symptoms, No Chest Pain, No Edema, No Syncope Abdominal/Gastrointestinal: No Symptoms, No Abdominal Pain, No Nausea, No Vomiting, No Diarrhea Genitourinary Symptoms: No Symptoms, No Dysuria Musculoskeletal: No Symptoms, No Back Pain, No Neck Pain Skin: No Symptoms, No Rash Neurological: No Symptoms, No Dizziness, No Focal Weakness, No Sensory Changes Psychological: No Symptoms Endocrine: No Symptoms Hematologic/Lymphatic: No Symptoms Immunological/Allergic: No Symptoms All Other Systems: Reviewed and Negative - Past Medical History Pertinent Past Medical History: Yes Neurological History: No Pertinent History ENT History: No Pertinent History Cardiac History: No Pertinent History, Other Respiratory History: Bronchitis, COPD, Pneumonia, Other Endocrine Medical History: No Pertinent History Musculoskeletal History: Osteoarthritis, Other GI Medical History: Hernia History: No Pertinent History Psycho-Social History: No Pertinent History Male Reproductive Disorders: Prostate Problems Other Medical History: heart murmur, Rheumatic fever - Past Surgical History Past Surgical History: Yes Neuro Surgical History: No Pertinent History Cardiac: No Pertinent History Respiratory: Other Gastrointestinal: Hernia Repair Genitourinary: No Pertinent History Musculoskeletal: No Pertinent History Male Surgical History: Prostate Surgery, Testicular Surgery Other Surgical History: sinus surgery - Social History Smoking Status: Former smoker How long have you smoked: 4 years Exposure to second hand smoke: No Drug Use: none Patient Lives Alone: No - Nursing Vital Signs Nursing Vital Signs: Initial Vital Signs Temperature 97.6 F 09/02/21 17:35 Pulse Rate 66 09/02/21 17:35 Respiratory Rate 12 09/02/21 17:35 Blood Pressure 137/80 09/02/21 17:35 O2 Sat by Pulse Oximetry 100 09/02/21 17:35 Pain Scale Pain Intensity 0 - Physical Exam General Appearance: no apparent distress, alert Eye Exam: PERRL/EOMI, eyes nml inspection Ears, Nose, Throat Exam: normal ENT inspection, TMs normal, pharynx normal, moist mucous membranes Neck Exam: normal inspection, non-tender, supple, full range of motion Respiratory Exam: normal breath sounds, lungs clear, airway intact, No respiratory distress Cardiovascular Exam: regular rate/rhythm, normal heart sounds, normal peripheral pulses Gastrointestinal/Abdomen Exam: soft, normal bowel sounds, No tenderness, No mass Back Exam: normal inspection, normal range of motion, No CVA tenderness, No vertebral tenderness Extremity Exam: normal inspection, normal range of motion, pelvis stable Neurologic Exam: alert, oriented x 3, cooperative, normal mood/affect, nml cerebellar function, nml station & gait, sensation nml, No motor deficits Skin Exam: normal color, warm, dry, No rash Lymphatic Exam: No adenopathy SpO2 Interpretation: normal SpO2: 98 O2 Delivery: Room Air - Course Nursing assessment & vital signs reviewed: Yes EKG Interpreted by Me: RATE (65), Sinus Rhythm, NORMAL AXIS, NORMAL QRS, Right Bundle Branch Block - CT Exams Chest CT Interpretation: Tele-radiologist Report (Compared to 05/09/2021 - PE. Bilat eral airspace disease markedly improved with mild residual versus recurrent disease in both lower lobes.) Ordered Tests: Active Orders 24 hr Category Date Time Status Major Assembly Inspector STAT Care 09/02/21 18:11 Active EKG-ER Only STAT Care 09/02/21 18:11 Active IV Insertion STAT Care 09/02/21 18:11 Active Oxygen-ED Only Nasal Cannula 2 lpm Care 09/02/21 18:20 Active Pulse Oximetry (ED) STAT Care 09/02/21 18:11 Active CHEST WITH CONTRAST [CT] Stat Exams 09/02/21 19:52 Taken CBC W DIFF Stat Lab 09/02/21 18:15 Completed CMP Stat Lab 09/02/21 18:15 Completed COVID AG-BINAX NOW RAPID TEST Stat Lab 09/02/21 21:19 Completed D-DIMER QUANTITATIVE Stat Lab 09/02/21 18:15 Completed TROPONIN Q3H Lab 09/02/21 18:15 Completed TROPONIN Q3H Lab 09/02/21 21:15 Ordered TROPONIN Q3H Lab 09/03/21 00:15 Ordered TROPONIN Q3H Lab 09/03/21 03:15 Ordered TROPONIN Q3H Lab 09/03/21 06:15 Ordered UA W/RFX UR CULTURE Stat Lab 09/02/21 18:11 Completed Medication Summary Generic Name Dose Route Start Last Admin Trade Name Freq PRN Reason Stop Dose Admin Ceftriaxone Sodium/Dextrose 1 g in 50 mls @ 100 mls/hr 09/02/21 21:49 09/02/21 21:52 Rocephin 1 Gm-D5w 50 Ml Bag IV 09/02/21 22:18 100 ml/hr STAT STA 100 mls/hr Administration Discontinued Medications Generic Name Dose Route Start Last Admin Trade Name Freq PRN Reason Stop Dose Admin Ceftriaxone Sodium/Dextrose Confirm 09/02/21 21:49 Rocephin 1 Gm-D5w 50 Ml Bag Administered 09/02/21 21:50 Dose 1 g in 50 mls @ ud IV .STK-MED ONE Lab/Rad Data: Laboratory Result Diagrams 09/02/21 18:15 09/02/21 18:15 Laboratory Results 09/02/21 09/02/21 09/02/21 Range/Units 21:19 18:15 18:15 WBC (4.0-10.5) K/mm3 RBC (4.1-5.6) M/mm3 Hgb (12.5-18.0) gm/dl Hct (42-50) % MCV (78-100) fl MCH (26-32) pg MCHC (32-36) g/dl RDW (11.5-14.0) % Plt Count (150-450) K/mm3 MPV (7.5-11.0) fl Gran % (36.0-66.0) % Eos # (Auto) (0-0.5) Absolute Lymphs (auto) (1.0-4.6) Absolute Monos (auto) (0.0-1.3) Lymphocytes % (24.0-44.0) % Monocytes % (0.0-12.0) % Eosinophils % (0.00-5.0) % Basophils % (0.0-0.4) % Absolute Granulocytes (1.4-6.9) Basophils # (0-0.4) D-Dimer 649 H* (215-500) ng/mL Sodium (137-145) mmol/L Potassium (3.5-5.1) mmol/L Chloride (98-107) mmol/L Carbon Dioxide (22-30) mmol/L Anion Gap (5-15) MEQ/L BUN (9-20) mg/dL Creatinine (0.66-1.25) mg/dL Estimated GFR ML/MIN Glucose (74-106) mg/dL Calcium (8.4-10.2) mg/dL Total Bilirubin (0.2-1.3) mg/dL AST (17-59) U/L ALT (0-50) U/L Alkaline Phosphatase (38-126) U/L Troponin I < 0.012 (0.000-0.034) ng/mL Serum Total Protein (6.3-8.2) g/dL Albumin (3.5-5.0) g/dL Urine Color (YELLOW) Urine Appearance (CLEAR) Urine pH (5-6) Ur Specific [place] (1.005-1.025) Urine Protein (Negative) Urine Ketones (NEGATIVE) Urine Blood (0-5) Tino/ul Urine Nitrite (NEGATIVE) Urine Bilirubin (NEGATIVE) Urine Urobilinogen (0-1) mg/dL Ur Leukocyte Esterase (NEGATIVE) Urine WBC (Auto) (0-5) /HPF Urine RBC (Auto) (0-2) /HPF U Epithel Cells (Auto) (FEW) /HPF Urine Bacteria (Auto) (NEGATIVE) /HPF Urine Mucus (Auto) (NEGATIVE) /HPF Urine Culture Reflexed (NO) Urine Glucose (NEGATIVE) mg/dL SARS-CoV-2 Ag (Rapid) NEGATIVE (NEGATIVE) 09/02/21 09/02/21 09/02/21 Range/Units 18:15 18:15 18:11 WBC 4.8 (4.0-10.5) K/mm3 RBC 3.87 L (4.1-5.6) M/mm3 Hgb 11.4 L (12.5-18.0) gm/dl Hct 36.0 L (42-50) % MCV 93.0 (78-100) fl MCH 29.5 (26-32) pg MCHC 31.7 L (32-36) g/dl RDW 13.5 (11.5-14.0) % Plt Count 213 (150-450) K/mm3 MPV 8.7 (7.5-11.0) fl Gran % 53.0 (36.0-66.0) % Eos # (Auto) 0.21 (0-0.5) Absolute Lymphs (auto) 1.38 (1.0-4.6) Absolute Monos (auto) 0.65 (0.0-1.3) Lymphocytes % 28.7 (24.0-44.0) % Monocytes % 13.5 H (0.0-12.0) % Eosinophils % 4.4 (0.00-5.0) % Basophils % 0.4 (0.0-0.4) % Absolute Granulocytes 2.55 (1.4-6.9) Basophils # 0.02 (0-0.4) D-Dimer (215-500) ng/mL Sodium 135 L (137-145) mmol/L Potassium 4.4 (3.5-5.1) mmol/L Chloride 99 (98-107) mmol/L Carbon Dioxide 28 (22-30) mmol/L Anion Gap 12.6 (5-15) MEQ/L BUN 17 (9-20) mg/dL Creatinine 0.58 L (0.66-1.25) mg/dL Estimated GFR > 60.0 ML/MIN Glucose 93 (74-106) mg/dL Calcium 8.8 (8.4-10.2) mg/dL Total Bilirubin 0.90 (0.2-1.3) mg/dL AST 28 (17-59) U/L ALT 14 (0-50) U/L Alkaline Phosphatase 83 (38-126) U/L Troponin I (0.000-0.034) ng/mL Serum Total Protein 7.1 (6.3-8.2) g/dL Albumin 3.7 (3.5-5.0) g/dL Urine Color YELLOW (YELLOW) Urine Appearance CLEAR (CLEAR) Urine pH 6.0 (5-6) Ur Specific [place] 1.044 (1.005-1.025) Urine Protein NEGATIVE (Negative) Urine Ketones NEGATIVE (NEGATIVE) Urine Blood NEGATIVE (0-5) Tino/ul Urine Nitrite NEGATIVE (NEGATIVE) Urine Bilirubin NEGATIVE (NEGATIVE) Urine Urobilinogen NEGATIVE (0-1) mg/dL Ur Leukocyte Esterase NEGATIVE (NEGATIVE) Urine WBC (Auto) 0-2 (0-5) /HPF Urine RBC (Auto) NONE (0-2) /HPF U Epithel Cells (Auto) NONE (FEW) /HPF Urine Bacteria (Auto) NONE (NEGATIVE) /HPF Urine Mucus (Auto) SLIGHT (NEGATIVE) /HPF Urine Culture Reflexed NO (NO) Urine Glucose NEGATIVE (NEGATIVE) mg/dL SARS-CoV-2 Ag (Rapid) (NEGATIVE) - Progress Progress: improved Progress Note: Patient reassessed. He feels well. Patient ambulated in our ED. We assessed his oxygenation and heart rate during exertion. O2 sat during exertion was 95 to 97%. Heart rate was 87. Patient denied experiencing shortness of breath during our walk. CT a chest negative for PE. However bilateral lower lobe airspace disease was observed. Covid test negative. Patient empirically treated with IV Rocephin. A prescription for azithromycin/Z-Blair was forwarded to patient's pharmacy. A written prescription for an inhaler was also provided to patient. Family updated on plan of care. All questions were answered. Patient states he is ready for discharge. He voices no other complaints. Portions of this note were created with voice recognition technology. There may be grammatical, spelling, punctuation or sound alike errors 09/02/21 22:11 EKG revealed a sinus rhythm at 65. Right bundle branch block. Troponin negative. 09/02/21 22:13 Counseled pt/family regarding: lab results, diagnosis, need for follow-up, rad results - Departure Departure Disposition: Home Clinical Impression: Pneumonia Condition: Stable Critical Care Time: No Referrals: JAVIER MCKINNEY MD [Primary Care Provider] - Follow up/PCP as directed Instructions: Pneumonia, Adult (DC) Additional Instructions: Discharge/Care Plan RHONDAZOË ERUM was seen on 09/02/21 in the Emergency Room. The patient was counseled regarding Diagnosis,Lab results, Imaging studies, need for follow up and when to return to the Emergency Room. Prescriptions given: Discharge Note I have spoken with the patient and/or caregivers. I have explained the patient's condition, diagnosis and treatment plan based on the information available to me at this time. I have answered the patient's and/or caregiver's questions and addressed any concerns. The patient and/or caregivers have as good understanding of the patient's diagnosis, condition and treatment plan as can be expected at this point. The vital signs have been stable. The patient's condition is stable and appropriate for discharge from the emergency department. The patient will pursue further outpatient evaluation with the primary care physician or other designated or consulting physician as outlined in the discharge instructions. The patient and/or caregivers are agreeable to this plan of care and follow-up instructions have been explained in detail. The patient and/or caregivers have received these instruction. The patient/and or caregivers are aware that any significant change in condition or worsening of symptoms should prompt an immediate return to this or the closest emergency department or call 911. Prescriptions: Albuterol 8 gm Mdi Hfa [Ventolin Hfa MDI] 8 gm IH Q4H #1 gm Azithromycin 250 mg [Zithromax 250 MG TABLET] 250 mg PO ZPACK #6 tablet
[2021-09-02 21:28] VITALS: PULSE 64
[2021-09-02 21:37] LABS: COVID AG -BINAX NOW RAPID TEST NEGATIVE (NEGATIVE)
[2021-09-02 21:38] LABS: Appearance CLEAR (CLEAR); Bilirubin NEGATIVE (NEGATIVE); Blood NEGATIVE Ery/ul (0-5); Glucose NEGATIVE (NEGATIVE); Ketones NEGATIVE (NEGATIVE); Leukocyte Esterase NEGATIVE (NEGATIVE); Mucus SLIGHT /HPF (NEGATIVE); Nitrite NEGATIVE (NEGATIVE); Protein,Urine Dip NEGATIVE (Negative); Specific Gravity 1.044 (1.005-1.025); Urobilinogen NEGATIVE mg/dL (0-1); WBC 0-2 /HPF (0-5)
[2021-09-02] MEDS ORDERED: ROCEPHIN 1 Gm-D5w 50 ml Bag** 1 G/50 ML IVPB IV STA (21:49)
[2021-09-02] MEDS ORDERED: ROCEPHIN 1 Gm-D5w 50 ml Bag** 1 G/50 ML IVPB IV ONE (21:49)
[2021-09-02 22:00] VITALS: BP 110/65
--- NOTE | 2021-09-03 08:41 | XRAY ---
Indication: Short of breath. Elevated d-dimer. Status post Covid 19 pneumonia. Multiple contiguous axial images obtained through the chest using 100 cc Isovue 370 contrast and PE protocol. Comparison: May 09, 2021. There is good opacification of the pulmonary arteries to include the lobar and segmental branches. No pulmonary embolus. Heart not enlarged. Aorta remains minimally arteriosclerotic without aneurysm/dissection. Stable small mediastinal and left hilar calcified nodes. No pathologic mediastinal/hilar lymphadenopathy. Lungs again hyperinflated with bibasilar subsegmental atelectasis/scarring. Previous diffuse bilateral airspace disease has markedly improved with mild residual versus recurrent patchy disease in both lower lobes. No consolidation or effusion. Previous right middle lobe spiculated masslike opacity not seen today presumed atelectasis. Bony thorax intact again with osteopenia and flowing osteophytes throughout the spine. Limited upper abdomen again demonstrates fatty liver and a few splenic calcified granulomas. Impression: 1. Continue negative pulmonary embolus. 2. Mild residual versus recurrent bilateral lower lobe patchy airspace disease. 3. Again incidental fatty liver and old granulomatous disease.
== END 2021-09-02 22:15 | disposition home or self-care (01) ==
LOC: ED 17:16
DX: J18.9 Pneumonia, unspecified organism (principal); R06.02 Shortness of breath; J44.9 Chronic obstructive pulmonary disease, unspecified; Z99.81 Dependence on supplemental oxygen; Z79.891 Long term (current) use of opiate analgesic; Z79.899 Other long term (current) drug therapy; I45.10 Unspecified right bundle-branch block
CPT/HCPCS: 36000; 36415; 71260; 80053; 81001; 84484; 85025; 85379; 93005; 93041; 94760; 99000; 99284; J0696

== ENCOUNTER 2021-10-03 15:40 | Emergency (ER) | payer MEDICARE, OTHER ==
[2021-10-03] MEDS ORDERED: Pepcid 20 MG VIAL IV ONE (16:09)
[2021-10-03] MEDS ORDERED: Sodium Chloride 0.9% 500 ML 500 ML IV ONE (16:09)
[2021-10-03] MEDS: Pepcid 20 MG VIAL IV ONE (16:11)
[2021-10-03] MEDS: Sodium Chloride 0.9% 500 ML 500 ML IV ONE (16:11)
--- NOTE | 2021-10-03 16:27 | XRAY ---
Indication: General weakness. Comparison: September 18, 2021. Portable chest demonstrates new mild diffuse bilateral patchy airspace disease without consolidation/large effusion. Heart not enlarged.
[2021-10-03 16:51] LABS: ALBUMIN 4.4 g/dL (3.5-5.0); ALKALINE PHOSPHATASE 71 U/L (38-126); ANION GAP 15.7 MEQ/L (5-15); Absolute Neutrophil Ct (ANC) 8.32 (1.4-6.9); BLOOD UREA NITROGEN 19 mg/dL (9-20); Basophil (Absolute #) 0.01 (0-0.4); CHLORIDE 97 mmol/L (98-107); Calcium 9.2 mg/dL (8.4-10.2); Carbon Dioxide 27 mmol/L (22-30); Creatinine 1 0.73 mg/dL (0.66-1.25); EST GLOMERULAR FILTRATION RATE > 60.0 ML/MIN; Eosinophil % 0.2 % (0.00-5.0); Eosinophil (Absolute #) 0.02 (0-0.5); Glucose 106 mg/dL (74-106); Hemoglobin 12.7 gm/dl (12.5-18.0); LIPASE 25 U/L (23-300); Lymphocyte (Absolute #) 1.13 (1.0-4.6); Lymphocytes % 10.7 % (24.0-44.0); Mean Cell Volume 98.3 fl (78-100); Mean Corpuscular Hemoglobin 30.5 pg (26-32); Monocyte (Absolute #) 1.09 (0.0-1.3); Monocytes % 10.3 % (0.0-12.0); Neutrophil % 78.7 % (36.0-66.0); Platelet Count 170 K/mm3 (150-450); Potassium 5.1 mmol/L (3.5-5.1); Red Blood Count 4.17 M/mm3 (4.1-5.6); Red Cell Distribution Width 14.8 % (11.5-14.0); SGOT/AST 40 U/L (17-59); SGPT/ALT 26 U/L (0-50); SODIUM 134 mmol/L (137-145); Total Protein 7.9 g/dL (6.3-8.2); White Blood Count 10.6 K/mm3 (4.0-10.5)
[2021-10-03] MEDS ORDERED: BABY ASPIRIN 81 MG CHEW ONE (17:49)
[2021-10-03] MEDS: BABY ASPIRIN 81 MG CHEW PO ONE (17:50)
[2021-10-03 17:54] VITALS: BP 111/64; PULSE 68
--- NOTE | 2021-10-03 17:56 | ERPHSYRPT ---
- History of Present Illness Time Seen by Provider: 10/03/21 15:44 Source: patient, family, EMS Exam Limitations: no limitations Patient Subjective Stated Complaint: " I feel okay ". Triage Nursing Assessment: Pt presents to ER by ambulance, pt's family stated they noted at home pulse Ox was reading low heart rate - in the 40s. Pt's home health aid stated that he was hard to wake up this morning. Pt arrives alert and slightly confused (hx of dementia). Pt respirations are easy and unlabored at this time. Pt had gallbladder removed 2 days ago in [place]. Pt incision sites look to be healing appropriately. Pt denies pain at this time, is taking at home pain medications post op. Pt did have noted bowel movement prior to discharge from surgery. Pt has had decreased oral intake today. Pulse, motor, sensor is WNL. Physician History: 86-year-old male with multiple medical problems including chronic respiratory failure secondary to COPD on 2 L oxygen, hypertension, hyperlipidemia, anxiety, dementia postop day 2 laparoscopic cholecystectomy at [place] presented in the ER with chief complaint of generalized weakness fatigue and tiredness noticed by family this morning. Per family patient has been difficult to get out of bed and is more sleepy than usual and has some element of confusion as well. Family did notice heart rate in 40s and no history of CAD or CHF. Has been given tramadol for pain after cholecystectomy but has not taken his dose this morning. Patient states he is feeling fine but some weakness all over without any focal weakness. Family thinks could be related to dehydration. Denies any chest pain palpitations or shortness of breath. Timing/Duration: today Severity: moderate Modifying Factors: Worsens With: movement Associated Symptoms: nausea, heartburn, weakness Allergies/Adverse Reactions: morphine Allergy (Severe, Verified 10/03/21 16:01) Anaphylactic Reaction unknown rx Home Medications: Aspirin 81 mg PO LUNCH 04/12/14 [History] Lorazepam 0.5 mg [Ativan 0.5 MG] 0.5 mg PO BID 04/12/14 [History] Rabeprazole Sodium [Aciphex] 20 mg PO BID 04/12/14 [History] Tamsulosin HCl 0.4 mg [Flomax 0.4 MG] 1 cap PO DAILY 11/07/19 [History] Atorvastatin Calcium [Lipitor] 10 mg PO HS 05/09/21 [History] Famotidine 40 mg PO DAILY 09/02/21 [History] Albuterol/Ipratropium 3ml Neb* [DUONEB 0.5-3 MG/3 ml Neb] 1 neb IH BID PRN 10/03/21 [History] Fluticasone/Vilanterol [Breo Ellipta 100-25 Mcg INH] 1 puff IH DAILY 10/03/21 [History] Hydrocodone/Acetaminophen [Hydrocodone-Acetamin 5-325 mg] 1 dose PO Q12H PRN PRN 10/03/21 [History] Midodrine HCl 2.5 mg PO TID 10/03/21 [History] Minocycline HCl 100 mg PO DAILY 10/03/21 [History] Hx Tetanus, Diphtheria Vaccination/Date Given: Yes Hx Influenza Vaccination/Date Given: Yes Hx Pneumococcal Vaccination/Date Given: Yes Immunizations Up to Date: Yes Travel Risk - International Travel Have you traveled outside of the country in past 3 weeks: No - Coronavirus Screening Are you exhibiting any of the following symptoms?: No Close contact with a COVID-19 positive Pt in past 14-21 Days: No - Vaccine Status Have you recieved a Covid-19 vaccination: Yes Privacy Officer: Moderna - Vaccination Dates Date of 2cond Vaccination (if applicable): unknown - Review of Systems Constitutional: Fatigue, Weakness Eyes: No Symptoms Ears, Nose, & Throat: No Symptoms Respiratory: Dyspnea Cardiac: No Symptoms Abdominal/Gastrointestinal: Nausea Genitourinary Symptoms: No Symptoms Musculoskeletal: Arthralgias Skin: No Symptoms Neurological: No Symptoms Endocrine: No Symptoms Hematologic/Lymphatic: No Symptoms Immunological/Allergic: No Symptoms - Past Medical History Pertinent Past Medical History: Yes Neurological History: No Pertinent History ENT History: No Pertinent History Cardiac History: No Pertinent History, Other Respiratory History: Bronchitis, COPD, Pneumonia, Other Endocrine Medical History: No Pertinent History Musculoskeletal History: Osteoarthritis, Other GI Medical History: Hernia History: No Pertinent History Psycho-Social History: No Pertinent History Male Reproductive Disorders: Prostate Problems Other Medical History: heart murmur, Rheumatic fever - Past Surgical History Past Surgical History: Yes Neuro Surgical History: No Pertinent History Cardiac: No Pertinent History Respiratory: Other Gastrointestinal: Cholecystectomy, Hernia Repair Genitourinary: No Pertinent History Musculoskeletal: No Pertinent History Male Surgical History: Prostate Surgery, Testicular Surgery Other Surgical History: sinus surgery - Social History Smoking Status: Former smoker How long have you smoked: 4 years Exposure to second hand smoke: No Drug Use: none Patient Lives Alone: No - Nursing Vital Signs Nursing Vital Signs: Initial Vital Signs Temperature 97.5 F 10/03/21 15:47 Pulse Rate 64 10/03/21 15:47 Respiratory Rate 14 10/03/21 15:47 Blood Pressure 114/75 10/03/21 15:47 O2 Sat by Pulse Oximetry 95 10/03/21 15:47 Pain Scale Pain Intensity 0 - Physical Exam General Appearance: no apparent distress, alert Eye Exam: PERRL/EOMI, eyes nml inspection Ears, Nose, Throat Exam: normal ENT inspection, TMs normal, pharynx normal, moist mucous membranes Neck Exam: normal inspection, non-tender, supple, full range of motion Respiratory Exam: normal breath sounds, rhonchi, wheezing Cardiovascular Exam: regular rate/rhythm, normal heart sounds Gastrointestinal/Abdomen Exam: soft, normal bowel sounds, tenderness (Appropriate tenderness for recent surgery) Extremity Exam: normal inspection, normal range of motion, pelvis stable Neurologic Exam: alert, oriented x 3, cooperative, 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 nml as tested, normal mood/affect, sensation nml, No motor deficits, No sensory deficit Skin Exam: normal color SpO2 Interpretation: normal SpO2: 95 O2 Delivery: Nasal Cannula (2L) - Course EKG Interpreted by Me: RATE ([id number]), Sinus Rhythm, NORMAL AXIS, Right Bundle Branch Block, Non-specific ST Changes, Other (PVCs) Ordered Tests: Active Orders 24 hr Category Date Time Status EKG-ER Only STAT Care 10/03/21 16:03 Active IV Insertion STAT Care 10/03/21 16:03 Active CHEST 1 VIEW (PORTABLE) Stat Exams 10/03/21 16:04 Completed BLOOD CULTURE Stat Lab 10/03/21 16:30 Received BNP [NT PRO BNP] Stat Lab 10/03/21 16:20 Completed CBC W DIFF Stat Lab 10/03/21 16:20 Completed CMP Stat Lab 10/03/21 16:20 Completed LIPASE Stat Lab 10/03/21 16:20 Completed Lactic Acid Stat Lab 10/03/21 16:03 Completed MAG [MAGNESIUM] Stat Lab 10/03/21 16:20 Completed TROPONIN Q3H Lab 10/03/21 16:20 Completed TROPONIN Q3H Lab 10/03/21 19:15 Ordered TROPONIN Q3H Lab 10/03/21 22:15 Ordered TROPONIN Q3H Lab 10/04/21 01:15 Ordered TROPONIN Q3H Lab 10/04/21 04:15 Ordered UA W/RFX UR CULTURE Stat Lab 10/03/21 16:04 Ordered Medication Summary Discontinued Medications Generic Name Dose Route Start Last Admin Trade Name P[place]q PRN Reason Stop Dose Admin Aspirin 324 mg 10/03/21 17:08 10/03/21 17:50 Aspirin 81 Mg Tab.Chew PO 10/03/21 17:09 324 mg STAT ONE Administration Aspirin Confirm 10/03/21 17:49 Aspirin 81 Mg Tab.Chew Administered 10/03/21 17:50 Dose 324 mg .ROUTE .STK-MED ONE Famotidine 20 mg 10/03/21 16:03 10/03/21 16:11 Famotidine 20 Mg/1 Vial IV 10/03/21 16:04 20 mg STAT ONE Administration Famotidine Confirm 10/03/21 16:09 Famotidine 20 Mg/1 Vial Administered 10/03/21 16:10 Dose 20 mg IV .STK-MED ONE Sodium Chloride 500 mls @ 500 mls/hr 10/03/21 16:05 10/03/21 17:51 Sodium Chloride 0.9% 500 Ml IV 10/03/21 17:04 Infused .Q1H ONE Infusion Sodium Chloride Confirm 10/03/21 16:09 Sodium Chloride 0.9% 500 Ml Administered 10/03/21 16:10 Dose 500 mls @ ud IV .STK-MED ONE Lab/Rad Data: Laboratory Result Diagrams 10/03/21 16:20 10/03/21 16:20 Laboratory Results 10/03/21 10/03/21 10/03/21 Range/Units 16:20 16:20 16:20 WBC (4.0-10.5) K/mm3 RBC (4.1-5.6) M/mm3 Hgb (12.5-18.0) gm/dl Hct (42-50) % MCV (78-100) fl MCH (26-32) pg MCHC (32-36) g/dl RDW (11.5-14.0) % Plt Count (150-450) K/mm3 MPV (7.5-11.0) fl Gran % (36.0-66.0) % Eos # (Auto) (0-0.5) Absolute Lymphs (auto) (1.0-4.6) Absolute Monos (auto) (0.0-1.3) Lymphocytes % (24.0-44.0) % Monocytes % (0.0-12.0) % Eosinophils % (0.00-5.0) % Basophils % (0.0-0.4) % Absolute Granulocytes (1.4-6.9) Basophils # (0-0.4) Sodium (137-145) mmol/L Potassium (3.5-5.1) mmol/L Chloride (98-107) mmol/L Carbon Dioxide (22-30) mmol/L Anion Gap (5-15) MEQ/L BUN (9-20) mg/dL Creatinine (0.66-1.25) mg/dL Estimated GFR ML/MIN Glucose (74-106) mg/dL Lactic Acid (0.4-2.0) Calcium (8.4-10.2) mg/dL Magnesium 1.6 (1.6-2.3) mg/dL Total Bilirubin (0.2-1.3) mg/dL AST (17-59) U/L ALT (0-50) U/L Alkaline Phosphatase (38-126) U/L Troponin I 0.464 H* (0.000-0.034) ng/mL NT-Pro-B Natriuret Pep 6410 H (0-1800) pg/mL Serum Total Protein (6.3-8.2) g/dL Albumin (3.5-5.0) g/dL Lipase (23-300) U/L 10/03/21 10/03/21 10/03/21 Range/Units 16:20 16:20 16:03 WBC 10.6 H (4.0-10.5) K/mm3 RBC 4.17 (4.1-5.6) M/mm3 Hgb 12.7 (12.5-18.0) gm/dl Hct 41.0 L (42-50) % MCV 98.3 (78-100) fl MCH 30.5 (26-32) pg MCHC 31.0 L (32-36) g/dl RDW 14.8 H (11.5-14.0) % Plt Count 170 (150-450) K/mm3 MPV 10.0 (7.5-11.0) fl Gran % 78.7 H (36.0-66.0) % Eos # (Auto) 0.02 (0-0.5) Absolute Lymphs (auto) 1.13 (1.0-4.6) Absolute Monos (auto) 1.09 (0.0-1.3) Lymphocytes % 10.7 L (24.0-44.0) % Monocytes % 10.3 (0.0-12.0) % Eosinophils % 0.2 (0.00-5.0) % Basophils % 0.1 (0.0-0.4) % Absolute Granulocytes 8.32 H (1.4-6.9) Basophils # 0.01 (0-0.4) Sodium 134 L (137-145) mmol/L Potassium 5.1 (3.5-5.1) mmol/L Chloride 97 L (98-107) mmol/L Carbon Dioxide 27 (22-30) mmol/L Anion Gap 15.7 H (5-15) MEQ/L BUN 19 (9-20) mg/dL Creatinine 0.73 (0.66-1.25) mg/dL Estimated GFR > 60.0 ML/MIN Glucose 106 (74-106) mg/dL Lactic Acid 2.1 H (0.4-2.0) Calcium 9.2 (8.4-10.2) mg/dL Magnesium (1.6-2.3) mg/dL Total Bilirubin 1.10 (0.2-1.3) mg/dL AST 40 (17-59) U/L ALT 26 (0-50) U/L Alkaline Phosphatase 71 (38-126) U/L Troponin I (0.000-0.034) ng/mL NT-Pro-B Natriuret Pep (0-1800) pg/mL Serum Total Protein 7.9 (6.3-8.2) g/dL Albumin 4.4 (3.5-5.0) g/dL Lipase 25 (23-300) U/L - Progress Progress: improved Progress Note: 10/03/21 17:54 86-year-old is evaluated for generalized weakness fatigue and tiredness since morning with recent laparoscopic cholecystectomy. Patient is given fluid bolus, on reevaluation feeling better. EKG showed sinus rhythm with PVCs and no obvi ous ST elevation. Patient denies any chest pain or shortness of breath while being on 2 L maintaining around 97%. Chest x-ray showed, questionable airspace disease without consolidation which I do not think is pneumonia need antibiotics. White count is 10, minimally elevated lactate 2.1 which could be secondary to recent surgery and has not been hydrating very well. Initial troponins are 0.46, given aspirin. Patient is chest pain-free. 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, discussed with Dr. Ruano, reviewed history, work-up and patient is excepted for transfer. 10/03/21 18:[address] Other (Dr. Ruano [facility]) Counseled pt/family regarding: lab results, diagnosis, need for follow-up, rad results - Departure Departure Disposition: Transfer Clinical Impression: NSTEMI (non-ST elevated myocardial infarction), Generalized weakness Condition: Stable Critical Care Time: No Referrals: JAVIER MCKINNEY MD [Primary Care Provider] - Follow up/PCP as directed
[2021-10-03 17:57] VITALS: O2SAT 95
== END 2021-10-03 18:35 | disposition short-term general hospital (02) ==
LOC: ED 15:40
DX: I21.4 Non-ST elevation (NSTEMI) myocardial infarction (principal); R53.1 Weakness; R53.83 Other fatigue; J96.10 Chronic respiratory failure, unspecified whether with hypoxia or hypercapnia; Z99.81 Dependence on supplemental oxygen; J44.9 Chronic obstructive pulmonary disease, unspecified; I10 Essential (primary) hypertension; E78.5 Hyperlipidemia, unspecified; F03.90 Unspecified dementia, unspecified severity, without behavioral disturbance, psychotic disturbance, mood disturbance, and anxiety; Z79.891 Long term (current) use of opiate analgesic; Z79.899 Other long term (current) drug therapy
CPT/HCPCS: 36415; 71045; 80053; 83605; 83690; 83735; 83880; 84484; 85025; 87040; 93005; 96374; 99285; A9270-GY